=== PATIENT | male | born 1945 | race Caucasian/White ===

== ENCOUNTER 2018-04-03 17:26 | Inpatient (IN) ==
--- NOTE | 2018-04-03 19:45 | Internal Med History&Physical ---
Date of Encounter: 04/04/18 Time of Encounter: 18:58 Assessment and Plan (1) Physical deconditioning Current visit: Yes Status: Acute Patient is admitted with extensive history of medical problems and recently hospitalized at [facility] for Elizabethkingia menigoseptica bacteremia presumed from left lung empyema. He is requiring PT and OT for deconditioning. Therapy will be initiated on Thursday as he came to our facility to late on Thursday. Medically he is stable and receiving IV antibiotics. (2) Bacteremia Current visit: Yes Status: Acute Patient was found to have Elizabethkingia meningoseptica bacteremia that was thought to be due to left lower lobe empyema. A diagnostic thoracentesis though grew no bacteria. He is to be on Levaquin and minocycline for at least 2 weeks (but we still do not have an ID recommendation on paper specifically). He is on the Levaquin every 48 hours. Currently he has no fever, white blood count has been normal and he is feeling much better. He has no acute pulmonary symptoms. Currently he is in contact isolation (3) Anemia Current visit: Yes Status: Chronic Chronically has anemia. He has had upper and lower endoscopies recently without source of any active bleeding. His hemoglobin has been about 7 g when discharged from [facility]. Lab work has been ordered. His long-term anemia intervention in orders is her business and financial counsel Dr. Olivia Hernandez. No active bleeding sites currently. No melena or hematochezia. No cardiac or respiratory symptoms currently. Qualifiers: Anemia type: other cause Other causes of anemia: other cause, not classified Qualified Code(s): D64.89 - Other specified anemias (4) S/P kidney transplant Current visit: No Status: Chronic Status post kidney transplant. Followed by the transplant team at [facility]. He has chronic kidney disease with creatinine in the 2-3 range. [facility] is following his lab work weekly. His fluid restrictions of 2000 mL's daily. He is to avoid salt as well as potassium foods (5) Acute on chronic diastolic CHF (congestive heart failure) Current visit: No Status: Chronic Patient is a history of having had acute on chronic systolic and diastolic heart failure with hypervolemia. His lower extremity edema is much improved. He is now on torsemide 40 mg twice a day and addition of his carvedilol, Imdur and hydralazine. We will monitor his weight daily (6) HTN (hypertension) Current visit: No Status: Chronic Patient is chronic hypertension. Current pressures are reasonable. Continue the same medication from [facility]. Qualifiers: Hypertension type: essential hypertension Qualified Code(s): I10 - Essential (primary) hypertension (7) COPD (chronic obstructive pulmonary disease) Current visit: Yes Status: Acute Chronic COPD, previous tobacco use. Now oxygen dependent. Saturations dropped to the 70s when he is walking. Qualifiers: Emphysema type: unspecified Qualified Code(s): J43.9 - Emphysema, unspecified (8) History of aortic valve replacement with bioprosthetic valve Current visit: No Status: Chronic Currently no angina or CHF. (9) CKD (chronic kidney disease) stage 4, GFR 15-29 ml/min Current visit: Yes Status: Chronic Chronic kidney disease and previous kidney transplant. He is on antirejection medications. Dr. Manning is his business and financial counsel (10) DM type 2 (diabetes mellitus, type 2) Current visit: Yes Status: Chronic Chronically is diabetes. His sugars while hospitalized at [facility] were under good control but he had very little to eat. We anticipate we will need to increase his insulin. We will follow. Qualifiers: Diabetes mellitus complication status: with circulatory complication Qualified Code(s): E11.51 - Type 2 diabetes mellitus with diabetic peripheral angiopathy without gangrene; Z79.4 - shift manager (current) use of insulin; Z79.4 - snf (current) use of insulin; Z79.4 - shift manager (current) use of insulin ; Z79.4 - shift manager (current) use of insulin (11) DVT prophylaxis Current visit: Yes Status: Acute We will continue the DVT prophylaxis with heparin as recommended by [facility] on transfer. Internal Medicine - H&P: HPI Chief complaint: I am here for IV antibiotics and rehab Admitted From: Hospital to Hospital Transfer Plans for Post Hospital Care: Home History of present illness: Mr. Soriano is a 73 year old male with known history of past medical history of systolic and diastolic heart failure, obstructive sleep apnea and on CPAP, chronic hypoxic respiratory failure and oxygen dependent now, status post renal transplant with stage IV chronic kidney disease, recurring transfusions for anemia and negative GI workup, hypertension, status post CABG was transferred to our Rehab Unit for ongoing IV antibiotics and deconditioning. He initially presented to [facility] emergency room with chest pain and dyspnea and upper GI distress, and happened to develop a fever in the ER. 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 He was transferred [facility], he is placed on levofloxacin 750 mg IV every 48 hours and minocycline 200 mg twice a day per infectious disease recommendation. They anticipated ID would recommend 2 more weeks of antibiotics. He underwent diagnostic thoracentesis on 03/27/18 for left sided empyema and later had a chest tube placed. The culture did not grow any bacteria. The chest tube was removed 2 days ago. With treatment he has remained afebrile and his white blood cell count is normal. He does not have any acute respiratory complaints currently. Has occasional cough but breathing much better overall. He has a history of chronic anemia and had 1 unit of blood transfused at [facility]. They continue to monitor his hemoglobin and it has recently slowly dropped down to the 7 g range. He recently has had GI workup twice, including EGD, colonoscopy and capsule endoscopy which were reported as unremarkable. He is on a PPI. He gets Aranesp 60 g weekly and his hemoglobin and anemia issues are followed closely and treatments arranged by Dr. Olivia Rodriguez. Patient also has a history of acute on chronic systolic and diastolic heart failure. He was hypervolemic with diffuse lower extremity edema which is now improved. He was transitioned from IV Lasix to torsemide per nephrology recommendations. He was discharged on torsemide 40 mg twice a day. ( Previously he was also metaxalone Thursday, Thursday and Thursday but apparently that was not to be continued). Chronically he has diabetes. At the hospital he was currently on goal with his Lantus and sliding scale insulin. However it is noted that he was not eating well there. He has a good appetite and is eating better now and will need adjustment on his dosing. Patient has history of hypertension which has been under good control with regimen of carvedilol Imdur and hydralazine. Patient is a history of status post CABG of 4 vessels and history of aortic stenosis and status post AVR. He has not been having any angina at this point. He was previously evaluated by PT and OT at [facility] and they recommended inpatient rehabilitation. Patient becomes dyspneic and hypoxic even on a short walk and requires oxygen. He needed assistance with lower extremity dressing, minimal assistance in the toilet, and needed assistance with ambulation particularly with turning and general weakness and fatigue. Past Med Surg Social Fam HX - Past Medical History Medical history: arthritis, CHF (Systolic and diastolic), COPD, coronary artery disease (CABG 4 vessels), diabetes (Insulin-dependent.), dialysis (No recent dialysis. He has had a kidney transplant.), GERD, GI bleed (History of previous GI bleed. Recent upper and lower endoscopies are negative for source of bleeding), hyperlipidemia, hypertension, peripheral artery disease, renal disease (Status post kidney transplant), valvular heart disease (Status post aortic valve replacement) Additional medical history: ANEMIA Psychiatric history: depression (History of depression well controlled with fluoxetine) - Past Surgical History Surgical History: coronary bypass (CABG) (CABG 4 vessels), heart valve replacement (Aortic valve replacement), transplant (Renal transplant), other Additional surgical history: PIG VALVE AORTIC VALVE REPLACEMENT - Social History Smoking Status: Former smoker Smokeless Tobacco Status: No Alcohol use: none Drug use: none Occupational status: retired Current living situation: Home Activity Level: Mostly sedentary - Family History Mother Adopted: No Family Member Ethnicity: Non- Living Status: Age at : 83 Cause of : Alzheimer's dementia Hx Family Cardiac Disorders: No Hx Family Respiratory Disorders: No Hx Family Cancer: No Hx Family GI Disorders: Yes (Cholecycstectomy) Hx Family Endocrine Disorder: No Hx Family Neuromuscular Disorders: No Hx Family Neurologic Disorders: No Hx Family HEENT Disorders: No Hx Family Autoimmune Disorders: No Father Living Status: Age at : 70 Cause of : Hypertension, prostate cancer Sister Living Status: Still Living Internal Medicine - H&P: Meds Acetaminophen [Tylenol] 325 mg PO Q4HR PRN 05/22/15 [History] Aspirin 81 mg PO DAILY 05/22/15 [History] Saccharomyces Boulardii [Probiotic] 250 mg PO DAILY 05/22/15 [History] Tamsulosin [Flomax] 0.4 mg PO DAILY 05/22/15 [History] Carvedilol [Coreg] 37.5 mg PO BID 04/18/16 [History] Everolimus [Zortress] 0.5 mg PO BID 04/18/16 [History] FLUoxetine HCl [Prozac] 10 mg PO DAILY 04/18/16 [History] Atropine 1% Opth Drops 1 drop LEFT EYE BID 11/04/16 [History] Calcitriol [Rocaltrol] 0.25 mcg PO DAILY 11/04/16 [History] Insulin ASPART [Novolog Flexpen] 100 unit SQ QID PRN 11/04/16 [History] Insulin Glargine [Lantus] 15 - 20 unit SQ DAILY 11/04/16 [History] Budesonide/Formoterol 160/4.5 [Symbicort 160/4.5] 2 puff IH BIDR 04/27/17 [ History] Cholecalciferol (Vitamin D3) [Vitamin D3] 1,000 unit PO DAILY 04/27/17 [History] Umeclidinium [place] [Incruse Ellipta] 62.5 mcg IH DAILY 10/13/17 [History] Albuterol Neb [AccuNeb] 1.25 mg IH Q4HR PRN 04/04/18 [History] Docusate Sodium 100 mg PO BID 04/04/18 [History] Epoetin Abundio [Procrit] 10,000 unit SQ QWEEK 04/04/18 [History] Fluticasone Propionate Nasal [Flonase] 2 spray NS DAILY 04/04/18 [History] Folic Acid 400 mcg PO DAILY 04/04/18 [History] Isosorbide MONOnitrate (24 HR) [Imdur] 30 mg PO DAILY 04/04/18 [History] Levofloxacin 750 MG/150 ML [Levaquin Premix 750mg/150 mL] 750 mg IVPB Q1-2D [History] Minocycline [Minocin] 100 mg PO Q12HR 04/04/18 [History] Pantoprazole Sodium 40 mg PO BID 04/04/18 [History] Polyethylene Glycol 8000 [Polyethylene Glycol] 500 gm MC DAILY 04/04/18 [History ] Torsemide [Demadex] 40 mg PO BID 04/04/18 [History] Vitamin E (Dl,Tocopheryl Acet) [Vitamin E] 400 unit PO BID 04/04/18 [History] hydrALAZINE [HydrALAZINE] 75 mg PO Q8HR 04/04/18 [History] predniSONE [PredniSONE] 5 mg PO DAILY 04/04/18 [History] 3 Allergy/AdvReac Type Severity Reaction Status Date / Time levofloxacin [From Levaquin] Allergy Nausea Verified 04/03/18 20:06 Ayvajyq-Wby-Wrp Reductase Allergy Weakness Verified 04/03/18 20:06 Inhibitor [Statins] - Constitutional Constitutional: fatigue, weakness (Generalized weakness and easy fatigability), no fever(s), no falls - EENT Eyes: no loss of vision Ears: decreased hearing (Chronically has hearing difficulties. Typically he wears his hearing aid.) Nose, mouth and throat: no dysphagia, no mouth pain, no sore throat - Cardiovascular Cardiovascular ROS IM: dyspnea on exertion (He does get short of breath with exertion.), edema (Chronically has lower extremity edema, now markedly improved. ), no chest pain, no dyspnea, no irregular heart rhythm, no orthopnea, no palpitations, no syncope - Respiratory Respiratory: dyspnea on exertion (He does get easily short of breath with ambulation. He requires his oxygen constantly now.), other (He states it feels strange being able to breathe deeply on his left lung.), no dyspnea (No dyspnea at rest.), no wheezing, no pain on inspiration, no chest congestion - Gastrointestinal Gastrointestinal: diarrhea (He had diarrhea after magnesium citrate dosing at [facility] and some incontinence. No current troubles.), no abdominal pain, no constipation, no heartburn, no hematemesis, no loose stools, no melena, no nausea, no vomiting - Genitourinary Genitourinary ROS male: no difficulty urinating, no dysuria - Musculoskeletal Musculoskeletal ROS IM: muscle weakness (Generalized weakness and fatigability.) - Integumentary Integumentary IM: other (Slight skin tear on the right antecubital area. His states that his bottom is red.), no jaundice - Neurological Neurological ROS: weakness (Tries weakness and fatigue.), no confusion, no focal weakness, no radicular pain - Psychiatric Psychiatric: depression (Has had a history of depression and takes fluoxetine. He thinks he is doing relatively well this point. Nothing is worsened and is not suicidal.) - Endocrine Endocrine IM: cold intolerance (He easily gets cold.) - Hematologic/Lymphatic Hematologic/Lymphatic: easy bruising (His multiple bruises particularly on his arms from blood draws.), no lymphadenopathy - Constitutional General appearance: Present: A&O X 3, no acute distress, answers questions appropriately - Eye Eye exam: Present: EOMI. Absent: conjunctival injection, scleral icterus - ENT ENT exam: Present: mucous membranes moist, TM's normal bilaterally Additional comments: He is hard of hearing though. - Neck Neck exam general surgery: Present: full ROM. Absent: lymphadenopathy, tenderness, nuchal rigidity, thyromegaly - Respiratory Additional comments: Slightly diminished breath sounds throughout but clear. This includes the left base which ordinarily has diminished breath sounds and shows good aeration and equal. - Cardiovascular Cardiovascular exam: Present: RRR, +S1, +S2, systolic murmur (2/6 systolic murmur heard over the outlet of the left sternal border.) - GI/Abdominal Additional comments: Abdomen shows his transplant kidney in the right lower quadrant the abdomen and a well-healed scar. He was mildly tender over the left lower quadrant, it appears to be possible hematoma within the skin. No obvious mass otherwise. No guarding or rebound or rigidity. No obvious liver or spleen enlargement. There is no distention. No obvious ascites. - Extremities Exam Additional comments: He has mildly pitting edema two thirds to the knee. However, this is much improved from his recent baseline. There is no calf tenderness. Extremities are warm and dry. Skin is intact, but the heels are very soft, not quite mushy. No blisters or skin breakdown noted in the lower extremities. Upper extremities show multiple bruised areas. He has a small 1 cm skin tear in the right antecubital area without complication. - Incison Comments: Patient has a chest tube drain site in the left lateral chest. Very small incision. No drainage. No redness. Has appropriate tenderness in that area. Covered with sterile dressing. On his left axillary area is a pinpoint-sized area where they first drained fluid and it is healing nicely. Band-Aid was removed. He has a PICC line in the left upper arm area and dressed. - Back Exam Back exam: Absent: CVA tenderness (L), CVA tenderness (R), vertebral tenderness - Neurological Exam Neurological exam: Present: alert, CN II-XII intact (Except he has decreased hearing. This is chronic.), oriented X3, strengths equal and symetr throughout (But has generalized weakness throughout). Absent: altered - Skin Additional comments: He has a 1 cm skin tear in the right antecubital area. Has multiple bruises on both upper extremities. Lower extremities show no skin breakdown but his heels are very soft, not quite mushy. No blisters or bruises noted. The sacral buttock areas show chronic hyperpigmentation from previous skin breakdown. There is a pinpoint-sized open area on the left buttock area near the midline crease. Transverse bruised area noted on the right side.
[2018-04-03] MEDS ORDERED: Albuterol Neb 1.25 MG/3 ML VIAL IH PRN (20:25)
[2018-04-03] MEDS ORDERED: Fluticasone Propionate Nasal 50 MCG/SPRAY BOTTLE NS PRN (20:36)
[2018-04-03] MEDS ORDERED: Dextrose Gel 15 GM/37.5 ML TUBE PO PRN ×2 (20:56)
[2018-04-03] MEDS ORDERED: D5% in Water 1,000 ML IVC PRN (20:56)
[2018-04-03] MEDS ORDERED: *HR* Dextrose 50 % in Water (Syg) 50 ML SYRINGE IVP PRN (20:56)
[2018-04-03] MEDS ORDERED: Insulin DETEMIR 100 UNIT/ML per UNIT SQ ONE (22:00)
[2018-04-03] MEDS: hydrALAZINE 25 MG TABLET PO SCH (22:04)
[2018-04-03] MEDS: Budesonide/Formoterol 160/4.5 1 PUFF INH IH SCH (22:08)
[2018-04-03] MEDS: Insulin LISPRO 300 UNITS/3 ML VIAL SQ SCH (22:09)
[2018-04-03] MEDS: Torsemide 20 MG TABLET PO SCH (22:32)
[2018-04-04] MEDS: *HR* Heparin 5,000 UNIT/ML VIAL SQ SCH ×3 (05:16→22:21)
[2018-04-04] MEDS: hydrALAZINE 25 MG TABLET PO SCH ×3 (05:17→22:22)
[2018-04-04] MEDS: Insulin LISPRO 300 UNITS/3 ML VIAL SQ SCH ×4 (07:44→20:36)
[2018-04-04] MEDS: FLUoxetine HCl 10 MG CAPSULE PO SCH (07:45)
[2018-04-04] MEDS: Folic Acid 1 MG TABLET PO SCH (07:45)
[2018-04-04] MEDS: Aspirin 81 MG TAB.CHEW PO SCH (07:45)
[2018-04-04] MEDS: predniSONE 5 MG TABLET PO SCH (07:45)
[2018-04-04] MEDS: Isosorbide MONOnitrate (24 HR) 30 MG TAB.ER.24H PO SCH (07:46)
[2018-04-04] MEDS: Cholecalciferol (D-3) 1,000 UNIT TABLET PO SCH (07:46)
[2018-04-04] MEDS: Torsemide 20 MG TABLET PO SCH ×2 (07:46→17:13)
[2018-04-04] MEDS: Lactobacillus 1 EACH CAP.SPRINK PO SCH (07:46)
[2018-04-04] MEDS: ZORTRESS PO SCH ×2 (07:47→12:00)
[2018-04-04] MEDS: Atropine 1% Opth Drops 100 DROP/5 ML BOTTLE OP SCH ×2 (07:47→20:25)
[2018-04-04] MEDS: UMECLIDINIUM BROMIDE PO SCH (07:47)
[2018-04-04] MEDS: Budesonide/Formoterol 160/4.5 1 PUFF INH IH SCH ×2 (07:48→22:21)
--- NOTE | 2018-04-04 18:52 | Internal Med Progress Note ---
Date of Encounter: 04/04/18 Time of Encounter: 17:00 - Assessment and plan (1) Physical deconditioning Current Visit: Yes Status: Acute Assessment and plan: He will be initiating therapies tomorrow. (2) Bacteremia Current Visit: Yes Status: Acute Assessment and plan: No fever. No localizing symptoms. Continue with the Levaquin every 48 hours and minocycline every 12 hours. Follow-up lab work for [facility] ordered for the morning (3) Anemia Current Visit: Yes Status: Chronic Assessment and plan: Follow-up lab work ordered for tomorrow. Vitals are stable. Qualifiers: Anemia type: other cause Other causes of anemia: other cause, not classified Qualified Code(s): D64.89 - Other specified anemias (4) S/P kidney transplant Current Visit: No Status: Chronic (5) Acute on chronic diastolic CHF (congestive heart failure) Current Visit: No Status: Chronic Assessment and plan: No signs of congestive heart failure but he does have edema in lower extremities which is improved. (6) HTN (hypertension) Current Visit: No Status: Chronic Assessment and plan: Blood pressure is under good control. Continue same medications. Lab work ordered for tomorrow. Qualifiers: Hypertension type: essential hypertension Qualified Code(s): I10 - Essential (primary) hypertension (7) COPD (chronic obstructive pulmonary disease) Current Visit: Yes Status: Chronic Assessment and plan: Continues wearing his oxygen. Saturations are good. No pulmonary symptoms while in bed. Qualifiers: Emphysema type: unspecified Qualified Code(s): J43.9 - Emphysema, unspecified (8) History of aortic valve replacement with bioprosthetic valve Current Visit: No Status: Chronic (9) CKD (chronic kidney disease) stage 4, GFR 15-29 ml/min Current Visit: Yes Status: Chronic Assessment and plan: Lab work ordered for the morning (10) DM type 2 (diabetes mellitus, type 2) Current Visit: Yes Status: Chronic Assessment and plan: Blood sugar has been in the 200s to 300s. He is eating well. Will slowly get him back up to his 20 units of long-acting nighttime. We will increase from 10 to 14 tonight he has sliding scale available. Qualifiers: Diabetes mellitus complication status: with circulatory complication Qualified Code(s): E11.51 - Type 2 diabetes mellitus with diabetic peripheral angiopathy without gangrene; Z79.4 - aeronautical engineering technologist (current) use of insulin; Z79.4 - aeronautical engineering technologist (current) use of insulin; Z79.4 - custodial (current) use of insulin ; Z79.4 - aeronautical engineering technologist (current) use of insulin (11) DVT prophylaxis Current Visit: Yes Status: Acute - Subjective Interval history: Patient takes he is doing well. Denies any cardiac or respiratory symptoms. His appetite is good. No localizing symptoms currently. He has generalized weakness and fatigue. - Constitutional Vitals: Temp Pulse Resp BP Pulse Ox 98.2 F 72 16 136/55 97 04/04/18 12:00 04/04/18 12:00 04/04/18 12:00 04/04/18 12:00 04/04/18 12:00 General appearance: Present: A&O X 3, no acute distress, answers questions appropriately - Respiratory Respiratory exam: Present: CTAB - Cardiovascular Cardiovascular exam: Present: RRR, +S1, +S2, systolic murmur (2/6 systolic murmur) - GI/Abdominal GI/Abdominal exam: Present: mass (Right lower quadrant renal transplant mass), soft. Absent: tenderness - Extremities Exam Extremities exam: Present: pedal edema (He has less edema of lower extremities. Barely any pitting now.). Absent: calf tenderness, tenderness Consult Discharge Plan - Plan Referrals: Mike Kraus MD [Primary Care Provider] -
[2018-04-04] MEDS ORDERED: Insulin DETEMIR 100 UNIT/ML per UNIT SQ ONE (21:00)
[2018-04-04] MEDS ORDERED: Insulin DETEMIR 100 UNIT/ML X5UNITS SQ SCH (21:00)
[2018-04-05] MEDS: hydrALAZINE 25 MG TABLET PO SCH ×3 (06:16→23:03)
[2018-04-05] MEDS: *HR* Heparin 5,000 UNIT/ML VIAL SQ SCH ×3 (06:16→23:03)
--- NOTE | 2018-04-05 07:02 | Internal Med Progress Note ---
Date of Encounter: 04/05/18 Time of Encounter: 06:59 - Assessment and plan (1) Physical deconditioning Current Visit: Yes Status: Acute Assessment and plan: OT and PT will be initiated today. (2) Bacteremia Current Visit: Yes Status: Acute Assessment and plan: No fever. No localizing symptoms of infection. Continues with his antibiotics. The weekly lab work was drawn today to send to [facility] (3) Anemia Current Visit: Yes Status: Chronic Assessment and plan: Laboratory is pending for today. If his hemoglobin is under 7 we will arrange transfusion Qualifiers: Anemia type: other cause Other causes of anemia: other cause, not classified Qualified Code(s): D64.89 - Other specified anemias (4) S/P kidney transplant Current Visit: No Status: Chronic (5) Acute on chronic diastolic CHF (congestive heart failure) Current Visit: No Status: Chronic Assessment and plan: Currently no signs or symptoms of acute congestive heart failure. He does have chronic edema of lower extremity is which is improved from baseline of a couple weeks ago. His weight is stable (6) HTN (hypertension) Current Visit: No Status: Chronic Assessment and plan: Blood pressure is under control. Lab work pending for today. Qualifiers: Hypertension type: essential hypertension Qualified Code(s): I10 - Essential (primary) hypertension (7) COPD (chronic obstructive pulmonary disease) Current Visit: Yes Status: Chronic Assessment and plan: Currently oxygen dependent. We will continue to monitor with his therapies. Qualifiers: Emphysema type: unspecified Qualified Code(s): J43.9 - Emphysema, unspecified (8) History of aortic valve replacement with bioprosthetic valve Current Visit: No Status: Chronic (9) CKD (chronic kidney disease) stage 4, GFR 15-29 ml/min Current Visit: Yes Status: Chronic Assessment and plan: Weekly lab work is pending for today (10) DM type 2 (diabetes mellitus, type 2) Current Visit: Yes Status: Chronic Assessment and plan: His sugars have been elevated in the 200s and 300s. Last night we increased his long-acting insulin. Lab work pending for this morning. Qualifiers: Diabetes mellitus complication status: with circulatory complication Qualified Code(s): E11.51 - Type 2 diabetes mellitus with diabetic peripheral angiopathy without gangrene; Z79.4 - skilled nursing (current) use of insulin; Z79.4 - skilled nursing (current) use of insulin; Z79.4 - petroleum terminal plant operator (current) use of insulin ; Z79.4 - skilled nursing (current) use of insulin (11) DVT prophylaxis Current Visit: Yes Status: Acute - Subjective Interval history: Patient denies a cardiac or respiratory symptoms. Denies any shortness of breath. He is using his CPAP at night. He uses continuous oxygen. He does get short of breath and weak getting to and from the toilet which is less than 10 feet away. He does not recall having a bowel movement, 1 small one was documented though. I told him to ask for his MiraLAX today. Denies any fevers or chills or rigors. - Constitutional Vitals: Temp Pulse Resp BP Pulse Ox 97.7 F 87 20 135/60 93 04/05/18 00:01 04/05/18 00:01 04/05/18 00:01 04/05/18 00:01 04/05/18 00:01 General appearance: Present: A&O X 3, no acute distress, answers questions appropriately - Respiratory Additional comments: Slightly diminished breath sounds in the extreme left base. No wheezing or rhonchi or respiratory distress. - Cardiovascular Cardiovascular exam: Present: RRR, +S1, +S2, systolic murmur (2/6 systolic murmur) - Extremities Exam Extremities exam: Present: pedal edema (Mild pitting from the mid shins to the feet.). Absent: calf tenderness, tenderness Internal Medicine: Result - Labs Labs: Currently at this time the lab work is pending. Consult Discharge Plan - Plan Referrals: Mike Kraus MD [Primary Care Provider] -
[2018-04-05 07:11] LABS: Basophils % 0.5 %; Eosinophils % 0.3 %; Hematocrit 20.1 % (37.5-50.1); Immature Granulocytes % 1.5 % (0-4); Lymphocytes # 0.5 K/mcL (0.6-4.6); Lymphocytes % 11.6 %; Mean Corpuscular HGB Conc 29.4 g/dL (31.6-35.5); Mean Corpuscular Hemoglobin 25.8 pg (28.0-33.3); Mean Corpuscular Volume 87.8 fL (83.0-100.0); Mean Platelet Volume 10.6 fL (9.4-12.4); Monocytes # 0.8 K/mcL (0.0-1.3); Monocytes % 19.6 %; Neutrophils # 2.6 K/mcL (1.6-8.9); Platelet Count 289 K/mcL (140-400); Red Blood Count 2.29 M/mcL (4.19-5.50); Red Cell Distribution Width 18.2 % (11.5-14.5); Segmented Neutrophils % 66.5 %
[2018-04-05 07:22] LABS: Albumin 2.8 g/dL (3.5-5.7); Albumin/Globulin Ratio 1.2 (1.1-2.2); Bilirubin,Direct 0.1 mg/dL (0.0-0.2); Bilirubin,Indirect 0.3 mg/dL (0.0-1.2); Bilirubin,Total 0.4 mg/dL (0.3-1.0); Calcium 9.4 mg/dL (8.6-10.3); Globulin 2.4 g/dL (2.4-3.5); Potassium 3.7 mEq/L (3.5-5.1); Total Protein 5.2 g/dL (6.4-8.9)
[2018-04-05 07:29] LABS: Hemoglobin 5.9 g/dL (12.9-16.9)
[2018-04-05] MEDS: Insulin LISPRO 300 UNITS/3 ML VIAL SQ SCH ×4 (08:04→23:01)
[2018-04-05] MEDS: Budesonide/Formoterol 160/4.5 1 PUFF INH IH SCH ×2 (08:48→23:05)
[2018-04-05] MEDS: Isosorbide MONOnitrate (24 HR) 30 MG TAB.ER.24H PO SCH (08:51)
[2018-04-05] MEDS: Aspirin 81 MG TAB.CHEW PO SCH (08:51)
[2018-04-05] MEDS: FLUoxetine HCl 10 MG CAPSULE PO SCH (08:52)
[2018-04-05] MEDS: Folic Acid 1 MG TABLET PO SCH (08:52)
[2018-04-05] MEDS: Lactobacillus 1 EACH CAP.SPRINK PO SCH (08:53)
[2018-04-05] MEDS: predniSONE 5 MG TABLET PO SCH (08:54)
[2018-04-05] MEDS: Cholecalciferol (D-3) 1,000 UNIT TABLET PO SCH (08:54)
[2018-04-05] MEDS: Torsemide 20 MG TABLET PO SCH ×2 (08:54→16:54)
[2018-04-05] MEDS: ZORTRESS PO SCH (08:56)
[2018-04-05] MEDS: UMECLIDINIUM BROMIDE PO SCH (09:25)
[2018-04-05] MEDS ORDERED: 0.9 % Sodium Chloride 250 ML ONE (10:24)
[2018-04-05] MEDS: Atropine 1% Opth Drops 100 DROP/5 ML BOTTLE OP SCH ×2 (10:34→23:00)
[2018-04-05] MEDS: Levofloxacin 750 MG/150 ML 750 MG/150 ML BAG IVPB SCH (14:45)
[2018-04-05] MEDS: Insulin DETEMIR 100 UNIT/ML X5UNITS SQ SCH (23:02)
[2018-04-06] MEDS: *HR* Heparin 5,000 UNIT/ML VIAL SQ SCH (05:43)
[2018-04-06] MEDS: hydrALAZINE 25 MG TABLET PO SCH ×3 (05:43→20:30)
[2018-04-06 05:55] LABS: Basophils % 0.5 %; Eosinophils % 0.3 %; Hematocrit 20.6 % (37.5-50.1); Hemoglobin 6.2 g/dL (12.9-16.9); Immature Granulocytes % 1.3 % (0-4); Lymphocytes # 0.5 K/mcL (0.6-4.6); Lymphocytes % 12.6 %; Mean Corpuscular HGB Conc 30.1 g/dL (31.6-35.5); Mean Corpuscular Hemoglobin 26.5 pg (28.0-33.3); Mean Platelet Volume 9.5 fL (9.4-12.4); Monocytes # 0.8 K/mcL (0.0-1.3); Monocytes % 20.4 %; Neutrophils # 2.5 K/mcL (1.6-8.9); Platelet Count 272 K/mcL (140-400); Red Blood Count 2.34 M/mcL (4.19-5.50); Red Cell Distribution Width 17.7 % (11.5-14.5); Segmented Neutrophils % 64.9 %
[2018-04-06] MEDS: Aspirin 81 MG TAB.CHEW PO SCH (10:40)
[2018-04-06] MEDS: Isosorbide MONOnitrate (24 HR) 30 MG TAB.ER.24H PO SCH (10:41)
[2018-04-06] MEDS: Lactobacillus 1 EACH CAP.SPRINK PO SCH (10:41)
[2018-04-06] MEDS: predniSONE 5 MG TABLET PO SCH (10:42)
[2018-04-06] MEDS: FLUoxetine HCl 10 MG CAPSULE PO SCH (10:43)
[2018-04-06] MEDS: Torsemide 20 MG TABLET PO SCH ×2 (10:44→17:58)
[2018-04-06] MEDS: Folic Acid 1 MG TABLET PO SCH (10:46)
[2018-04-06] MEDS: Cholecalciferol (D-3) 1,000 UNIT TABLET PO SCH (10:47)
[2018-04-06] MEDS: ZORTRESS PO SCH (10:51)
[2018-04-06] MEDS: Insulin LISPRO 300 UNITS/3 ML VIAL SQ SCH ×4 (10:51→20:27)
[2018-04-06] MEDS: Atropine 1% Opth Drops 100 DROP/5 ML BOTTLE OP SCH ×2 (10:52→20:26)
[2018-04-06] MEDS: UMECLIDINIUM BROMIDE PO SCH (10:52)
[2018-04-06] MEDS: Budesonide/Formoterol 160/4.5 1 PUFF INH IH SCH ×2 (10:53→20:31)
--- NOTE | 2018-04-06 11:57 | Internal Med Progress Note ---
Date of Encounter: 04/06/18 Time of Encounter: 11:52 - Assessment and plan (1) Physical deconditioning Current Visit: Yes Status: Acute Assessment and plan: His therapy will be held today because of requiring a blood transfusion. We will resume later today or tomorrow. (2) Bacteremia Current Visit: Yes Status: Acute Assessment and plan: Vitals stable. No fever. No subjective symptoms of infection. (3) Anemia Current Visit: Yes Status: Chronic Assessment and plan: He had one unit of blood transfusion she. Today's hemoglobin is 6.2. He will have another unit done today. Afterwards we will recheck another hemoglobin to see if he needs has another unit this afternoon. We are trying to avoid blood transfusion during physical therapy time. I have also forwarded a message to Dr. Peterson regarding management of his iron etc. Qualifiers: Anemia type: other cause Other causes of anemia: other cause, not classified Qualified Code(s): D64.89 - Other specified anemias (4) S/P kidney transplant Current Visit: No Status: Chronic (5) Acute on chronic diastolic CHF (congestive heart failure) Current Visit: No Status: Chronic Assessment and plan: No signs of acute congestive heart failure. (6) HTN (hypertension) Current Visit: No Status: Chronic Qualifiers: Hypertension type: essential hypertension Qualified Code(s): I10 - Essential (primary) hypertension (7) COPD (chronic obstructive pulmonary disease) Current Visit: Yes Status: Chronic Qualifiers: COPD type: emphysema Emphysema type: unspecified Qualified Code(s): J43.9 - Emphysema, unspecified (8) History of aortic valve replacement with bioprosthetic valve Current Visit: No Status: Chronic (9) CKD (chronic kidney disease) stage 4, GFR 15-29 ml/min Current Visit: Yes Status: Chronic (10) DM type 2 (diabetes mellitus, type 2) Current Visit: Yes Status: Chronic Qualifiers: Diabetes mellitus care home insulin use: with care home use Diabetes mellitus complication status: with hyperglycemia Qualified Code(s): E11.65 - Type 2 diabetes mellitus with hyperglycemia; Z79.4 - buttermilk drier operator (current) use of insulin (11) DVT prophylaxis Current Visit: Yes Status: Acute Assessment and plan: We are going to hold the heparin because of his recurring anemia. We will use compression devices on lower extremities. - Subjective Interval history: Patient denies any cardiac or respiratory symptoms. No lightheadedness. He is able get to and from the toilet. No abdominal pain. No obvious signs of bleeding. No melena or hematochezia. No fevers or chills or rigors. - Constitutional Vitals: Temp Pulse Resp BP Pulse Ox 98.8 F 82 14 145/57 96 04/06/18 07:00 04/06/18 07:00 04/06/18 07:00 04/06/18 07:00 04/06/18 07:00 General appearance: Present: A&O X 3, no acute distress, answers questions appropriately - Respiratory Respiratory exam: Present: CTAB (Slightly diminished breath sounds in left base compared to the right. No respiratory distress. No orthopnea.). Absent: rales , wheezes - Cardiovascular Cardiovascular exam: Present: RRR, +S1, +S2, systolic murmur (3/6 systolic murmur heard best at left sternal border.) - GI/Abdominal GI/Abdominal exam: Present: mass (Right lower quadrant renal transplant mass palpable chronically), soft, no peritoneal signs. Absent: tenderness - Extremities Exam Extremities exam: Present: pedal edema (Only trace amount of pretibial edema.). Absent: calf tenderness, tenderness Internal Medicine: Result - Labs CBC & Chem 7: 04/06/18 05:45 04/05/18 06:35 Labs: Short CBC 04/06/18 Range/Units 05:45 WBC 3.9 L (4.3-11.1) K/mcL Hgb 6.2 L (12.9-16.9) g/dL Hct 20.6 L (37.5-50.1) % Plt Count 272 (140-400) K/mcL Neutrophils # 2.5 (1.6-8.9) K/mcL Hemoglobin is down to 6.2. Improved from yesterday and had 1 unit of blood yesterday. Consult Discharge Plan - Plan Referrals: Mike Kraus MD [Primary Care Provider] -
[2018-04-06] MEDS: Insulin DETEMIR 100 UNIT/ML X5UNITS SQ SCH (20:28)
[2018-04-07] MEDS: hydrALAZINE 25 MG TABLET PO SCH ×3 (05:11→20:58)
[2018-04-07 05:58] LABS: Basophils % 0.6 %; Eosinophils % 0.4 %; Hematocrit 24.3 % (37.5-50.1); Hemoglobin 7.5 g/dL (12.9-16.9); Immature Granulocytes % 1.4 % (0-4); Lymphocytes # 0.6 K/mcL (0.6-4.6); Lymphocytes % 11.4 %; Mean Corpuscular HGB Conc 30.9 g/dL (31.6-35.5); Mean Corpuscular Volume 87.4 fL (83.0-100.0); Monocytes % 19.5 %; Neutrophils # 3.3 K/mcL (1.6-8.9); Platelet Count 268 K/mcL (140-400); Red Blood Count 2.78 M/mcL (4.19-5.50); Red Cell Distribution Width 16.9 % (11.5-14.5); Segmented Neutrophils % 66.7 %
[2018-04-07] MEDS: Insulin LISPRO 300 UNITS/3 ML VIAL SQ SCH ×4 (08:14→20:56)
[2018-04-07] MEDS: Aspirin 81 MG TAB.CHEW PO SCH (08:20)
[2018-04-07] MEDS: Cholecalciferol (D-3) 1,000 UNIT TABLET PO SCH (08:21)
[2018-04-07] MEDS: FLUoxetine HCl 10 MG CAPSULE PO SCH (08:21)
[2018-04-07] MEDS: Folic Acid 1 MG TABLET PO SCH (08:21)
[2018-04-07] MEDS: Lactobacillus 1 EACH CAP.SPRINK PO SCH (08:21)
[2018-04-07] MEDS: Torsemide 20 MG TABLET PO SCH ×2 (08:22→16:59)
[2018-04-07] MEDS: Isosorbide MONOnitrate (24 HR) 30 MG TAB.ER.24H PO SCH (08:22)
[2018-04-07] MEDS: predniSONE 5 MG TABLET PO SCH (08:22)
[2018-04-07] MEDS: Atropine 1% Opth Drops 100 DROP/5 ML BOTTLE OP SCH ×2 (08:23→20:56)
[2018-04-07] MEDS: Levofloxacin 750 MG/150 ML 750 MG/150 ML BAG IVPB SCH (08:24)
[2018-04-07] MEDS: Budesonide/Formoterol 160/4.5 1 PUFF INH IH SCH ×2 (08:26→20:55)
[2018-04-07] MEDS: UMECLIDINIUM BROMIDE PO SCH (08:26)
[2018-04-07] MEDS: ZORTRESS PO SCH (08:26)
[2018-04-07] MEDS ORDERED: Nitroglycerin 0.4 MG TAB.SUBL SL PRN (10:34)
[2018-04-07] MEDS ORDERED: Nitroglycerin 0.4 MG TAB.SUBL SL ONE (10:35)
--- NOTE | 2018-04-07 11:02 | Internal Med Progress Note ---
Date of Encounter: 04/07/18 Time of Encounter: 10:36 - Assessment and plan (1) Physical deconditioning Current Visit: Yes Status: Acute Assessment and plan: He is advancing slowly with special therapy, interruptions because of blood transfusions and now chest pain have slowed him down. We will plan to resume therapies after lunch if he has no further chest pains. (2) Bacteremia Current Visit: Yes Status: Acute Assessment and plan: The antibiotics for his bacteremia. No fever or signs of recurrence of infection. (3) Anemia Current Visit: Yes Status: Chronic Assessment and plan: Chronic recurring anemia. He has received 2 units of blood over the past 24 hours. He has had full GI workup couple of times at [facility]. No obvious bleeding sources. 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 We will get baseline BNP, usually this is elevated for him chronically (6) HTN (hypertension) Current Visit: Yes Status: Chronic Qualifiers: Hypertension type: essential hypertension Qualified Code(s): I10 - Essential (primary) hypertension (7) COPD (chronic obstructive pulmonary disease) Current Visit: Yes Status: Chronic Qualifiers: COPD type: emphysema Emphysema type: unspecified Qualified Code(s): J43.9 - Emphysema, unspecified (8) History of aortic valve replacement with bioprosthetic valve Current Visit: No Status: Chronic (9) CKD (chronic kidney disease) stage 4, GFR 15-29 ml/min Current Visit: Yes Status: Chronic (10) DM type 2 (diabetes mellitus, type 2) Current Visit: Yes Status: Chronic Qualifiers: Diabetes mellitus residential insulin use: with residential use Diabetes mellitus complication status: with hyperglycemia Qualified Code(s): E11.65 - Type 2 diabetes mellitus with hyperglycemia; Z79.4 - intermediate project manager (current) use of insulin (11) Chest pain Current Visit: Yes Status: Acute Assessment and plan: I believe his chest pain is noncardiac. It seemed to relieve spontaneously and the nitroglycerin I doubt was of help. His labs and EKG are stable. We will follow clinically. He can resume physical therapy this afternoon if doing well. Cardiology consultation or referral if needed. Qualifiers: Chest pain type: other chest pain Qualified Code(s): R07.89 - Other chest pain; R07.8 - Other chest pain (12) DVT prophylaxis Current Visit: Yes Status: Acute - Subjective Interval history: This morning patient developed chest pain. He states this started in the left side of his chest near the chest tube site and then radiated to left anterior chest below the breast. It started to get more sharp. He denies any dyspnea, radiation to his neck or jaw or shoulder or arm. No related diaphoresis. When I arrived at the bedside his vitals were stable. He did not look uncomfortable. No diaphoresis or dyspnea. We gave him a nitroglycerin sublingually. Did not seem to make much of a difference in the way he looked but he states the pain got better. A friend came to visit at that time and he seemed to be totally comfortable and in no distress. Currently he denies any chest pain, dyspnea, GI or symptoms. All of his above symptoms occurred when he was at rest in his bed. - Constitutional Vitals: Temp Pulse Resp BP Pulse Ox 98.3 F 86 16 136/52 92 04/07/18 07:31 04/07/18 07:31 04/07/18 07:31 04/07/18 07:31 04/07/18 07:31 General appearance: Present: A&O X 3, no acute distress, answers questions appropriately - Respiratory Respiratory exam: Present: decreased breath sounds, CTAB - Cardiovascular Cardiovascular exam: Present: RRR, +S1, +S2, systolic murmur (2 to 3/6 systolic murmur left sternal border.) - GI/Abdominal GI/Abdominal exam: Present: soft. Absent: tenderness - Extremities Exam Additional comments: Small amount of pitting edema in lower extremities, better than his usual baseline at home Internal Medicine: Result - Labs CBC & Chem 7: 04/07/18 11:05 04/07/18 11:05 Labs: Short CBC 04/06/18 04/07/18 Range/Units 16:45 05:35 WBC 4.9 (4.3-11.1) K/mcL Hgb 6.9 L 7.5 L (12.9-16.9) g/dL Hct 24.3 L (37.5-50.1) % Plt Count 268 (140-400) K/mcL Neutrophils # 3.3 (1.6-8.9) K/mcL Patient labs have been reviewed. Hemoglobin is actually increased since the morning. Troponin is negative. Renal function is stable. - Prior EKG Data EKG comments: EKG shows chronic left bundle branch block, anterior fascicular block. T-wave inversions in the lateral leads are improved from baseline. Previous first- degree heart block is gone. No obvious acute ischemic changes noted. - VTE Documentation of Mechanical Device: Intermittent pneumatic compression device Consult Discharge Plan - Plan Referrals: Mike Kraus MD [Primary Care Provider] -
[2018-04-07 11:11] LABS: Basophils % 0.3 %; Eosinophils % 0.3 %; Hemoglobin 7.6 g/dL (12.9-16.9); Immature Granulocytes % 1.4 % (0-4); Lymphocytes # 0.5 K/mcL (0.6-4.6); Lymphocytes % 7.8 %; Mean Corpuscular HGB Conc 31.7 g/dL (31.6-35.5); Mean Corpuscular Hemoglobin 27.6 pg (28.0-33.3); Mean Corpuscular Volume 87.3 fL (83.0-100.0); Mean Platelet Volume 10.3 fL (9.4-12.4); Monocytes # 1.1 K/mcL (0.0-1.3); Monocytes % 19.4 %; Neutrophils # 4.1 K/mcL (1.6-8.9); Platelet Count 284 K/mcL (140-400); Red Blood Count 2.75 M/mcL (4.19-5.50); Red Cell Distribution Width 16.9 % (11.5-14.5); Segmented Neutrophils % 70.8 %
[2018-04-07 11:19] LABS: Anisocytosis 1+ (Not Present); Platelet Estimate Normal (Normal); Poikilocytosis 1+ (Not Present)
[2018-04-07 11:25] LABS: Calcium 9.3 mg/dL (8.6-10.3); Potassium 3.8 mEq/L (3.5-5.1)
[2018-04-07] MEDS: Epoetin Alfa 40,000 UNIT/ML VIAL SQ SCH (12:14)
--- NOTE | 2018-04-07 20:21 | Electrocardiograph Report ---
[place] [id number] Test Date: 2018-04-07 Pat Name: Parish Soriano Department: 2001 Room: 113 Gender: M Consumer Credit Counselor: Tb : 1945 Requested By: Mike Kraus Order Number: [id number] Reading MD: Sandra Yen Measurements Intervals [place] Rate: 82 P: -18 MO: 216 QRS: 7 QRSD: 142 T: 143 QT: 401 QTc: 439 Interpretive Statements SINUS RHYTHM WITH FIRST DEGREE AV BLOCK LEFT BUNDLE BRANCH BLOCK [120+ ms QRS DURATION, 80+ ms Q/S IN V1/V2, 85+ ms R IN I/aVL/V5/V6] Electronically Signed On 04-07-2018 17:03:44 EDT by Sandra Yen
[2018-04-07] MEDS: Insulin DETEMIR 100 UNIT/ML X5UNITS SQ SCH (20:56)
[2018-04-08] MEDS: hydrALAZINE 25 MG TABLET PO SCH ×3 (05:59→22:18)
[2018-04-08] MEDS: Insulin LISPRO 300 UNITS/3 ML VIAL SQ SCH ×4 (08:35→22:20)
[2018-04-08] MEDS: Aspirin 81 MG TAB.CHEW PO SCH (08:36)
[2018-04-08] MEDS: predniSONE 5 MG TABLET PO SCH (08:36)
[2018-04-08] MEDS: Lactobacillus 1 EACH CAP.SPRINK PO SCH (08:36)
[2018-04-08] MEDS: FLUoxetine HCl 10 MG CAPSULE PO SCH (08:37)
[2018-04-08] MEDS: Torsemide 20 MG TABLET PO SCH ×2 (08:37→17:46)
[2018-04-08] MEDS: Isosorbide MONOnitrate (24 HR) 30 MG TAB.ER.24H PO SCH (08:37)
[2018-04-08] MEDS: Folic Acid 1 MG TABLET PO SCH (08:38)
[2018-04-08] MEDS: Cholecalciferol (D-3) 1,000 UNIT TABLET PO SCH (08:39)
[2018-04-08] MEDS: UMECLIDINIUM BROMIDE PO SCH (08:40)
[2018-04-08] MEDS: Budesonide/Formoterol 160/4.5 1 PUFF INH IH SCH ×2 (08:44→22:19)
[2018-04-08] MEDS: Atropine 1% Opth Drops 100 DROP/5 ML BOTTLE OP SCH ×2 (08:45→22:16)
[2018-04-08] MEDS: ZORTRESS PO SCH (08:47)
[2018-04-08] MEDS ORDERED: Ferumoxytol 510 MG in 0.9 % Sodium Chloride 100 ML IVPB ONE (16:00)
--- NOTE | 2018-04-08 17:15 | Internal Med Progress Note ---
Date of Encounter: 04/08/18 Time of Encounter: 17:10 - Assessment and plan (1) Physical deconditioning Current Visit: Yes Status: Acute Assessment and plan: He will continue with his PT and OT. He seems to be tolerating it well. No recurrence of any chest pain. Advance as tolerated. (2) Bacteremia Current Visit: Yes Status: Acute Assessment and plan: Continues with his IV antibiotic every 48 hours and minocycline daily. No fever. No symptoms of infection. We have still not heard back from infectious disease as to what date to follow-up, is supposed to be at 2 weeks. (3) Anemia Current Visit: Yes Status: Chronic Assessment and plan: His last hemoglobin was 7.6. We will recheck tomorrow. No obvious bleeding, melena, hematochezia. We have held his heparin Qualifiers: Anemia type: other cause Other causes of anemia: other cause, not classified Qualified Code(s): D64.89 - Other specified anemias (4) S/P kidney transplant Current Visit: No Status: Chronic (5) Acute on chronic diastolic CHF (congestive heart failure) Current Visit: No Status: Chronic (6) HTN (hypertension) Current Visit: Yes Status: Chronic Assessment and plan: Blood pressure under good control. Qualifiers: Hypertension type: essential hypertension Qualified Code(s): I10 - Essential (primary) hypertension (7) COPD (chronic obstructive pulmonary disease) Current Visit: Yes Status: Chronic Assessment and plan: Still relies on oxygen. Qualifiers: COPD type: emphysema Emphysema type: unspecified Qualified Code(s): J43.9 - Emphysema, unspecified (8) History of aortic valve replacement with bioprosthetic valve Current Visit: No Status: Chronic (9) CKD (chronic kidney disease) stage 4, GFR 15-29 ml/min Current Visit: Yes Status: Chronic (10) DM type 2 (diabetes mellitus, type 2) Current Visit: Yes Status: Chronic Assessment and plan: Sugars are still somewhat elevated. We will increase his Levemir this evening to 16. Typically at home he takes 20 and will advance that direction. Qualifiers: Diabetes mellitus supervisor records change insulin use: with supervisor records change use Diabetes mellitus complication status: with hyperglycemia Qualified Code(s): E11.65 - Type 2 diabetes mellitus with hyperglycemia; Z79.4 - skilled nursing (current) use of insulin (11) DVT prophylaxis Current Visit: Yes Status: Acute Assessment and plan: We discontinue the heparin because of his recurring anemia. He has intermittent compression devices on his lower extremities. No sign of DVT. He is increasing his ambulation and therapies. - Subjective Interval history: Patient states that he has had a good day. Doing well on therapy. Advancing nicely from his point of view. No cardiac chest pain. No dyspnea. His bowel movements have slowed down. He is taking stool softener twice a day. He states his weight is down a pound. - Constitutional Vitals: Temp Pulse Resp BP Pulse Ox 98.1 F 83 17 113/56 97 04/08/18 12:17 04/08/18 12:17 04/08/18 04:00 04/08/18 12:17 04/08/18 12:17 General appearance: Present: A&O X 3, no acute distress, answers questions appropriately Exam: Sitting up at edge of the bed having supper and eating all of it. He is in no distress. - Respiratory Respiratory exam: Present: decreased breath sounds, CTAB - Cardiovascular Cardiovascular exam: Present: RRR, +S1, +S2, systolic murmur (2 to 3/6 systolic murmur) - Extremities Exam Additional comments: Moderate pitting edema of the lower extremities, slightly puffier than yesterday. This is late in the day though. No calf tenderness or redness. Internal Medicine: Result - Labs CBC & Chem 7: 04/07/18 11:05 04/07/18 11:05 - VTE Documentation of Mechanical Device: Intermittent pneumatic compression device Consult Discharge Plan - Plan Referrals: Mike Kraus MD [Primary Care Provider] -
[2018-04-08] MEDS ORDERED: Insulin DETEMIR 100 UNIT/ML per UNIT SQ ONE (21:00)
[2018-04-09] MEDS: hydrALAZINE 25 MG TABLET PO SCH ×3 (06:59→22:20)
--- NOTE | 2018-04-09 07:29 | Internal Med Progress Note ---
Date of Encounter: 04/09/18 Time of Encounter: 07:24 - Assessment and plan (1) Physical deconditioning Current Visit: Yes Status: Acute Assessment and plan: Patient will have his physical therapy held this morning while he gets a blood transfusion. Then can resume after the blood transfusion. He is showing progress in his endurance. Needs continuous oxygen. We will continue with therapy until it is felt that he is safe and is appropriate level of ADLs for discharge. (2) Bacteremia Current Visit: Yes Status: Acute Assessment and plan: Continues with the Levaquin every 48 hours and minocycline orally twice a day. He has follow-up with infectious disease at the 2 week betsey. He has no fever or symptoms of infection. White blood cell count is normal. Weekly blood work scheduled for Thursday (3) Anemia Current Visit: Yes Status: Chronic Assessment and plan: Has recurrence of his anemia with hemoglobin 6.6. He is not symptomatic at this time. No active bleeding sites noted. He has had recent upper and lower GI at [facility]. Nephrology has reinstituted his iron infusions. One unit of blood will be transfused. We will recheck his count this evening and if low again will transfuse in the evening. (we will try to avoid doing transfusions during the daytime when he may be receiving physical therapy instead) Qualifiers: Anemia type: other cause Other causes of anemia: other cause, not classified Qualified Code(s): D64.89 - Other specified anemias (4) S/P kidney transplant Current Visit: No Status: Chronic (5) Acute on chronic diastolic CHF (congestive heart failure) Current Visit: No Status: Chronic Assessment and plan: Lungs are clear. Chronic lower extremity edema has improved. Continue the same diuresis. (6) HTN (hypertension) Current Visit: Yes Status: Chronic Assessment and plan: High blood pressure has been under good control. Stay on the same medication. Lab work ordered for Thursday. Qualifiers: Hypertension type: essential hypertension Qualified Code(s): I10 - Essential (primary) hypertension (7) COPD (chronic obstructive pulmonary disease) Current Visit: Yes Status: Chronic Assessment and plan: Pulmonary status is stable. Needs continuous oxygen. Qualifiers: COPD type: emphysema Emphysema type: unspecified Qualified Code(s): J43.9 - Emphysema, unspecified (8) History of aortic valve replacement with bioprosthetic valve Current Visit: No Status: Chronic (9) CKD (chronic kidney disease) stage 4, GFR 15-29 ml/min Current Visit: Yes Status: Chronic Assessment and plan: His creatinine has been stable, actually slightly improved since his transfer from [facility]. Follow-up blood work scheduled for Thursday. (10) DM type 2 (diabetes mellitus, type 2) Current Visit: Yes Status: Chronic Assessment and plan: Sugars have been under fair control. Has improved since increasing his insulin. We will increase his long-acting insulin to 20 units which is his usual at home. No hypoglycemia noted here Qualifiers: Diabetes mellitus oil heaterman insulin use: with [facility] use Diabetes mellitus complication status: with hyperglycemia Qualified Code(s): E11.65 - Type 2 diabetes mellitus with hyperglycemia; Z79.4 - shelter (current) use of insulin (11) DVT prophylaxis Current Visit: Yes Status: Acute Assessment and plan: Because of his anemia and recurring need for blood transfusion we have discontinued the heparin and initiated lower extremity intermittent compression devices as well as frequent ambulation to avoid DVT. - Subjective Interval history: Patient denies any chest pain, palpitation, dyspnea, GI or symptoms. He said he had a good night rested well. Appetite is good. - Constitutional Vitals: Temp Pulse Resp BP Pulse Ox 97.8 F 87 16 144/62 97 04/09/18 07:17 04/09/18 07:17 04/09/18 07:17 04/09/18 07:17 04/09/18 07:17 General appearance: Present: A&O X 3, no acute distress, answers questions appropriately - Respiratory Respiratory exam: Present: CTAB - Cardiovascular Cardiovascular exam: Present: RRR, +S1, +S2, systolic murmur (2 to 3/6 systolic murmur best heard at the left sternal border) - GI/Abdominal GI/Abdominal exam: Present: mass (Right lower quadrant renal transplant mass), soft. Absent: tenderness - Extremities Exam Additional comments: Still has some mild pitting edema both lower extremities, but starting to get some wrinkles in his feet. No skin breakdown on the heels. Internal Medicine: Result - Labs CBC & Chem 7: 04/09/18 04:38 04/07/18 11:05 Labs: Short CBC 04/09/18 Range/Units 04:38 Hgb 6.6 L (12.9-16.9) g/dL Hemoglobin is 6.6. - VTE Documentation of Mechanical Device: Intermittent pneumatic compression device Consult Discharge Plan - Plan Referrals: Mike Kraus MD [Primary Care Provider] -
[2018-04-09] MEDS: Insulin LISPRO 300 UNITS/3 ML VIAL SQ SCH ×4 (09:26→22:19)
[2018-04-09] MEDS: Isosorbide MONOnitrate (24 HR) 30 MG TAB.ER.24H PO SCH (09:28)
[2018-04-09] MEDS: Aspirin 81 MG TAB.CHEW PO SCH (09:28)
[2018-04-09] MEDS: Folic Acid 1 MG TABLET PO SCH (09:29)
[2018-04-09] MEDS: Lactobacillus 1 EACH CAP.SPRINK PO SCH (09:30)
[2018-04-09] MEDS: FLUoxetine HCl 10 MG CAPSULE PO SCH (09:31)
[2018-04-09] MEDS: predniSONE 5 MG TABLET PO SCH (09:31)
[2018-04-09] MEDS: Cholecalciferol (D-3) 1,000 UNIT TABLET PO SCH (09:31)
[2018-04-09] MEDS: Torsemide 20 MG TABLET PO SCH ×2 (09:31→17:49)
[2018-04-09] MEDS: UMECLIDINIUM BROMIDE PO SCH (09:32)
[2018-04-09] MEDS: Budesonide/Formoterol 160/4.5 1 PUFF INH IH SCH ×2 (09:43→22:20)
[2018-04-09] MEDS: Atropine 1% Opth Drops 100 DROP/5 ML BOTTLE OP SCH ×2 (11:08→22:18)
[2018-04-09] MEDS: ZORTRESS PO SCH (11:09)
[2018-04-09] MEDS: Levofloxacin 750 MG/150 ML 750 MG/150 ML BAG IVPB SCH (12:39)
[2018-04-09] MEDS ORDERED: Insulin DETEMIR 100 UNIT/ML X5UNITS SQ SCH (21:00)
[2018-04-09] MEDS: Insulin DETEMIR 100 UNIT/ML X5UNITS SQ SCH (22:20)
[2018-04-10] MEDS: hydrALAZINE 25 MG TABLET PO SCH ×3 (06:30→21:45)
[2018-04-10] MEDS: Insulin LISPRO 300 UNITS/3 ML VIAL SQ SCH ×4 (08:15→20:22)
[2018-04-10] MEDS: Folic Acid 1 MG TABLET PO SCH (08:16)
[2018-04-10] MEDS: Lactobacillus 1 EACH CAP.SPRINK PO SCH (08:17)
[2018-04-10] MEDS: Torsemide 20 MG TABLET PO SCH ×2 (08:17→17:06)
[2018-04-10] MEDS: Aspirin 81 MG TAB.CHEW PO SCH (08:18)
[2018-04-10] MEDS: Isosorbide MONOnitrate (24 HR) 30 MG TAB.ER.24H PO SCH (08:19)
[2018-04-10] MEDS: Cholecalciferol (D-3) 1,000 UNIT TABLET PO SCH (08:19)
[2018-04-10] MEDS: predniSONE 5 MG TABLET PO SCH (08:19)
[2018-04-10] MEDS: FLUoxetine HCl 10 MG CAPSULE PO SCH (08:20)
[2018-04-10] MEDS: Budesonide/Formoterol 160/4.5 1 PUFF INH IH SCH ×2 (08:22→21:46)
[2018-04-10] MEDS: ZORTRESS PO SCH (08:25)
[2018-04-10] MEDS: Atropine 1% Opth Drops 100 DROP/5 ML BOTTLE OP SCH ×2 (08:25→20:11)
[2018-04-10] MEDS: UMECLIDINIUM BROMIDE PO SCH (08:39)
--- NOTE | 2018-04-10 16:08 | Internal Med Progress Note ---
Date of Encounter: 04/10/18 Time of Encounter: 15:18 - Assessment and plan (1) Physical deconditioning Current Visit: Yes Status: Acute Assessment and plan: - seen with PT today - Continue therapy and advance as tolerated - no potential limitation to therapy identified today including pain (2) Bacteremia Current Visit: Yes Status: Acute Assessment and plan: Continue Levaquin [id number] Continue minocycline BID -total abx [id number] Stable Vital signs Pending ID consultation as outpatient per notes (3) Anemia Current Visit: Yes Status: Chronic Assessment and plan: -most likely combined anemia type of iron def and anemia of chronic inflammation - improved hgb s/p 1 unit RBC - today stable hgb with some improvement from 7.6 to 7.8 - would minimize monitoring blood work to avoid hospital induced anemia Qualifiers: Anemia type: other cause Other causes of anemia: other cause, not classified Qualified Code(s): D64.89 - Other specified anemias (4) S/P kidney transplant Current Visit: No Status: Chronic (5) Acute on chronic diastolic CHF (congestive heart failure) Current Visit: No Status: Chronic (6) HTN (hypertension) Current Visit: Yes Status: Chronic Assessment and plan: controlled Qualifiers: Hypertension type: essential hypertension Qualified Code(s): I10 - Essential (primary) hypertension (7) COPD (chronic obstructive pulmonary disease) Current Visit: Yes Status: Chronic Assessment and plan: - on oxygen for 4 months now - pt self titrate w/o physician monitoring; reporting increasing oxygen when exerting self and at night - pt counselled to only follow the oxygen prescription to avoid depression of respiratory drive and avoid oxygen toxicity Qualifiers: COPD type: emphysema Emphysema type: unspecified Qualified Code(s): J43.9 - Emphysema, unspecified (8) History of aortic valve replacement with bioprosthetic valve Current Visit: No Status: Chronic (9) CKD (chronic kidney disease) stage 4, GFR 15-29 ml/min Current Visit: Yes Status: Chronic (10) DM type 2 (diabetes mellitus, type 2) Current Visit: Yes Status: Chronic Assessment and plan: - sugar this morning at 150 - continue levemir morning at 16u - home levemir at 20u - okay to advance as needed, no changes today Qualifiers: Diabetes mellitus [facility] insulin use: with [facility] use Diabetes mellitus complication status: with hyperglycemia Qualified Code(s): E11.65 - Type 2 diabetes mellitus with hyperglycemia; Z79.4 - termite treater helper (current) use of insulin (11) DVT prophylaxis Current Visit: Yes Status: Acute Assessment and plan: off heparin due to anemia - current recommendations; ambulation - Time Spent With Patient Greater than 35 minutes - Subjective Interval history: Pt was seen walking with therapy this morning and then was seen in his room as well. pt was seen in his room with his Denied: SOB although mentioned that he feels his left lung "has an ice pack" CP Gi or Gu symptoms Last BM reported yesterday; ? constipated but not forced Appetite okay, eats almost 50% of his food Mood stable, and happy to participate in therapy. Reported desire to be outside and did today Had question about his anemia today and the reason for losing Hgb Feels better than yesterday in regard to energy - Constitutional Vitals: Temp Pulse Resp BP Pulse Ox 98.8 F 87 16 136/52 95 04/10/18 07:00 04/10/18 07:00 04/10/18 07:00 04/10/18 07:00 04/10/18 08:54 General appearance: Present: A&O X 3, no acute distress, answers questions appropriately - Head Head exam: Present: atraumatic, normocephalic Additional comments: Nasal canula - Eye Eye exam: Present: PERRL, conjuntiva pink, sclera anicteric Pupils: Present: PERRL - Neck Neck exam general surgery: Present: supple, trachea midline. Absent: lymphadenopathy - Respiratory Respiratory exam: Present: CTAB. Absent: accessory muscle use, rales, rhonchi, wheezes - Cardiovascular Cardiovascular exam: Present: RRR, +S1, +S2. Absent: diastolic murmur, gallop, rubs, systolic murmur - GI/Abdominal GI/Abdominal exam: Present: normal bowel sounds, soft, no peritoneal signs. Absent: distended, tenderness - Extremities Exam Extremities exam: Present: pedal edema, warm, radial pulses palpable and symmetrical. Absent: calf tenderness, cyanotic Additional comments: +2 pitting edema at the knee level bilateral lower extremity - Neurological Exam Neurological exam: Present: CN II-XII intact, oriented X3, no focal deficits. Absent: pronater drift, facial droop, speech deficit - Skin Skin exam: Present: dry, intact Internal Medicine: Result - Labs CBC & Chem 7: 04/09/18 18:30 04/07/18 11:05 Labs: Short CBC 04/09/18 Range/Units 18:30 Hgb 7.8 L (12.9-16.9) g/dL - VTE Documentation of Mechanical Device: Intermittent pneumatic compression device Consult Discharge Plan - Plan Referrals: Mike Kraus MD [Primary Care Provider] -
[2018-04-10] MEDS: Insulin DETEMIR 100 UNIT/ML X5UNITS SQ SCH (20:26)
[2018-04-11] MEDS: hydrALAZINE 25 MG TABLET PO SCH ×3 (05:40→21:38)
[2018-04-11] MEDS: Insulin LISPRO 300 UNITS/3 ML VIAL SQ SCH ×4 (07:55→20:15)
[2018-04-11] MEDS: Torsemide 20 MG TABLET PO SCH ×2 (08:08→17:04)
[2018-04-11] MEDS: Folic Acid 1 MG TABLET PO SCH (08:08)
[2018-04-11] MEDS: Aspirin 81 MG TAB.CHEW PO SCH (08:08)
[2018-04-11] MEDS: Cholecalciferol (D-3) 1,000 UNIT TABLET PO SCH (08:08)
[2018-04-11] MEDS: predniSONE 5 MG TABLET PO SCH (08:08)
[2018-04-11] MEDS: FLUoxetine HCl 10 MG CAPSULE PO SCH (08:08)
[2018-04-11] MEDS: Lactobacillus 1 EACH CAP.SPRINK PO SCH (08:10)
[2018-04-11] MEDS: Isosorbide MONOnitrate (24 HR) 30 MG TAB.ER.24H PO SCH (08:10)
[2018-04-11] MEDS: Levofloxacin 750 MG/150 ML 750 MG/150 ML BAG IVPB SCH (08:12)
[2018-04-11] MEDS: Atropine 1% Opth Drops 100 DROP/5 ML BOTTLE OP SCH ×2 (08:13→20:14)
[2018-04-11] MEDS: Budesonide/Formoterol 160/4.5 1 PUFF INH IH SCH ×2 (08:13→21:40)
[2018-04-11] MEDS: ZORTRESS PO SCH (08:14)
[2018-04-11] MEDS: UMECLIDINIUM BROMIDE PO SCH (08:14)
[2018-04-11 11:56] LABS: Hematocrit 23.6 % (37.5-50.1); Hemoglobin 7.2 g/dL (12.9-16.9)
--- NOTE | 2018-04-11 12:35 | Internal Med Progress Note ---
Date of Encounter: 04/11/18 Time of Encounter: 12:33 - Assessment and plan (1) Physical deconditioning Current Visit: Yes Status: Acute Assessment and plan: - Continue therapy and advance as tolerated - no potential limitation to therapy identified today including pain and Hgb levels (2) Bacteremia Current Visit: Yes Status: Acute Assessment and plan: Continue Levaquin [id number] Continue minocycline BID -total abx [id number] Stable Vital signs Pending ID consultation as outpatient per notes (3) Anemia Current Visit: Yes Status: Chronic Assessment and plan: -most likely combined anemia type of iron def and anemia of chronic inflammation - improved hgb s/p 1 unit RBC -Repeat Hgb stat showed improved from 6.8 to 7.2 - would avoid excessive blood checks to avoid hospital induced anemia on top Qualifiers: Anemia type: other cause Other causes of anemia: other cause, not classified Qualified Code(s): D64.89 - Other specified anemias (4) S/P kidney transplant Current Visit: No Status: Chronic (5) Acute on chronic diastolic CHF (congestive heart failure) Current Visit: No Status: Chronic Assessment and plan: -wt stable still - noted elected BNP on admission as well bilateral lower extremity edema -continue diuretics and monitoring fluid status as needed -Chronic hypoxia is multifactorial at this time; and will continue oxygen -will institute fluid restrictions at 1500cc daily (6) HTN (hypertension) Current Visit: Yes Status: Chronic Assessment and plan: controlled Qualifiers: Hypertension type: essential hypertension Qualified Code(s): I10 - Essential (primary) hypertension (7) COPD (chronic obstructive pulmonary disease) Current Visit: Yes Status: Chronic Assessment and plan: - Chronic hypoxic and on oxygen for 4 months now - pt self titrate w/o physician monitoring; reporting increasing oxygen when exerting self and at night - pt counselled to only follow the oxygen prescription to avoid depression of respiratory drive and avoid oxygen toxicity Qualifiers: COPD type: emphysema Emphysema type: unspecified Qualified Code(s): J43.9 - Emphysema, unspecified (8) History of aortic valve replacement with bioprosthetic valve Current Visit: No Status: Chronic (9) CKD (chronic kidney disease) stage 4, GFR 15-29 ml/min Current Visit: Yes Status: Chronic (10) DM type 2 (diabetes mellitus, type 2) Current Visit: Yes Status: Chronic Assessment and plan: - sugar this morning at 62 and corrected after juice - will decrease levemir morning 16u>>14u - Per notes; home levemir at 20u - diabetic diet Qualifiers: Diabetes mellitus alf insulin use: with intermediate designer use Diabetes mellitus complication status: with hyperglycemia Qualified Code(s): E11.65 - Type 2 diabetes mellitus with hyperglycemia; Z79.4 - shelter (current) use of insulin (11) DVT prophylaxis Current Visit: Yes Status: Acute Assessment and plan: off heparin due to anemia - current recommendations; ambulation - Subjective Interval history: per nursing: received a call that pt 5AM Hgb was 6.8 per nursing and insructed them that I will evaluate pt in the morning pt was seen in his room with his Denied: any changes in breathing or any SOB CP Gi or Gu symptoms constipated; stools are formed Appetite Great! Mood stable, and happy to participate in therapy. Reported desire to be outside - Constitutional Vitals: Temp Pulse Resp BP Pulse Ox 97.6 F 84 16 130/58 96 04/11/18 07:54 04/11/18 07:54 04/11/18 07:54 04/11/18 07:54 04/11/18 07:54 General appearance: Present: A&O X 3, no acute distress, answers questions appropriately - Head Head exam: Present: atraumatic, normocephalic - Eye Eye exam: Present: PERRL, conjuntiva pink, sclera anicteric Pupils: Present: PERRL - Neck Neck exam general surgery: Present: supple, trachea midline. Absent: lymphadenopathy - Respiratory Respiratory exam: Absent: accessory muscle use, rales, rhonchi, wheezes Additional comments: CTA on the Right Sounds Appear to be distant on the Lt base consistent with yesterday's exam - Cardiovascular Cardiovascular exam: Present: RRR, +S1, +S2, systolic murmur. Absent: diastolic murmur, gallop, rubs Additional comments: Correction to yesterday's exam. The pt has a 5/6 systolic murmur - GI/Abdominal GI/Abdominal exam: Present: normal bowel sounds, soft, no peritoneal signs. Absent: distended, tenderness - Extremities Exam Extremities exam: Present: warm, radial pulses palpable and symmetrical. Absent : calf tenderness, cyanotic Additional comments: +2 pitting edema Bilateral lower extremity up to knee level - Neurological Exam Neurological exam: Present: CN II-XII intact, oriented X3, no focal deficits. Absent: pronater drift, facial droop, speech deficit - Skin Skin exam: Present: dry, intact Internal Medicine: Result - Labs CBC & Chem 7: 04/11/18 11:45 04/07/18 11:05 Labs: Short CBC 04/11/18 04/11/18 Range/Units 04:26 11:45 Hgb 6.8 L 7.2 L (12.9-16.9) g/dL Hct 23.6 L (37.5-50.1) % - VTE Documentation of Mechanical Device: Intermittent pneumatic compression device Consult Discharge Plan - Plan Referrals: Mike Kraus MD [Primary Care Provider] -
[2018-04-11] MEDS: Insulin DETEMIR 100 UNIT/ML X5UNITS SQ SCH (20:18)
[2018-04-12] MEDS: hydrALAZINE 25 MG TABLET PO SCH ×3 (05:31→20:13)
--- NOTE | 2018-04-12 07:08 | Internal Med Progress Note ---
Date of Encounter: 04/12/18 Time of Encounter: 07:03 - Assessment and plan (1) Physical deconditioning Current Visit: Yes Status: Acute Assessment and plan: He advances with his therapies. He is having no troubles with pain. Dyspnea is under control with oxygen. I spoke with therapy today and they are going to work with his walker and his own oxygen tank and his and see when it will be safe to go home. I anticipate the next 24-48 hours possibly. (2) Bacteremia Current Visit: Yes Status: Acute Assessment and plan: Nurses are to contact [facility] to see when his follow-up is scheduled. Continue with Levaquin every 48 hours and minocycline twice a day by mouth. No fevers or chills or infectious symptoms. (3) Anemia Current Visit: Yes Status: Chronic Assessment and plan: Continues with chronic anemia. We will try to keep his hemoglobin above 7 gm. He will see Dr. Olivia Rodriguez tomorrow for nephrology consultation. She manages his anemia, iron infusions and Procrit. No obvious bleeding sites. Qualifiers: Anemia type: other cause Other causes of anemia: other cause, not classified Qualified Code(s): D64.89 - Other specified anemias (4) S/P kidney transplant Current Visit: No Status: Chronic (5) Acute on chronic diastolic CHF (congestive heart failure) Current Visit: No Status: Chronic Assessment and plan: He does have extra fluid in his lower extremities but no obvious congestive heart failure. (6) HTN (hypertension) Current Visit: Yes Status: Chronic Assessment and plan: Blood pressures been under good control. Qualifiers: Hypertension type: essential hypertension Qualified Code(s): I10 - Essential (primary) hypertension (7) COPD (chronic obstructive pulmonary disease) Current Visit: Yes Status: Chronic Assessment and plan: requiring oxygen. Qualifiers: COPD type: emphysema Emphysema type: unspecified Qualified Code(s): J43.9 - Emphysema, unspecified (8) History of aortic valve replacement with bioprosthetic valve Current Visit: No Status: Chronic (9) CKD (chronic kidney disease) stage 4, GFR 15-29 ml/min Current Visit: Yes Status: Chronic Assessment and plan: Morning lab work is pending. He sees nephrology tomorrow. (10) DM type 2 (diabetes mellitus, type 2) Current Visit: Yes Status: Chronic Assessment and plan: He did have some mild hypoglycemia in the morning. His evening insulin was cut back from 20-16 units. Will follow at this point. Overall his sugars are reasonably controlled. Qualifiers: Diabetes mellitus jail insulin use: with terminal worker use Diabetes mellitus complication status: with hyperglycemia Qualified Code(s): E11.65 - Type 2 diabetes mellitus with hyperglycemia; Z79.4 - terminal worker (current) use of insulin (11) DVT prophylaxis Current Visit: Yes Status: Acute - Subjective Interval history: Patient denies any respiratory or cardiac symptoms. He states his breathing is at its chronic level like at home. He still requires oxygen. He denies any GI or symptoms except his bowels are not moving well, more gas than stool. His blood sugar went low on morning and he had symptoms. The insulin was decreased. His weight went up about a pound and hospitalist decreased his fluid restriction from 2000 mL to 1500 mL daily. Patient feels that he is getting stronger and is anticipating being able to go home in the next few days. His morning blood work is pending. He has an appointment with nephrology tomorrow. We are checking on follow-up appointment with infectious disease at [facility] - Constitutional Vitals: Temp Pulse Resp BP Pulse Ox 98.1 F 79 17 154/66 99 04/12/18 05:20 04/12/18 05:20 04/12/18 05:20 04/12/18 05:20 04/12/18 05:20 General appearance: Present: A&O X 3, no acute distress, answers questions appropriately - Respiratory Additional comments: Decreased breath sounds in left base with a "hollow" sound. No respiratory distress. No orthopnea. - Cardiovascular Cardiovascular exam: Present: RRR, +S1, +S2, systolic murmur (2/6 systolic murmur) - GI/Abdominal GI/Abdominal exam: Present: soft. Absent: tenderness Additional comments: There is some edema in his skin particularly in his flanks. - Extremities Exam Additional comments: Still has some pitting edema in lower extremities. It appears be stable. He has a few wrinkles in the ankles and feet. Internal Medicine: Result - Labs CBC & Chem 7: 04/11/18 11:45 04/07/18 11:05 Labs: Short CBC 04/11/18 Range/Units 11:45 Hgb 7.2 L (12.9-16.9) g/dL Hct 23.6 L (37.5-50.1) % Morning lab work is pending. - VTE Documentation of Mechanical Device: Intermittent pneumatic compression device Consult Discharge Plan - Plan Referrals: Mike Kraus MD [Primary Care Provider] -
[2018-04-12 07:16] LABS: Basophils % 0.2 %; Eosinophils % 0.4 %; Hematocrit 22.3 % (37.5-50.1); Hemoglobin 6.8 g/dL (12.9-16.9); Immature Granulocytes % 2.1 % (0-4); Lymphocytes # 0.4 K/mcL (0.6-4.6); Mean Corpuscular HGB Conc 30.5 g/dL (31.6-35.5); Mean Corpuscular Hemoglobin 27.5 pg (28.0-33.3); Mean Corpuscular Volume 90.3 fL (83.0-100.0); Mean Platelet Volume 10.5 fL (9.4-12.4); Monocytes % 21.4 %; Neutrophils # 3.3 K/mcL (1.6-8.9); Platelet Count 216 K/mcL (140-400); Red Blood Count 2.47 M/mcL (4.19-5.50); Red Cell Distribution Width 17.9 % (11.5-14.5); Segmented Neutrophils % 66.9 %
[2018-04-12 07:28] LABS: Basophilic Stippling 2+ (Not Present)
[2018-04-12 07:29] LABS: Albumin 2.8 g/dL (3.5-5.7); Bilirubin,Direct 0.2 mg/dL (0.0-0.2); Bilirubin,Indirect 0.3 mg/dL (0.0-1.2); Bilirubin,Total 0.5 mg/dL (0.3-1.0); Calcium 9.6 mg/dL (8.6-10.3); Globulin 2.9 g/dL (2.4-3.5); Potassium 3.6 mEq/L (3.5-5.1); Total Protein 5.7 g/dL (6.4-8.9)
[2018-04-12] MEDS: Insulin LISPRO 300 UNITS/3 ML VIAL SQ SCH ×4 (08:00→20:14)
[2018-04-12] MEDS: UMECLIDINIUM BROMIDE PO SCH (08:01)
[2018-04-12] MEDS: predniSONE 5 MG TABLET PO SCH (08:10)
[2018-04-12] MEDS: Torsemide 20 MG TABLET PO SCH ×2 (08:10→17:23)
[2018-04-12] MEDS: Isosorbide MONOnitrate (24 HR) 30 MG TAB.ER.24H PO SCH (08:10)
[2018-04-12] MEDS: FLUoxetine HCl 10 MG CAPSULE PO SCH (08:10)
[2018-04-12] MEDS: Lactobacillus 1 EACH CAP.SPRINK PO SCH (08:10)
[2018-04-12] MEDS: Folic Acid 1 MG TABLET PO SCH (08:11)
[2018-04-12] MEDS: Aspirin 81 MG TAB.CHEW PO SCH (08:12)
[2018-04-12] MEDS: ZORTRESS PO SCH (08:12)
[2018-04-12] MEDS: Atropine 1% Opth Drops 100 DROP/5 ML BOTTLE OP SCH ×2 (08:18→20:15)
[2018-04-12] MEDS: Cholecalciferol (D-3) 1,000 UNIT TABLET PO SCH (08:18)
[2018-04-12] MEDS: Budesonide/Formoterol 160/4.5 1 PUFF INH IH SCH ×2 (08:18→20:14)
[2018-04-12 16:23] LABS: Hematocrit 22.2 % (37.5-50.1); Hemoglobin 6.7 g/dL (12.9-16.9); Mean Corpuscular HGB Conc 30.2 g/dL (31.6-35.5); Mean Corpuscular Hemoglobin 27.2 pg (28.0-33.3); Mean Corpuscular Volume 90.2 fL (83.0-100.0); Mean Platelet Volume 10.3 fL (9.4-12.4); Platelet Count 228 K/mcL (140-400); Red Blood Count 2.46 M/mcL (4.19-5.50)
--- NOTE | 2018-04-12 20:07 | Physcial Medicine-Consult Note ---
Date of Encounter: 04/12/18 Time of Encounter: 17:00 Physical Medicine - AP (1) Physical deconditioning Status: Acute Assessment and plan: Good progress with rehab. May be able to tolerate a lower O2NC because his current sat is 99% Discharge planning Family Ed. IV therapy, PT and OT. Code(s): R53.81 - Other malaise SNOMED Code(s): 81549582275618 Physical Medicine - HPI - Data of Consult Requesting Physician: Mike Kraus MD Primary Care Provider: Mike Kraus MD - Consult Narrative History of present illness: Mr. Soriano is a 73 year old male CC: Mike Kraus MD 73 year old RH male with known history of past medical history of systolic and diastolic heart failure, obstructive sleep apnea and on CPAP, chronic hypoxic respiratory failure and oxygen dependent now, status post renal transplant with stage IV chronic kidney disease, recurring transfusions for anemia and negative GI workup, hypertension, status post CABG was transferred to our Rehab Unit for ongoing IV antibiotics and deconditioning. He feels he is getting strnger. His O2 requirement is back to baseline at 2LPM. His sat is 99%. He has long standing edema in his legs and uses compression wraps at home. His repeat Hgb today is 6.7 and he is receiving a transfusion. He is hungry on his current dietary restriction. He was hospitalized for 27 days in January and, along with his recent acute hospital stay, has become severely deconditioned. An inpatient rehab stay was medically necessary. Past Med Surg Social Fam HX - Past Medical History Attestation: Yes The following information was validated with the patient. Medical history: arthritis, CHF (Systolic and diastolic), COPD, coronary artery disease (CABG 4 vessels), diabetes (Insulin-dependent.), dialysis (No recent dialysis. He has had a kidney transplant.), GERD, GI bleed (History of previous GI bleed. Recent upper and lower endoscopies are negative for source of bleeding), hyperlipidemia, hypertension, peripheral artery disease, renal disease (Status post kidney transplant), valvular heart disease (Status post aortic valve replacement) Additional medical history: ANEMIA Psychiatric history: depression (History of depression well controlled with fluoxetine) - Past Surgical History Surgical History: coronary bypass (CABG) (CABG 4 vessels), heart valve replacement (Aortic valve replacement), transplant (Renal transplant), other Additional surgical history: PIG VALVE AORTIC VALVE REPLACEMENT - Social History Smoking Status: Former smoker Smokeless Tobacco Status: No Alcohol use: none Drug use: none - Family History Mother Adopted: No Family Member Ethnicity: Non- Living Status: Age at : 83 Cause of : Alzheimer's dementia Hx Family Cardiac Disorders: No Hx Family Respiratory Disorders: No Hx Family Cancer: No Hx Family GI Disorders: Yes (Cholecycstectomy) Hx Family Endocrine Disorder: No Hx Family Neuromuscular Disorders: No Hx Family Neurologic Disorders: No Hx Family HEENT Disorders: No Hx Family Autoimmune Disorders: No Father Living Status: Age at : 70 Cause of : Hypertension, prostate cancer Sister Living Status: Still Living Medications and Allergies Acetaminophen [Tylenol] 325 mg PO Q4HR PRN 05/22/15 [History] Aspirin 81 mg PO DAILY 05/22/15 [History] Saccharomyces Boulardii [Probiotic] 250 mg PO DAILY 05/22/15 [History] Tamsulosin [Flomax] 0.4 mg PO DAILY 05/22/15 [History] Carvedilol [Coreg] 37.5 mg PO BID 04/18/16 [History] Everolimus [Zortress] 0.5 mg PO BID 04/18/16 [History] FLUoxetine HCl [Prozac] 10 mg PO DAILY 04/18/16 [History] Atropine 1% Opth Drops 1 drop LEFT EYE BID 11/04/16 [History] Calcitriol [Rocaltrol] 0.25 mcg PO DAILY 11/04/16 [History] Insulin ASPART [Novolog Flexpen] 100 unit SQ QID PRN 11/04/16 [History] Insulin Glargine [Lantus] 15 - 20 unit SQ DAILY 11/04/16 [History] Budesonide/Formoterol 160/4.5 [Symbicort 160/4.5] 2 puff IH BIDR 04/27/17 [ History] Cholecalciferol (Vitamin D3) [Vitamin D3] 1,000 unit PO DAILY 04/27/17 [History] Umeclidinium [place] [Incruse Ellipta] 62.5 mcg IH DAILY 10/13/17 [History] Albuterol Neb [AccuNeb] 1.25 mg IH Q4HR PRN 04/04/18 [History] Docusate Sodium 100 mg PO BID 04/04/18 [History] Epoetin Abundio [Procrit] 10,000 unit SQ QWEEK 04/04/18 [History] Fluticasone Propionate Nasal [Flonase] 2 spray NS DAILY 04/04/18 [History] Folic Acid 400 mcg PO DAILY 04/04/18 [History] Isosorbide MONOnitrate (24 HR) [Imdur] 30 mg PO DAILY 04/04/18 [History] Levofloxacin 750 MG/150 ML [Levaquin Premix 750mg/150 mL] 750 mg IVPB Q1-2D [History] Minocycline [Minocin] 100 mg PO Q12HR 04/04/18 [History] Pantoprazole Sodium 40 mg PO BID 04/04/18 [History] Polyethylene Glycol 8000 [Polyethylene Glycol] 500 gm MC DAILY 04/04/18 [History ] Torsemide [Demadex] 40 mg PO BID 04/04/18 [History] Vitamin E (Dl,Tocopheryl Acet) [Vitamin E] 400 unit PO BID 04/04/18 [History] hydrALAZINE [HydrALAZINE] 75 mg PO Q8HR 04/04/18 [History] predniSONE [PredniSONE] 5 mg PO DAILY 04/04/18 [History] 3 Allergy/AdvReac Type Severity Reaction Status Date / Time levofloxacin [From Levaquin] Allergy Severe Nausea Verified 04/12/18 20:08 [id number] Reductase Allergy Weakness Verified 04/03/18 20:06 Inhibitor [Statins] All systems: reviewed and no additional remarkable complaints except as stated Physical Medicine - Exam - Constitutional Vitals: Temp Pulse Resp BP Pulse Ox 97.8 F 90 17 103/41 95 04/12/18 18:55 04/12/18 18:55 04/12/18 18:55 04/12/18 18:55 04/12/18 18:55 General appearance: average body habitus, cooperative, no acute distress - Head Head exam: Present: atraumatic, normocephalic - Eye Eye exam: Present: EOMI - ENT ENT exam: Present: mucous membranes moist - Neck Neck exam: Present: full ROM. Absent: tenderness, thyromegaly - Respiratory Respiratory exam: Present: decreased breath sounds. Absent: respiratory distress - Cardiovascular Cardiovascular exam: Present: RRR, systolic murmur - GI/Abdominal GI/Abdominal exam: Present: normal bowel sounds, soft - Extremities Exam Extremities exam: Present: full ROM Additional comments: Strength 4+/5 all. 2-3+ edema BLEs. No calf pain. - Neurological Exam Neurological exam: Present: alert, CN II-XII intact, oriented X3, reflexes normal, no focal deficits, strengths equal and symetr throughout - Psychiatric Psychiatric exam: Present: normal affect, normal mood - Skin Skin exam: Present: intact Physical Medicine - Results - Labs CBC & Chem 7: 04/12/18 16:17 04/12/18 06:50 Labs: Short CBC 04/12/18 04/12/18 Range/Units 06:50 16:17 WBC 4.9 6.2 (4.3-11.1) K/mcL Hgb 6.8 L 6.7 L (12.9-16.9) g/dL Hct 22.3 L 22.2 L (37.5-50.1) % Plt Count 216 228 (140-400) K/mcL Neutrophils # 3.3 (1.6-8.9) K/mcL BMP 04/12/18 06:50 Sodium 139 Potassium 3.6 Chloride 103 Carbon Dioxide 29 BUN 82 H Creatinine 2.72 H Glucose 117 H Calcium 9.6 Liver Function 04/12/18 Range/Units 06:50 Total Bilirubin 0.5 (0.3-1.0) mg/dL Direct Bilirubin 0.2 (0.0-0.2) mg/dL AST 10 L (13-39) Units/L ALT 7 (7-52) Units/L Alkaline Phosphatase 163 H (34-104) Units/L Albumin 2.8 L (3.5-5.7) g/dL Anemia, CKD - Impressions ITS Impressions Chest X-Ray 04/05/18 07:23 IMPRESSION: No significant change in size of left-sided pleural effusion with associated airspace disease which could represent atelectasis or pneumonia. D/ / Donta Delgado MD / Donta Delgado MD Interpreting Provider: Donta Delgado MD Consult Discharge Plan - Plan Referrals: Mike Kraus MD [Primary Care Provider] -
[2018-04-12] MEDS: Insulin DETEMIR 100 UNIT/ML X5UNITS SQ SCH (20:12)
[2018-04-13] MEDS: hydrALAZINE 25 MG TABLET PO SCH ×3 (06:31→20:04)
[2018-04-13] MEDS: Insulin LISPRO 300 UNITS/3 ML VIAL SQ SCH ×4 (07:33→20:02)
[2018-04-13] MEDS: Torsemide 20 MG TABLET PO SCH ×3 (07:40→20:01)
[2018-04-13] MEDS: Atropine 1% Opth Drops 100 DROP/5 ML BOTTLE OP SCH ×2 (07:40→20:00)
[2018-04-13] MEDS: Lactobacillus 1 EACH CAP.SPRINK PO SCH (07:41)
[2018-04-13] MEDS: predniSONE 5 MG TABLET PO SCH (07:41)
[2018-04-13] MEDS: Aspirin 81 MG TAB.CHEW PO SCH (07:42)
[2018-04-13] MEDS: Isosorbide MONOnitrate (24 HR) 30 MG TAB.ER.24H PO SCH (07:43)
[2018-04-13] MEDS: FLUoxetine HCl 10 MG CAPSULE PO SCH (07:43)
[2018-04-13] MEDS: Folic Acid 1 MG TABLET PO SCH (07:43)
[2018-04-13] MEDS: Cholecalciferol (D-3) 1,000 UNIT TABLET PO SCH (07:43)
[2018-04-13] MEDS: Budesonide/Formoterol 160/4.5 1 PUFF INH IH SCH ×2 (07:44→20:02)
[2018-04-13] MEDS: UMECLIDINIUM BROMIDE PO SCH (07:45)
[2018-04-13] MEDS: ZORTRESS PO SCH (07:46)
[2018-04-13] MEDS ORDERED: Ferumoxytol 510 MG in 0.9 % Sodium Chloride 100 ML IVPB ONE ×2 (10:18→14:30)
[2018-04-13] MEDS: Levofloxacin 750 MG/150 ML 750 MG/150 ML BAG IVPB SCH (13:26)
--- NOTE | 2018-04-13 18:09 | Internal Med Progress Note ---
Date of Encounter: 04/13/18 Time of Encounter: 18:04 - Assessment and plan (1) Physical deconditioning Current Visit: Yes Status: Acute Assessment and plan: He is progressing with his therapies and plan is for discharge tomorrow. (2) Bacteremia Current Visit: Yes Status: Acute Assessment and plan: Infectious disease at [facility] recommends continuing antibiotics until seen in the clinic on 04/30/18. We are arranging for home health agency to give him his levofloxacin every 48 hours intravenously. He has no fevers or chills. No obvious infectious symptoms or signs. However, his ESR and CRP have risen. Those results have been sent to [place] as requested. (3) Anemia Current Visit: Yes Status: Chronic Assessment and plan: Ongoing anemia problems. He is requiring a transfusion about every other day. He gets Procrit tomorrow. She had iron infusion as per Dr. Rodriguez's order today. We will check his count in the morning. Qualifiers: Anemia type: other cause Other causes of anemia: other cause, not classified Qualified Code(s): D64.89 - Other specified anemias (4) S/P kidney transplant Current Visit: No Status: Chronic (5) Acute on chronic diastolic CHF (congestive heart failure) Current Visit: No Status: Chronic Assessment and plan: No obvious congestive heart failure or dyspnea of note. He still has edema in lower extremities. We will try to keep his compression device on as well as increase torsemide to 3 times a day (6) HTN (hypertension) Current Visit: Yes Status: Chronic Qualifiers: Hypertension type: essential hypertension Qualified Code(s): I10 - Essential (primary) hypertension (7) COPD (chronic obstructive pulmonary disease) Current Visit: Yes Status: Chronic Qualifiers: COPD type: emphysema Emphysema type: unspecified Qualified Code(s): J43.9 - Emphysema, unspecified (8) History of aortic valve replacement with bioprosthetic valve Current Visit: No Status: Chronic (9) CKD (chronic kidney disease) stage 4, GFR 15-29 ml/min Current Visit: Yes Status: Chronic (10) DM type 2 (diabetes mellitus, type 2) Current Visit: Yes Status: Chronic Qualifiers: Diabetes mellitus retirement insulin use: with truck terminal manager use Diabetes mellitus complication status: with hyperglycemia Qualified Code(s): E11.65 - Type 2 diabetes mellitus with hyperglycemia; Z79.4 - keno terminal operator (current) use of insulin (11) DVT prophylaxis Current Visit: Yes Status: Acute - Subjective Interval history: Patient has been very tired/sleepy today. Apparently he slept through most of his visit with his dev manager. Denies any chest pain. His breathing has been stable. He denies any abdominal pain. He is not hungry for supper tonight. His continue swelling of lower extremities. He and his felt that he got in and out of the car and in and out of the office appropriately well considering he had to wear his oxygen, etc. - Constitutional Vitals: Temp Pulse Resp BP Pulse Ox 97.4 F L 89 16 131/60 96 04/13/18 06:39 04/13/18 06:39 04/13/18 06:39 04/13/18 13:30 04/13/18 00:22 General appearance: Present: A&O X 3, no acute distress, answers questions appropriately Exam: He looks sleepy and tired. But otherwise he is awakened and alert and nontoxic - Respiratory Additional comments: Slightly diminished breath sounds on left side compare the right. No respiratory distress. No rales or rhonchi or wheezing. No orthopnea. - Cardiovascular Cardiovascular exam: Present: RRR, +S1, +S2, systolic murmur (2/6 systolic murmur) - GI/Abdominal GI/Abdominal exam: Present: soft. Absent: tenderness - Extremities Exam Additional comments: Pending edema almost to the knees. Looks a little bit worse today than yesterday. Nontender. No heel breakdown. Internal Medicine: Result - Labs CBC & Chem 7: 04/13/18 05:25 04/12/18 06:50 Labs: Short CBC 04/13/18 Range/Units 05:25 Hgb 7.2 L (12.9-16.9) g/dL Hemoglobin 7.2 after transfusion last night. - VTE Documentation of Mechanical Device: Intermittent pneumatic compression device Consult Discharge Plan - Plan Referrals: Mike Kraus MD [Primary Care Provider] -
--- NOTE | 2018-04-13 18:48 | Discharge Summary ---
- NOTES TO OUTPATIENT PROVIDER Notes to Outpatient Provider: #1. Home Health to evaluate and also arrange Occupational Therapy, Physical Therapy, infusion of his Levaquin every 48 hours and assist being sure blood work done every week for [facility]. #2. He will need frequent hemoglobin testing and possibly transfusions as an outpatient at [facility]. Standing order has been printed. Dr. Rodriguez to be informed of those results as well. #3. Weekly lab work to be done for [facility]. Order has been printed. #4. PICC line care per Home Health Date of Encounter: 04/14/18 Time of Encounter: 10:25 - Discharge Diagnosis (1) Physical deconditioning Priority: Primary Status: Acute Comments: Patient was transferred to [facility] Rehabilitation Unit for deconditioning having had hospitalization at [facility]. He progressed nicely through the PT and OT and now should be safe with his ADLs enough to go home with the care of his , a walker, continuous oxygen. He will need ongoing home health directed PT and OT. Patient is ambulating with his walker. He was able to get in and out of a car and go to and from a doctor's appointment yesterday. (2) Bacteremia Priority: Secondary Status: Acute Comments: Patient is receiving intravenous Levaquin as well as oral minocycline for bacteremia of [place] meningoseptica until his follow-up appointment at infectious disease at [facility] scheduled for 04/30/18. They did not find a specific source of infection even though he had thoracentesis of the left effusion which apparently did not grow bacteria. During the hospital stay he had no fever or chills or signs or symptoms of infection. His white blood cell count has remained normal. However, his CRP and ESR have elevated more. [facility] is following blood work every week. That order has been printed. (3) Anemia Priority: Secondary Status: Chronic Comments: Patient has chronic anemia of iron deficiency as well as chronic kidney disease. He has been receiving blood transfusion about every day or 2 other day or 2 as hemoglobin slips below 7 g. He has received at least 2 iron infusions and gets his weekly Procrit. Dr. Olivia Rodriguez directions those orders. Patient is standing order to get a hemoglobin done and it should be done no later than Thursday of this week. Discharge and globin 7.0. He is not having any angina or CHF. He does have lower extremity edema. Qualifiers: Anemia type: other cause Other causes of anemia: other cause, not classified Qualified Code(s): D64.89 - Other specified anemias (4) S/P kidney transplant Priority: Secondary Status: Chronic Comments: Patient status post kidney transplant and has chronic kidney disease and his creatinine has been in the 2.7 range. He has been followed by Dr. Rodriguez and was seen yesterday. His torsemide was increased from twice a day to 3 times a day. He continues fluid restriction of 1500 mL daily. His weight is down a pound today. Today's weight is 86.4 kg (190 pounds) (5) Acute on chronic diastolic CHF (congestive heart failure) Priority: Secondary Status: Chronic Comments: Patient had history of acute on chronic congestive heart failure when at [facility]. During this hospital stay he has not relapsed. He does have chronic lower extremity edema with mild pitting a most of the knees. He does not tolerate elastic stockings. He has been on compression devices while hospitalized. (6) HTN (hypertension) Priority: Secondary Status: Chronic Comments: Blood pressure has been under relatively good control. No change in his hypertensive medications. Qualifiers: Hypertension type: essential hypertension Qualified Code(s): I10 - Essential (primary) hypertension (7) COPD (chronic obstructive pulmonary disease) Priority: Secondary Status: Chronic Comments: He is now oxygen dependent. Saturations on 2 L run in the high 90s and he can be weaned downward. Without the oxygen he will drop in his 70s with minimal exercise. Even while wearing oxygen and may drop temporarily down to the 80s and recovers quickly. Qualifiers: COPD type: emphysema Emphysema type: unspecified Qualified Code(s): J43.9 - Emphysema, unspecified (8) History of aortic valve replacement with bioprosthetic valve Priority: Secondary Status: Chronic Comments: He has had no CHF or angina during his hospital stay. (9) CKD (chronic kidney disease) stage 4, GFR 15-29 ml/min Priority: Secondary Status: Chronic Comments: As above and followed by Dr. Rodriguez (10) DM type 2 (diabetes mellitus, type 2) Priority: Secondary Status: Chronic Comments: His sugars been under fair control. Sometimes they will be in the 200s. We try to increase his evening long-acting insulin back to 20 units but did have some mornings when it was down to the 60s. He is now back down to 16 units at night and sliding scale during the day. His last like hemoglobin is 4.9% in February, but this is likely falsely low because of his frequent blood transfusions and his Procrit use. Qualifiers: Diabetes mellitus computer terminal operator insulin use: with longterm use Diabetes mellitus complication status: with hyperglycemia Qualified Code(s): E11.65 - Type 2 diabetes mellitus with hyperglycemia; Z79.4 - joint terminal attack controller (current) use of insulin (11) DVT prophylaxis Priority: Secondary Status: Inactive Comments: During hospital stay with his recurring anemia we discontinued his heparin. We used frequent ambulation as well as intermittent compression devices for the lower extremities to help prevent DVT. He has had no calf tenderness or signs of DVT. Hospital course: Mr. Soriano is a 73 year old male was admitted for deconditioning and ongoing treatment for his bacteremia. Please see above diagnoses. Patient has been markedly improved and is stable for discharge today with ongoing home health infusion of the Levaquin and will have close follow-up with [facility] and Dr. Rodriguez. Discharge discussed with: family - Time Spent with Patient Total time spent providing and/or coordinating discharge services: - Discharge Medications Prescriptions: Minocycline [Minocin] 100 mg PO Q12HR 20 Days #40 capsule Polyethylene Glycol 8000 [Polyethylene Glycol] 500 gm MC DAILY 30 Days #30 powder Torsemide [Demadex] 40 mg PO TID #90 tablet Home Medications: Acetaminophen [Tylenol] 325 mg PO Q4HR PRN 05/22/15 [History] Aspirin 81 mg PO DAILY 05/22/15 [History] Saccharomyces Boulardii [Probiotic] 250 mg PO DAILY 05/22/15 [History] Tamsulosin [Flomax] 0.4 mg PO DAILY 05/22/15 [History] Carvedilol [Coreg] 37.5 mg PO BID 04/18/16 [History] Everolimus [Zortress] 0.5 mg PO BID 04/18/16 [History] FLUoxetine HCl [Prozac] 10 mg PO DAILY 04/18/16 [History] Atropine 1% Opth Drops 1 drop LEFT EYE BID 11/04/16 [History] Calcitriol [Rocaltrol] 0.25 mcg PO DAILY 11/04/16 [History] Insulin ASPART [Novolog Flexpen] 100 unit SQ QID PRN 11/04/16 [History] Insulin Glargine [Lantus] 15 - 20 unit SQ DAILY 11/04/16 [History] Budesonide/Formoterol 160/4.5 [Symbicort 160/4.5] 2 puff IH BIDR 04/27/17 [ History] Cholecalciferol (Vitamin D3) [Vitamin D3] 1,000 unit PO DAILY 04/27/17 [History] Umeclidinium [place] [Incruse Ellipta] 62.5 mcg IH DAILY 10/13/17 [History] Albuterol Neb [AccuNeb] 1.25 mg IH Q4HR PRN 04/04/18 [History] Docusate Sodium 100 mg PO BID 04/04/18 [History] Fluticasone Propionate Nasal [Flonase] 2 spray NS DAILY 04/04/18 [History] Folic Acid 400 mcg PO DAILY 04/04/18 [History] Isosorbide MONOnitrate (24 HR) [Imdur] 30 mg PO DAILY 04/04/18 [History] Levofloxacin 750 MG/150 ML [Levaquin Premix 750mg/150 mL] 750 mg IVPB Q1-2D [History] Pantoprazole Sodium 40 mg PO BID 04/04/18 [History] Vitamin E (Dl,Tocopheryl Acet) [Vitamin E] 400 unit PO BID 04/04/18 [History] hydrALAZINE [HydrALAZINE] 75 mg PO Q8HR 04/04/18 [History] predniSONE [PredniSONE] 5 mg PO DAILY 04/04/18 [History] Calcium Carbonate [Tums] 1,250 mg PO TID tab.chew 04/13/18 [Rx] Epoetin Abundio [Procrit] 30,000 unit SQ WE mls 04/13/18 [Rx] Minocycline [Minocin] 100 mg PO Q12HR 20 Days #40 capsule 04/13/18 [Rx] Polyethylene Glycol 8000 [Polyethylene Glycol] 500 gm MC DAILY 30 Days #30 powder 04/13/18 [Rx] Torsemide [Demadex] 40 mg PO TID #90 tablet 04/13/18 [Rx] Allergies/Adverse Reactions: 3 Allergy/AdvReac Type Severity Reaction Status Date / Time levofloxacin [From Levaquin] Allergy Severe Nausea Verified 04/12/18 20:08 [id number] Reductase Allergy Weakness Verified 04/03/18 20:06 Inhibitor [Statins] Date of admission: 04/03/18 18:42 Primary care physician: Mike Kraus MD Consults: 04/03/18 20:16 Consult to Occupational Therapy [CONS] Routine Comment: Evaluate, develop and implement POC Reason for Consult: Eval and Treat Does patient have active BEDREST order?: No Is patient medically & hemodynamically stable?: Yes Patient assessed for mobility or mobilized this visit?: No Consult to Physical Therapy [CONS] Routine Comment: Evaluate, develop and implement POC Reason for Consult: Eval and Treat Does patient have active BEDREST order?: No Is patient medically & hemodynamically stable?: Yes Patient assessed for mobility or mobilized this visit?: No Consult to Recreational Therapy [CONS] Routine Comment: Evaluate, develop and implement POC Consult to Soda Worker [CONS] Routine Reason for SW Consult: discharge planning Discharging clinician: Mike Kraus Anticipated date of discharge: 04/14/18 - Constitutional Vitals: Temp Pulse Resp BP Pulse Ox 97.4 F L 89 16 131/60 96 04/13/18 06:39 04/13/18 06:39 04/13/18 06:39 04/13/18 13:30 04/13/18 00:22 General appearance: Present: A&O X 3, no acute distress, answers questions appropriately Exam: Patient is very sleepy today. No new focal symptoms or signs otherwise. - Respiratory Additional comments: Slightly diminished breath sounds on the left side compared to the right. Otherwise clear and no respiratory distress and no orthopnea. - Cardiovascular Cardiovascular exam: Present: RRR, +S1, +S2, systolic murmur (2/6 systolic murmur over the left sternal border.) - GI/Abdominal GI/Abdominal exam: Present: soft. Absent: tenderness - Extremities Exam Additional comments: Continued edema of lower extremities, mildly pitting to nearly the knee. Weight is down about a pound since yesterday. - Patient Status Disposition: Home Health Service Condition: Fair Functional capacity at discharge: uses cane/walker Overall status at discharge: patient is progressing back to baseline - Discharge Instructions Follow Up With: Mike Kraus MD [Primary Care Provider] - (Follow-up to be arranged by Dr. Kraus's office) - Diet and Activity Activity: ambulate only with your walker, as per physical therapy, increase activity as tolerated, wear oxygen at all times Diet: diabetic diet, low salt diet - VTE Documentation of Mechanical Device: Intermittent pneumatic compression device
--- NOTE | 2018-04-13 18:51 | Physician Discharge Referral ---
Home Health/Hosp Referral Info Transfer to: Home Health Provider in Charge Post Discharge: PCP - Diagnosis (1) Bacteremia Priority: Primary Status: Acute (2) Physical deconditioning Priority: Secondary Status: Acute (3) Anemia Priority: Secondary Status: Chronic (4) S/P kidney transplant Priority: Secondary Status: Chronic (5) Acute on chronic diastolic CHF (congestive heart failure) Priority: Secondary Status: Chronic (6) HTN (hypertension) Priority: Secondary Status: Chronic (7) COPD (chronic obstructive pulmonary disease) Priority: Secondary Status: Chronic (8) History of aortic valve replacement with bioprosthetic valve Priority: Secondary Status: Chronic (9) CKD (chronic kidney disease) stage 4, GFR 15-29 ml/min Priority: Secondary Status: Chronic (10) DM type 2 (diabetes mellitus, type 2) Priority: Secondary Status: Chronic - Respiratory Orders Oxygen / L per min (2 L/nc) Smoking Cessation: Smoking cessation has been advised. For more information, call the [employer] Quit Line at 2-646-CZDV-NOW. - Dressing/Wound Care Site: PICC line care - Diet/Nutrition Diet/Nutrition Orders: No Added Salt (ZAINAB), No Concentrated Sweets - Activity Activity Orders: Walker - Services Needed Following services are medically necessary services: Nursing, Home Health Aide, Physical Therapy, Home Infusion - Transfer Medications Prescriptions: Minocycline [Minocin] 100 mg PO Q12HR 20 Days #40 capsule Polyethylene Glycol 8000 [Polyethylene Glycol] 500 gm MC DAILY 30 Days #30 powder Torsemide [Demadex] 40 mg PO TID #90 tablet Home Medications: Acetaminophen [Tylenol] 325 mg PO Q4HR PRN 05/22/15 [History] Aspirin 81 mg PO DAILY 05/22/15 [History] Saccharomyces Boulardii [Probiotic] 250 mg PO DAILY 05/22/15 [History] Tamsulosin [Flomax] 0.4 mg PO DAILY 05/22/15 [History] Carvedilol [Coreg] 37.5 mg PO BID 04/18/16 [History] Everolimus [Zortress] 0.5 mg PO BID 04/18/16 [History] FLUoxetine HCl [Prozac] 10 mg PO DAILY 04/18/16 [History] Atropine 1% Opth Drops 1 drop LEFT EYE BID 11/04/16 [History] Calcitriol [Rocaltrol] 0.25 mcg PO DAILY 11/04/16 [History] Insulin ASPART [Novolog Flexpen] 100 unit SQ QID PRN 11/04/16 [History] Insulin Glargine [Lantus] 15 - 20 unit SQ DAILY 11/04/16 [History] Budesonide/Formoterol 160/4.5 [Symbicort 160/4.5] 2 puff IH BIDR 04/27/17 [ History] Cholecalciferol (Vitamin D3) [Vitamin D3] 1,000 unit PO DAILY 04/27/17 [History] Umeclidinium [place] [Incruse Ellipta] 62.5 mcg IH DAILY 10/13/17 [History] Albuterol Neb [AccuNeb] 1.25 mg IH Q4HR PRN 04/04/18 [History] Docusate Sodium 100 mg PO BID 04/04/18 [History] Fluticasone Propionate Nasal [Flonase] 2 spray NS DAILY 04/04/18 [History] Folic Acid 400 mcg PO DAILY 04/04/18 [History] Isosorbide MONOnitrate (24 HR) [Imdur] 30 mg PO DAILY 04/04/18 [History] Levofloxacin 750 MG/150 ML [Levaquin Premix 750mg/150 mL] 750 mg IVPB Q1-2D [History] Pantoprazole Sodium 40 mg PO BID 04/04/18 [History] Vitamin E (Dl,Tocopheryl Acet) [Vitamin E] 400 unit PO BID 04/04/18 [History] hydrALAZINE [HydrALAZINE] 75 mg PO Q8HR 04/04/18 [History] predniSONE [PredniSONE] 5 mg PO DAILY 04/04/18 [History] Calcium Carbonate [Tums] 1,250 mg PO TID tab.chew 04/13/18 [Rx] Epoetin Abundio [Procrit] 30,000 unit SQ WE mls 04/13/18 [Rx] Minocycline [Minocin] 100 mg PO Q12HR 20 Days #40 capsule 04/13/18 [Rx] Polyethylene Glycol 8000 [Polyethylene Glycol] 500 gm MC DAILY 30 Days #30 powder 04/13/18 [Rx] Torsemide [Demadex] 40 mg PO TID #90 tablet 04/13/18 [Rx] Allergies/Adverse Reactions: 3 Allergy/AdvReac Type Severity Reaction Status Date / Time levofloxacin [From Levaquin] Allergy Severe Nausea Verified 04/12/18 20:08 [id number] Reductase Allergy Weakness Verified 04/03/18 20:06 Inhibitor [Statins] Certification: Further, I certify that my clinical findings support that this patient is homebound (i.e. absences from home require considerable and taxing effort and are for medical reasons or oriental orthodox services or infrequently or short duration when for other reasons) because: Homebound Reason: Patient requires assistance of a person or device to safely leave home, Absences from home are contraindicated except to recieve medical care, Leaving home requires considerable and taxing effort due to condition Attestation: My signature below is to certify that this patient is under my care and that I, or nurse practitioner, or a physician's camp assistant working with me, has a face-to -face encounter with this patient.
[2018-04-13] MEDS: Insulin DETEMIR 100 UNIT/ML X5UNITS SQ SCH (20:02)
[2018-04-14] MEDS: hydrALAZINE 25 MG TABLET PO SCH (04:55)
[2018-04-14 07:39] VITALS: BP 125/51
[2018-04-14] MEDS: Insulin LISPRO 300 UNITS/3 ML VIAL SQ SCH ×2 (07:58→12:26)
[2018-04-14] MEDS: Lactobacillus 1 EACH CAP.SPRINK PO SCH (08:26)
[2018-04-14] MEDS: Folic Acid 1 MG TABLET PO SCH (08:27)
[2018-04-14] MEDS: FLUoxetine HCl 10 MG CAPSULE PO SCH (08:27)
[2018-04-14] MEDS: predniSONE 5 MG TABLET PO SCH (08:28)
[2018-04-14] MEDS: Isosorbide MONOnitrate (24 HR) 30 MG TAB.ER.24H PO SCH (08:28)
[2018-04-14] MEDS: Cholecalciferol (D-3) 1,000 UNIT TABLET PO SCH (08:28)
[2018-04-14] MEDS: Torsemide 20 MG TABLET PO SCH ×2 (08:29→12:33)
[2018-04-14] MEDS: Budesonide/Formoterol 160/4.5 1 PUFF INH IH SCH (08:29)
[2018-04-14] MEDS: Aspirin 81 MG TAB.CHEW PO SCH (08:29)
[2018-04-14] MEDS: UMECLIDINIUM BROMIDE PO SCH (08:30)
[2018-04-14] MEDS: ZORTRESS PO SCH (08:30)
[2018-04-14] MEDS: Atropine 1% Opth Drops 100 DROP/5 ML BOTTLE OP SCH (08:30)
[2018-04-14] MEDS: Epoetin Alfa 40,000 UNIT/ML VIAL SQ SCH (09:54)
== END 2018-04-14 14:40 | disposition home health service (06) | DRG 945 ==
LOC: INPGRE 18:42
PROVIDERS: ADMIT Family Medicine; ATTEND Family Medicine

== ENCOUNTER 2019-05-02 12:20 | Inpatient (IN) ==
[2019-05-03] MEDS ORDERED: Dextrose Gel 15 GM/37.5 ML TUBE PO PRN ×2 (23:19)
[2019-05-03] MEDS ORDERED: D5% in Water 1,000 ML IVC PRN (23:19)
[2019-05-03] MEDS ORDERED: *HR* Dextrose 50 % in Water (Syg) 50 ML SYRINGE IVP PRN (23:19)
[2019-05-04] MEDS: hydrALAZINE 25 MG TABLET PO SCH ×3 (05:46→20:37)
[2019-05-04 05:53] LABS: Basophils % 0.7 %; Eosinophils # 0.1 K/mcL (0.0-0.6); Eosinophils % 1.5 %; Hematocrit 24.2 % (37.5-50.1); Hemoglobin 7.2 g/dL (12.9-16.9); Immature Granulocytes % 0.5 % (0-4); Lymphocytes # 0.5 K/mcL (0.6-4.6); Lymphocytes % 11.4 %; Mean Corpuscular HGB Conc 29.8 g/dL (31.6-35.5); Mean Corpuscular Hemoglobin 25.4 pg (28.0-33.3); Mean Corpuscular Volume 85.5 fL (83.0-100.0); Mean Platelet Volume 11.4 fL (9.4-12.4); Monocytes # 0.5 K/mcL (0.0-1.3); Monocytes % 12.6 %; Platelet Count 97 K/mcL (140-400); Red Blood Count 2.83 M/mcL (4.19-5.50); Red Cell Distribution Width 18.6 % (11.5-14.5); Segmented Neutrophils % 73.3 %; White Blood Count 4.1 K/mcL (4.3-11.1)
[2019-05-04 05:59] LABS: INR 1.3; Prothrombin Time 14.8 Seconds (9.4-12.1)
[2019-05-04 06:01] LABS: Activated Partial Thrombo Time 40.9 Seconds (26.0-36.0)
[2019-05-04 06:10] LABS: BUN/Creatinine Ratio 30 (6-26); Blood Urea Nitrogen 105 mg/dL (8-23); Vancomycin,Random 28 mcg/mL; eGFR For African Americans 21 (> 60); eGFR For Non-African Americans 17 (> 60)
[2019-05-04] MEDS: Insulin LISPRO 300 UNITS/3 ML VIAL SQ SCH ×4 (08:35→20:36)
[2019-05-04] MEDS ORDERED: Epoetin Alfa 40,000 UNIT/ML VIAL SQ SCH (09:00)
[2019-05-04] MEDS: Isosorbide MONOnitrate (24 HR) 30 MG TAB.ER.24H PO SCH (09:28)
[2019-05-04] MEDS: Everolimus [Zortress] 0.5 MG PO SCH ×2 (09:28→20:37)
[2019-05-04] MEDS: Lactobacillus 1 EACH CAP.SPRINK PO SCH (09:28)
[2019-05-04] MEDS: Torsemide 20 MG TABLET PO SCH ×2 (09:28→17:07)
[2019-05-04] MEDS: Folic Acid 1 MG TABLET PO SCH (09:28)
[2019-05-04] MEDS: Aspirin 81 MG TAB.CHEW PO SCH (09:28)
[2019-05-04] MEDS: amLODIPine 5 MG TABLET PO SCH (09:28)
[2019-05-04] MEDS: Zinc Sulfate 220 MG CAPSULE PO SCH (09:29)
[2019-05-04] MEDS: FLUoxetine HCl 10 MG CAPSULE PO SCH (09:29)
[2019-05-04] MEDS: Vitamin E 200 UNIT (90MG) CAPSULE PO SCH ×2 (09:29→20:36)
--- NOTE | 2019-05-04 09:50 | Internal Med History&Physical ---
Date of Encounter: 05/07/19 Time of Encounter: 09:42 Assessment and Plan (1) Physical deconditioning Current visit: Yes Status: Acute Patient is admitted to rehabilitation unit for deconditioning following hospital stay at [facility] for acute on chronic kidney disease, bacterial endocarditis and other medical problems. He will have therapies here with plan to return to home with his . Currently he is using a walker and is oxygen dependent. He lives in a one-story home his is the caregiver. 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 I did not find any positive blood culture report in the records. 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 He will be on vancomycin for [facility] recommendations and we will follow their orders and will have lab work drawn per their request. He has a PICC line in place. His previous port has been removed (3) Anemia Current visit: Yes Status: Chronic Chronic anemia of chronic disease, chronic kidney disease and known AV malformations. Typically his blood count runs in the 7-8 g range. When it d rops below 7 he receives a unit of blood. He had a blood transfusion in the past 2 days. Hemoglobin is now 7.2. Qualifiers: Anemia type: iron deficiency Iron deficiency anemia type: unspecified iron deficiency Qualified Code(s): D50.9 - Iron deficiency anemia, unspecified (4) CAD (coronary artery disease) of artery bypass graft Current visit: Yes Status: Chronic Known coronary artery disease and history of CABG. Currently he is stable wit hout angina or CHF. He had a recent DOMINGUEZ which showed LV systolic function is normal and estimated EF 55-60%. He has 2 globular mobile masses in the left ventricle attached to the mitral annulus, the larger of which measures approximately 1.53 cm a smaller one of 1.01.5 cm. Differential diagnosis includes vegetation and thrombus. Qualifiers: [place] vs. transplanted heart: [place] heart Associated angina: without angina Qualified Code(s): I25.810 - Atherosclerosis of coronary artery bypass graft(s) without angina pectoris (5) S/P kidney transplant Current visit: Yes Status: Chronic He is followed by housetrailer servicer in [place] as well as Dr. Rodriguez at [place]. His new creatinine baseline is 3-3.5. Laboratory to be obtained twice per week and sent [facility] (6) HTN (hypertension) Current visit: Yes Status: Chronic Long-standing history of hypertension. Currently his blood pressures under control. Continue same medications. Qualifiers: Hypertension type: essential hypertension Qualified Code(s): I10 - Essent ial (primary) hypertension (7) DM (diabetes mellitus) Current visit: Yes Status: Chronic Patient has long-standing history of diabetes. His last glycohemoglobin in January was 7.9%. (this may be underestimated because he has frequent blood transfusions). He now uses long-acting insulin and short acting for coverage. Will follow. Qualifiers: Diabetes mellitus type: type 2 Diabetes mellitus halfway insulin use: with exterminator termite use Diabetes mellitus complication status: with kidney complications Diabetes mellitus complication detail: with chronic kidney disease Chronic kidney disease stage: stage 4 (severe) Qualified Code(s): E11.22 - Type 2 diabetes mellitus with diabetic chronic kidney disease; N18.4 - Chronic kidney disease, stage 4 (severe); Z79.4 - watermelon inspector (current) use of insulin (8) COPD (chronic obstructive pulmonary disease) Current visit: Yes Status: Chronic COPD from previous tobacco use. He is now oxygen dependent. He also has a chronic left pleural effusion, too small to undergo thoracentesis at [facility]. He becomes dyspneic when walking to the dining room to his room, uses 2 L per nasal cannula. To me he looks like he is at his baseline. Qualifiers: COPD type: emphysema Emphysema type: unspecified Qualified Code(s): J43.9 - Emphysema, unspecified (9) History of aortic valve replacement with bioprosthetic valve Current visit: Yes Status: Chronic History of aortic valve replacement. He has a good ejection fraction now. He does have a change of lesions on his mitral valve and being treated for presumed bacteremia from that. (10) CKD (chronic kidney disease) stage 4, GFR 15-29 ml/min Current visit: Yes Status: Chronic His creatinine used to run about 2.5, now his "new baseline" is about 3.5. He is followed by nephrology in [place] as well as Dr. Rodriguez. He will have lab work on a frequent basis. (11) DVT prophylaxis Current visit: Yes Status: Acute With his history of severe anemia, requiring blood transfusions, GI bleed history he is not a good candidate Lovenox/heparin. He will be ambulated every day for prevention of DVT. Internal Medicine - H&P: HPI Chief complaint: I am here to get stronger Admitted From: Hospital to Hospital Transfer Plans for Post Hospital Care: Home History of present illness: Mr. Soriaon is a 74 year old male with known history of CAD status post CABG, bioprosthetic AV, chronic systolic/diastolic heart failure, chronic kidney disease stage IV, status post renal transplant, chronic anemia with history of AV malformations is admitted to a rehabilitation unit with history of deconditioning following hospitalization at [facility]. He was admitted to [facility] 04/18/19 with a history of weakness, falling episode, acute kidney injury on chronic kidney disease. He was eventually found to have new vegetation on mitral valve and felt to have endocarditis. He has a previous history of bacteremia with Elizabethkingia meningoseptia that was treated with vancomycin. I do not see any blood cultures in his chart, I saw a comment that he refused blood cultures for fear it would make his anemia worse. With the new vegetative lesions however he was started on vancomycin. He had a chronic indwelling port and they feel the infection may have seeded from that. It was removed and he had a PICC line placed in the right upper extremity. During his hospital stay he received 1 unit of blood with hemoglobin dropped below 7 to 6.8gms. He had some problems with some urinary retention holding 300 mL and had a catheter for a few days. He is now emptying well and reports only 30 mL residual. He has a chronic left pleural effusion. They planned a thoracentesis but found the pocket of fluid was so small that it was not worth trying to tap it. He was told by his housetrailer servicer in [place] that he is "new baseline" is no longer in the 2 range, it is now in the 3 range. He is here because of deconditioning. He states that his lower extremities are very weak when he walks and his left knee feels like it might give out. Walking for the dining room back to his room he had "burning" in his lower extremities. He does get short of breath easily and is chronically oxygen dependent. After walking back to the room his saturation was 90% at 2 L per nasal cannula. He denies a cardiac type chest pain. Denies any nausea or vomiting. Past Med Surg Social Fam HX - Past Medical History Medical history: arthritis, CHF (History of systolic and diastolic congestive heart failure. Chronic left pleural effusion.), COPD (Oxygen dependent at 2 L), coronary artery disease (Status post CABG), diabetes, dialysis, GERD, GI bleed (History of AV malformations and chronic anemia), hyperlipidemia, hypertension, peripheral artery disease, renal disease (Stage IV CKD, history of recent SAMEER, status post renal transplant), valvular heart disease Additional medical history: kidney transplant Psychiatric history: depression - Past Surgical History Surgical History: coronary bypass (CABG), heart valve replacement (Status post aortic valve replacement), transplant, other Additional surgical history: PIG VALVE AORTIC VALVE REPLACEMENT - Social History Smoking Status: Former smoker Smokeless Tobacco Status: No Alcohol use: none Drug use: none Current living situation: Home, With Family (His is his caregiver. They live in a one-story home now.) Activity Level: Uses cane/walker Recent Out of Country Travel Within the Last 8 Weeks: No Exposure or Possible Exposure to Illness During Travel: No - Family History Mother Adopted: No Family Member Ethnicity: Non- Living Status: Hx Family Cardiac Disorders: No Hx Family Respiratory Disorders: No Hx Family Cancer: No Hx Family GI Disorders: Yes (Cholecycstectomy) Hx Family Endocrine Disorder: No Hx Family Neuromuscular Disorders: No Hx Family Neurologic Disorders: No Hx Family HEENT Disorders: No Hx Family Autoimmune Disorders: No Father Living Status: Sister Living Status: Still Living Internal Medicine - H&P: Meds Acetaminophen [Tylenol] 325 mg PO Q4HR PRN 05/22/15 [History] Saccharomyces Boulardii [Probiotic] 250 mg PO DAILY 05/22/15 [History] Tamsulosin [Flomax] 0.4 mg PO DAILY 05/22/15 [History] Carvedilol [Coreg] 50 mg PO BID 04/18/16 [History] Everolimus [Zortress] 1 mg PO BID 04/18/16 [History] FLUoxetine HCl [Prozac] 10 mg PO DAILY 04/18/16 [History] Calcitriol [Rocaltrol] 0.5 mcg PO DAILY 11/04/16 [History] Insulin ASPART [Novolog Flexpen] 100 unit SQ QID PRN 11/04/16 [History] Insulin Glargine [Lantus] 15 - 20 unit SQ DAILY 11/04/16 [History] Budesonide/Formoterol 160/4.5 [Symbicort 160/4.5] 2 puff IH BIDR 04/27/17 [History] Cholecalciferol (Vitamin D3) [Vitamin D3] 1,000 unit PO DAILY 04/27/17 [History] Albuterol Neb [AccuNeb] 1.25 mg IH Q4HR PRN 04/04/18 [History] Folic Acid 400 mcg PO DAILY 04/04/18 [History] Isosorbide MONOnitrate (24 HR) [Imdur] 30 mg PO DAILY 04/04/18 [History] Vitamin E (Dl,Tocopheryl Acet) [Vitamin E] 400 unit PO BID 04/04/18 [History] hydrALAZINE [HydrALAZINE] 75 mg PO Q8HR 04/04/18 [History] Torsemide [Demadex] 40 mg PO TID #90 tablet 04/13/18 [Rx] Polyethylene Glycol 3350 [MiraLAX Powder Bulk 17.9 Oz] 1 scoop PO DAILY 04/27/18 [History] Epoetin Abundio [Procrit] 30,000 unit SQ QWEEK 05/03/19 [History] Aspirin Enteric Coated [Aspirin EC] 81 mg PO DAILY 05/04/19 [History] Octreotide [SandoSTATIN] 100 mcg SQ BID 05/04/19 [History] Allergy/AdvReac Type Severity Reaction Status Date / Time levofloxacin [From Levaquin] AdvReac Severe Nausea Verified 03/14/19 13:30 Bsswnrc-Omo-Iur Reductase AdvReac Weakness Verified 03/14/19 13:30 Inhibitor [Statins] - Constitutional Constitutional: anorexia, no fever(s), no night sweats - EENT Additional comments: 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 Right eye has fairly good vision. Ears: decreased hearing, no ear discharge, no ear pain Nose, mouth and throat: dry mouth - Cardiovascular Cardiovascular ROS IM: dyspnea, dyspnea on exertion, no chest pain, no diaphoresis, no irregular heart rhythm, no lightheadedness, no palpitations - Respiratory Respiratory: dyspnea, dyspnea on exertion, no wheezing, no pain on inspiration, no chest congestion - Gastrointestinal Gastrointestinal: no abdominal pain, no constipation, no diarrhea, no hematochezia, no nausea, no vomiting Additional comments: He chronically has black stools. - Genitourinary Genitourinary ROS male: urinary frequency (He gets up a few times at night.), no dysuria - Musculoskeletal Musculoskeletal ROS IM: muscle weakness (He feels that his legs are weak particularly the left knee.), no arthralgias - Integumentary Integumentary IM: no rash, no jaundice - Neurological Neurological ROS: frequent falls, loss of vision (Decreased vision of left eye chronically), weakness, no focal weakness - Psychiatric Psychiatric: depression (He takes an antidepressant which he thinks is helpful) - Constitutional Vitals: Temp Pulse Resp BP Pulse Ox 98.5 F 82 16 137/50 90 05/04/19 06:50 05/04/19 06:50 05/04/19 06:50 05/04/19 06:50 05/04/19 06:50 General appearance: Present: A&O X 3, answers questions appropriately Exam: He is minimally dyspneic after walking from the dining room back to 109 - Eye Additional comments: Left eye deviates slightly laterally at times - Neck Neck exam general surgery: Absent: lymphadenopathy, tenderness - Respiratory Additional comments: Slightly diminished breath sounds at left base, overall diminished breath sounds but clear - Cardiovascular Cardiovascular exam: Present: RRR, +S1, +S2, systolic murmur (2 to 3/6 systolic murmur heard in the right second intercostal space with radiation to the apex.) - GI/Abdominal GI/Abdominal exam: Present: mass (Pole mass in the right lower quadrant is his kidney transplant), soft. Absent: tenderness - Extremities Exam Extremities exam: Absent: calf tenderness, cyanotic, pedal edema Additional comments: Right heel shows a small red scabbed area on one side, the plantar and posterior heel area is soft and mushy but no skin breakdown. - Neurological Exam Additional comments: Patient is hard of hearing. Decreased vision left eye. Otherwise moves all extremities appropriately well about focal deficit. - Psychiatric Psychiatric exam: Present: normal affect, normal mood. Absent: suicidal ideation - Skin Additional comments: PICC line in the right upper arm area without signs of infection or redness or tenderness. Foot examination as above Internal Med - H&P Results - Labs CBC & Chem 7: 05/04/19 05:44 05/05/19 05:23 Labs: Short CBC 05/04/19 Range/Units 05:44 WBC 4.1 L (4.3-11.1) K/mcL Hgb 7.2 L (12.9-16.9) g/dL Hct 24.2 L (37.5-50.1) % Plt Count 97 L (140-400) K/mcL Neutrophils # 3.0 (1.6-8.9) K/mcL BMP 05/04/19 05:44 BUN 105 H Creatinine 3.49 H Labs have been reviewed. Hemoglobin is stable. He had blood transfusion 2 days ago when his hemoglobin was 6.8. His creatinine "is at his new baseline"
[2019-05-04] MEDS: Budesonide/Formoterol 160/4.5 1 PUFF INH IH SCH ×2 (11:08→22:39)
[2019-05-04] MEDS: Insulin DETEMIR 100 UNIT/ML X5UNITS SQ SCH (20:38)
[2019-05-05] MEDS: hydrALAZINE 25 MG TABLET PO SCH ×3 (05:30→21:13)
[2019-05-05 05:58] LABS: Calcium 8.4 mg/dL (8.6-10.3); Potassium 4.1 mEq/L (3.5-5.1)
--- NOTE | 2019-05-05 08:16 | Internal Med Progress Note ---
Date of Encounter: 05/05/19 Time of Encounter: 08:16 - Assessment and plan (1) Physical deconditioning Current Visit: Yes Status: Acute Assessment and plan: Is here for PT OT and RT. He was able to ambulate to the dining room. Will improve his physical strength this therapy (2) DVT prophylaxis Current Visit: Yes Status: Acute Assessment and plan: He has had GI bleeds in the past so he is only on ambulation (3) History of bacterial endocarditis Current Visit: Yes Status: Acute Assessment and plan: He is getting his vancomycin through infectious disease (4) Anemia Current Visit: Yes Status: Chronic Assessment and plan: Low but stable Qualifiers: Anemia type: iron deficiency Iron deficiency anemia type: unspecified iron deficiency Qualified Code(s): D50.9 - Iron deficiency anemia, unspecified (5) CKD (chronic kidney disease) stage 4, GFR 15-29 ml/min Current Visit: Yes Status: Chronic Assessment and plan: His creatinine is elevated he has been in the threes this admission. We will continue to monitor especially with the vancomycin (6) DM (diabetes mellitus) Current Visit: Yes Status: Chronic Assessment and plan: Continue his insulin. Qualifiers: Diabetes mellitus type: type 2 Diabetes mellitus marine oil terminal superintendent insulin use: with marine oil terminal superintendent use Diabetes mellitus complication status: with kidney complications Diabetes mellitus complication detail: with chronic kidney disease Chronic kidney disease stage: stage 4 (severe) Qualified Code(s): E11.22 - Type 2 diabetes mellitus with diabetic chronic kidney disease; N18.4 - Chronic kidney disease, stage 4 (severe); Z79.4 - intermediate accountant (current) use of insulin (7) HTN (hypertension) Current Visit: Yes Status: Chronic Assessment and plan: His blood pressure is stable continue his home medication Qualifiers: Hypertension type: essential hypertension Qualified Code(s): I10 - Essential (primary) hypertension (8) S/P kidney transplant Current Visit: Yes Status: Chronic - Subjective Interval history: sitting in the dining room. ambulating better. no pain. no n/v bowels ok, b ladder ok. no cp, no palp, no sob. eating well. no complaints - Constitutional Vitals: Temp Pulse Resp BP Pulse Ox 98.2 F 78 16 131/62 92 05/05/19 07:00 05/05/19 07:00 05/05/19 07:00 05/05/19 07:00 05/05/19 07:00 General appearance: Present: A&O X 3, answers questions appropriately - Head Head exam: Present: atraumatic, normocephalic - Neck Neck exam general surgery: Present: supple, trachea midline. Absent: lymphadenopathy - Respiratory Respiratory exam: Present: CTAB - Cardiovascular Cardiovascular exam: Present: RRR, systolic murmur - GI/Abdominal GI/Abdominal exam: Present: normal bowel sounds, soft, no peritoneal signs. Absent: distended, guarding, rebound, tenderness - Extremities Exam Extremities exam: Absent: pedal edema (left heel soft with yellow socks on) - Skin Skin exam: Present: dry, warm Internal Medicine: Result - Labs CBC & Chem 7: 05/04/19 05:44 05/05/19 05:23 Labs: BMP 05/05/19 05:23 Sodium 139 Potassium 4.1 Chloride 104 Carbon Dioxide 25 BUN 115 H Creatinine 3.66 H Glucose 124 H Calcium 8.4 L - ABG Interpretation ABG results: PT/INR, D-dimer PT 14.8 Seconds (9.4-12.1) H 05/04/19 05:44 Consult Discharge Plan - Plan Referrals: Mike Kraus MD [Primary Care Provider] -
[2019-05-05] MEDS: Insulin LISPRO 300 UNITS/3 ML VIAL SQ SCH ×4 (08:18→21:12)
[2019-05-05] MEDS: Vitamin E 200 UNIT (90MG) CAPSULE PO SCH ×2 (08:19→21:13)
[2019-05-05] MEDS: Aspirin 81 MG TAB.CHEW PO SCH (08:19)
[2019-05-05] MEDS: FLUoxetine HCl 10 MG CAPSULE PO SCH (08:19)
[2019-05-05] MEDS: Zinc Sulfate 220 MG CAPSULE PO SCH (08:20)
[2019-05-05] MEDS: Torsemide 20 MG TABLET PO SCH ×2 (08:20→16:37)
[2019-05-05] MEDS: Lactobacillus 1 EACH CAP.SPRINK PO SCH (08:20)
[2019-05-05] MEDS: amLODIPine 5 MG TABLET PO SCH (08:20)
[2019-05-05] MEDS: Folic Acid 1 MG TABLET PO SCH (08:20)
[2019-05-05] MEDS: Isosorbide MONOnitrate (24 HR) 30 MG TAB.ER.24H PO SCH (08:20)
[2019-05-05] MEDS: Everolimus [Zortress] 0.5 MG PO SCH ×2 (08:29→21:15)
[2019-05-05] MEDS: Budesonide/Formoterol 160/4.5 1 PUFF INH IH SCH ×2 (11:28→20:02)
[2019-05-05] MEDS: Insulin DETEMIR 100 UNIT/ML X5UNITS SQ SCH (21:17)
[2019-05-06] MEDS: Albuterol 2.5 MG/3 ML NEBULIZER IH PRN ×2 (01:40→06:15)
[2019-05-06] MEDS: hydrALAZINE 25 MG TABLET PO SCH ×3 (06:01→21:13)
[2019-05-06] MEDS: Budesonide/Formoterol 160/4.5 1 PUFF INH IH SCH ×2 (06:16→22:01)
--- NOTE | 2019-05-06 07:53 | Internal Med Progress Note ---
Date of Encounter: 05/06/19 Time of Encounter: 07:51 - Assessment and plan (1) Physical deconditioning Current Visit: Yes Status: Acute Assessment and plan: He appears be advancing with his therapies. He is eager to start today. No angina or CHF symptoms with exercising (2) History of bacterial endocarditis Current Visit: Yes Status: Acute Assessment and plan: No fevers or chills. White blood cell count is normal. Labs sent to [facility]. (3) Anemia Current Visit: Yes Status: Chronic Assessment and plan: Anemia is chronic. I need to clarify whether he gets Procrit or Ananesp. He states he takes this every other week, it is written 3 times per week for [facility] and we switched it to once a week. Qualifiers: Anemia type: iron deficiency Iron deficiency anemia type: unspecified iron deficiency Qualified Code(s): D50.9 - Iron deficiency anemia, unspecified (4) CAD (coronary artery disease) of artery bypass graft Current Visit: Yes Status: Chronic Assessment and plan: No angina or CHF. Qualifiers: [place] vs. transplanted heart: [place] heart Associated angina: without angina Qualified Code(s): I25.810 - Atherosclerosis of coronary artery bypass graft(s) without angina pectoris (5) S/P kidney transplant Current Visit: Yes Status: Chronic (6) HTN (hypertension) Current Visit: Yes Status: Chronic Assessment and plan: Blood pressure is under good control. Qualifiers: Hypertension type: essential hypertension Qualified Code(s): I10 - Essential (primary) hypertension (7) DM (diabetes mellitus) Current Visit: Yes Status: Chronic Assessment and plan: Continue current regimen. Following his Accu-Cheks. Qualifiers: Diabetes mellitus type: type 2 Diabetes mellitus intermediate insulin use: wi termination clerk use Diabetes mellitus complication status: with kidney compl ications Diabetes mellitus complication detail: with chronic kidney disease Chronic kidney disease stage: stage 4 (severe) Qualified Code(s): E11.22 - Type 2 diabetes mellitus with diabetic chronic kidney disease; N18.4 - Chronic kidney disease, stage 4 (severe); Z79.4 - intermediate designer (current) use of insulin (8) COPD (chronic obstructive pulmonary disease) Current Visit: Yes Status: Chronic Assessment and plan: Had nebulizer treatments in the night. Doing well this morning. Saturations good. Qualifiers: COPD type: emphysema Emphysema type: unspecified Qualified Code(s): J43.9 - Emphysema, unspecified (9) History of aortic valve replacement with bioprosthetic valve Current Visit: Yes Status: Chronic Assessment and plan: no angina or CHF (10) CKD (chronic kidney disease) stage 4, GFR 15-29 ml/min Current Visit: Yes Status: Chronic Assessment and plan: Creatinine 3.66, this is at his new baseline. Labs should have been sent [facility]. (11) DVT prophylaxis Current Visit: Yes Status: Acute - Subjective Interval history: Patient states he is doing well this morning, he is hungry and also eager to start therapy for the day. In the middle the night he had dyspnea and required 2 nebulizer treatments. He said that made a world of difference. He denies any cardiac type chest pain, sputum production. He chronically uses oxygen. Saturations are good now. - Constitutional Vitals: Temp Pulse Resp BP Pulse Ox 97.8 F 77 16 138/60 94 05/05/19 19:20 05/05/19 19:20 05/06/19 06:18 05/06/19 06:00 05/06/19 06:18 General appearance: Present: A&O X 3, answers questions appropriately Exam: He is sitting up in a chair and dressed and looks good. No distress. He is wearing his oxygen. - Respiratory Respiratory exam: Present: CTAB - Cardiovascular Cardiovascular exam: Present: RRR, +S1, +S2, systolic murmur (1/6 systolic murmur and intermittent split S2.) - GI/Abdominal GI/Abdominal exam: Present: soft. Absent: tenderness - Extremities Exam Extremities exam: Absent: calf tenderness, pedal edema Internal Medicine: Result - Labs CBC & Chem 7: 05/04/19 05:44 05/05/19 05:23 Labs: Labs have been reviewed. Hemoglobin stable. Creatinine 3.66. Labs should have been sent to [facility]. - ABG Interpretation ABG results: PT/INR, D-dimer PT 14.8 Seconds (9.4-12.1) H 05/04/19 05:44 Consult Discharge Plan - Plan Referrals: Mike Kraus MD [Primary Care Provider] -
[2019-05-06] MEDS: Vitamin E 200 UNIT (90MG) CAPSULE PO SCH ×2 (09:00→21:13)
[2019-05-06] MEDS: Isosorbide MONOnitrate (24 HR) 30 MG TAB.ER.24H PO SCH (09:00)
[2019-05-06] MEDS: amLODIPine 5 MG TABLET PO SCH (09:00)
[2019-05-06] MEDS: Lactobacillus 1 EACH CAP.SPRINK PO SCH (09:00)
[2019-05-06] MEDS: Aspirin 81 MG TAB.CHEW PO SCH (09:01)
[2019-05-06] MEDS: Torsemide 20 MG TABLET PO SCH ×2 (09:01→17:38)
[2019-05-06] MEDS: FLUoxetine HCl 10 MG CAPSULE PO SCH (09:01)
[2019-05-06] MEDS: Zinc Sulfate 220 MG CAPSULE PO SCH (09:01)
[2019-05-06] MEDS: Folic Acid 1 MG TABLET PO SCH (09:01)
[2019-05-06] MEDS: Everolimus [Zortress] 0.5 MG PO SCH ×2 (09:03→21:13)
[2019-05-06] MEDS: Insulin LISPRO 300 UNITS/3 ML VIAL SQ SCH ×4 (09:06→20:52)
[2019-05-06] MEDS: Insulin DETEMIR 100 UNIT/ML X5UNITS SQ SCH (21:13)
[2019-05-07] MEDS: hydrALAZINE 25 MG TABLET PO SCH ×3 (05:13→21:20)
[2019-05-07] MEDS: Folic Acid 1 MG TABLET PO SCH (08:45)
[2019-05-07] MEDS: FLUoxetine HCl 10 MG CAPSULE PO SCH (08:46)
[2019-05-07] MEDS: Vitamin E 200 UNIT (90MG) CAPSULE PO SCH ×2 (08:46→21:19)
[2019-05-07] MEDS: Torsemide 20 MG TABLET PO SCH ×2 (08:46→17:00)
[2019-05-07] MEDS: Everolimus [Zortress] 0.5 MG PO SCH ×2 (08:46→21:22)
[2019-05-07] MEDS: Aspirin 81 MG TAB.CHEW PO SCH (08:47)
[2019-05-07] MEDS: Zinc Sulfate 220 MG CAPSULE PO SCH (08:47)
[2019-05-07] MEDS: Lactobacillus 1 EACH CAP.SPRINK PO SCH (08:47)
[2019-05-07] MEDS: Budesonide/Formoterol 160/4.5 1 PUFF INH IH SCH ×2 (08:47→21:22)
[2019-05-07] MEDS: amLODIPine 5 MG TABLET PO SCH (08:47)
[2019-05-07] MEDS: Isosorbide MONOnitrate (24 HR) 30 MG TAB.ER.24H PO SCH (08:47)
[2019-05-07] MEDS: Insulin LISPRO 300 UNITS/3 ML VIAL SQ SCH ×4 (08:48→21:25)
--- NOTE | 2019-05-07 16:57 | Internal Med Progress Note ---
Date of Encounter: 05/07/19 Time of Encounter: 16:54 - Assessment and plan (1) Physical deconditioning Current Visit: Yes Status: Acute Assessment and plan: He continues with physical and occupational therapy and increasing his ADLs. No angina or CHF. (2) History of bacterial endocarditis Current Visit: Yes Status: Acute Assessment and plan: No angina or CHF. No fevers. (3) Anemia Current Visit: Yes Status: Chronic Assessment and plan: Chronic anemia. His lab hemoglobin is being tested twice a week. No obvious hemorrhages noted. Qualifiers: Anemia type: iron deficiency Iron deficiency anemia type: unspecified iron deficiency Qualified Code(s): D50.9 - Iron deficiency anemia, unspecified (4) CAD (coronary artery disease) of artery bypass graft Current Visit: Yes Status: Chronic Assessment and plan: No angina or CHF. Qualifiers: [place] vs. transplanted heart: [place] heart Associated angina: without angina Qualified Code(s): I25.810 - Atherosclerosis of coronary artery bypass graft(s) without angina pectoris (5) S/P kidney transplant Current Visit: Yes Status: Chronic Assessment and plan: Renal function being followed twice a week by [facility] (6) HTN (hypertension) Current Visit: Yes Status: Chronic Assessment and plan: Blood pressure under good control. Stay on the same medication. Qualifiers: Hypertension type: essential hypertension Qualified Code(s): I10 - Essential (primary) hypertension (7) DM (diabetes mellitus) Current Visit: Yes Status: Chronic Assessment and plan: Sugars are somewhat labile. Mildly increased at times. We will follow. Need to avoid hypoglycemia. Qualifiers: Diabetes mellitus type: type 2 Diabetes mellitus roasterman insulin use: with roasterman use Diabetes mellitus complication status: with kidney complications Diabetes mellitus complication detail: with chronic kidney disease Chronic kidney disease stage: stage 4 (severe) Qualified Code(s): E11.22 - Type 2 diabetes mellitus with diabetic chronic kidney disease; N18.4 - Chronic kidney disease, stage 4 (severe); Z79.4 - care home (current) use of insulin (8) COPD (chronic obstructive pulmonary disease) Current Visit: Yes Status: Chronic Assessment and plan: Oxygen dependent. Saturations are good. Qualifiers: COPD type: emphysema Emphysema type: unspecified Qualified Code(s): J43.9 - Emphysema, unspecified (9) History of aortic valve replacement with bioprosthetic valve Current Visit: Yes Status: Chronic (10) CKD (chronic kidney disease) stage 4, GFR 15-29 ml/min Current Visit: Yes Status: Chronic Assessment and plan: Followed by transplant team twice a week. (11) DVT prophylaxis Current Visit: Yes Status: Acute Assessment and plan: He is not anticoagulated because of history of anemia/GI bleed and need for blood transfusions. He is ambulated frequently. Elastic stockings have been recommended. - Subjective Interval history: Patient thinks that he is doing well. This morning he was sleepy because he is up late last night watching TV. He had a very short episode of feeling of shortness of breath but it was transient. He did not have that during therapy. He did his therapy today without difficulty or problem. He denies any cardiac or respiratory symptoms. He is wearing his oxygen all the time. Elastic stockings "cut off my circulation" so he does not want to use them. - Constitutional Vitals: Temp Pulse Resp BP Pulse Ox 98.4 F 76 16 117/52 96 05/07/19 07:26 05/07/19 07:26 05/07/19 07:26 05/07/19 12:58 05/07/19 07:26 General appearance: Present: A&O X 3, answers questions appropriately - Respiratory Respiratory exam: Present: CTAB - Cardiovascular Cardiovascular exam: Present: RRR, +S1, +S2, systolic murmur (2/6 systolic murmur. Occasional ectopic beat. Rate is under good control.) - GI/Abdominal GI/Abdominal exam: Present: soft. Absent: tenderness - Extremities Exam Extremities exam: Absent: calf tenderness, joint swelling, pedal edema, tenderness Internal Medicine: Result - Labs CBC & Chem 7: 05/04/19 05:44 05/05/19 05:23 Labs: Vancomycin trough 19 today. I discussed with pharmacy. - ABG Interpretation ABG results: PT/INR, D-dimer PT 14.8 Seconds (9.4-12.1) H 05/04/19 05:44 Consult Discharge Plan - Plan Referrals: Mike Kraus MD [Primary Care Provider] -
[2019-05-07] MEDS: Insulin DETEMIR 100 UNIT/ML X5UNITS SQ SCH (21:22)
[2019-05-08] MEDS: hydrALAZINE 25 MG TABLET PO SCH ×3 (05:17→20:54)
[2019-05-08] MEDS: Isosorbide MONOnitrate (24 HR) 30 MG TAB.ER.24H PO SCH (08:47)
[2019-05-08] MEDS: Aspirin 81 MG TAB.CHEW PO SCH (08:47)
[2019-05-08] MEDS: Lactobacillus 1 EACH CAP.SPRINK PO SCH (08:48)
[2019-05-08] MEDS: Folic Acid 1 MG TABLET PO SCH (08:48)
[2019-05-08] MEDS: Torsemide 20 MG TABLET PO SCH ×2 (08:48→17:41)
[2019-05-08] MEDS: Zinc Sulfate 220 MG CAPSULE PO SCH (08:48)
[2019-05-08] MEDS: Vitamin E 200 UNIT (90MG) CAPSULE PO SCH ×2 (08:48→20:54)
[2019-05-08] MEDS: Everolimus [Zortress] 0.5 MG PO SCH ×2 (08:48→20:55)
[2019-05-08] MEDS: FLUoxetine HCl 10 MG CAPSULE PO SCH (08:48)
[2019-05-08] MEDS: amLODIPine 5 MG TABLET PO SCH (08:48)
[2019-05-08] MEDS: Insulin LISPRO 300 UNITS/3 ML VIAL SQ SCH ×4 (08:49→20:57)
[2019-05-08] MEDS: Budesonide/Formoterol 160/4.5 1 PUFF INH IH SCH ×2 (08:49→20:55)
--- NOTE | 2019-05-08 16:05 | Internal Med Progress Note ---
Date of Encounter: 05/08/19 Time of Encounter: 16:02 - Assessment and plan (1) Physical deconditioning Current Visit: Yes Status: Acute Assessment and plan: Continues with PT and OT to try to get ADLs resumed where it is safe to be discharged to home. No cardiovascular respiratory acute changes. (2) History of bacterial endocarditis Current Visit: Yes Status: Acute Assessment and plan: No fever or chills. Lab work ordered for tomorrow. (3) Anemia Current Visit: Yes Status: Chronic Assessment and plan: Lab work ordered for tomorrow. Qualifiers: Anemia type: iron deficiency Iron deficiency anemia type: unspecified iron deficiency Qualified Code(s): D50.9 - Iron deficiency anemia, unspecified (4) CAD (coronary artery disease) of artery bypass graft Current Visit: Yes Status: Chronic Assessment and plan: No angina or CHF. Qualifiers: [place] vs. transplanted heart: [place] heart Associated angina: without angina Qualified Code(s): I25.810 - Atherosclerosis of coronary artery bypass graft(s) without angina pectoris (5) S/P kidney transplant Current Visit: Yes Status: Chronic (6) HTN (hypertension) Current Visit: Yes Status: Chronic Assessment and plan: Blood pressure under good control. Qualifiers: Hypertension type: essential hypertension Qualified Code(s): I10 - Essential (primary) hypertension (7) DM (diabetes mellitus) Current Visit: Yes Status: Chronic Assessment and plan: Sugars have been mildly elevated in has coverage. Qualifiers: Diabetes mellitus type: type 2 Diabetes mellitus vermin exterminator insulin use: with vermin exterminator use Diabetes mellitus complication status: with kidney complications Diabetes mellitus complication detail: with chronic kidney disease Chronic kidney disease stage: stage 4 (severe) Qualified Code(s): E11.22 - Type 2 diabetes mellitus with diabetic chronic kidney disease; N18.4 - Chronic kidney disease, stage 4 (severe); Z79.4 - residential (current) use of insulin (8) COPD (chronic obstructive pulmonary disease) Current Visit: Yes Status: Chronic Assessment and plan: Continues with occasional nebulizer treatment. His lungs are clear. He does have some phlegm production. No obvious signs of bacterial infection. Qualifiers: COPD type: emphysema Emphysema type: unspecified Qualified Code(s): J43.9 - Emphysema, unspecified (9) History of aortic valve replacement with bioprosthetic valve Current Visit: Yes Status: Chronic Assessment and plan: No angina or CHF. (10) CKD (chronic kidney disease) stage 4, GFR 15-29 ml/min Current Visit: Yes Status: Chronic Assessment and plan: Labwork ordered for tomorrow (11) DVT prophylaxis Current Visit: Yes Status: Acute - Subjective Interval history: Patient states that he has been coughing up some phlegm since he had his nebulizer treatment this morning. He said that when his company leaves and he stops talking so much he thinks he will be fine with his breathing. He denies any angina/chest pain or palpitations. He denies any fevers or chills. He thought he was having some pain in the right heel earlier today. He denies any bowel or bladder problems. Denies any significant localizing pain otherwise I spoke to his about their vacation plans and discharge planning. She knows that he will need to continue antibiotics for about 6 weeks, needs vancomycin and other lab work done, will have to have vancomycin dosing adjusted on an ongoing basis. She knows of a hospital within 15 minutes of their vacation site and the plan to get outpatient things done there. - Constitutional Vitals: Temp Pulse Resp BP Pulse Ox 97.6 F 75 16 134/69 95 05/08/19 08:00 05/08/19 08:00 05/08/19 08:00 05/08/19 08:00 05/08/19 08:00 General appearance: Present: A&O X 3, answers questions appropriately - Respiratory Respiratory exam: Present: CTAB. Absent: rales, respiratory distress, rhonchi, wheezes, tachypnea - Cardiovascular Cardiovascular exam: Present: RRR, +S1, +S2, systolic murmur (2/6 systolic murmur. Has occasional ectopic beat. No tachycardia.) - GI/Abdominal GI/Abdominal exam: Present: soft. Absent: tenderness - Extremities Exam Additional comments: Right heel shows the previous right lateral calcaneal scab (about 3-4 mm) area which is now moist since we have had the entire area covered. The plantar posterior heel area is soft and somewhat mushy but no skin breakdown or bruising or blister formation or tenderness. There is no edema or tenderness. Left foot shows no heel breakdown - Incison Comments: His port removal site in the right upper chest area was evaluated today. I took off a clean sterile dressing which was placed 04/28/19. He has Steri-Strips intact. I do not see any sutures. No bruising, signs of infection or tenderness. Internal Medicine: Result - Labs CBC & Chem 7: 05/04/19 05:44 05/05/19 05:23 Labs: Vancomycin level reviewed. Pharmacist is adjusting his dosing interval and amount - ABG Interpretation ABG results: PT/INR, D-dimer PT 14.8 Seconds (9.4-12.1) H 05/04/19 05:44 Consult Discharge Plan - Plan Referrals: Mike Kraus MD [Primary Care Provider] -
[2019-05-08] MEDS ORDERED: Chloraseptic Spray 177 ML BOTTLE MM PRN (20:40)
[2019-05-08] MEDS: Insulin DETEMIR 100 UNIT/ML X5UNITS SQ SCH (20:55)
[2019-05-09] MEDS: hydrALAZINE 25 MG TABLET PO SCH ×3 (05:56→20:58)
[2019-05-09 06:00] LABS: Basophils % 0.3 %; Eosinophils # 0.1 K/mcL (0.0-0.6); Eosinophils % 1.6 %; Hematocrit 18.3 % (37.5-50.1); Immature Granulocytes % 1.1 % (0-4); Lymphocytes # 0.5 K/mcL (0.6-4.6); Lymphocytes % 14.3 %; Mean Corpuscular Hemoglobin 25.1 pg (28.0-33.3); Mean Corpuscular Volume 86.7 fL (83.0-100.0); Mean Platelet Volume 11.3 fL (9.4-12.4); Monocytes # 0.6 K/mcL (0.0-1.3); Monocytes % 16.8 %; Neutrophils # 2.4 K/mcL (1.6-8.9); Platelet Count 126 K/mcL (140-400); Red Blood Count 2.11 M/mcL (4.19-5.50); Red Cell Distribution Width 19.4 % (11.5-14.5); Segmented Neutrophils % 65.9 %; White Blood Count 3.6 K/mcL (4.3-11.1)
[2019-05-09 06:03] LABS: Hemoglobin 5.3 g/dL (12.9-16.9)
[2019-05-09 06:15] LABS: Calcium 8.8 mg/dL (8.6-10.3)
[2019-05-09] MEDS ORDERED: 0.9 % Sodium Chloride 250 ML IVC SCH (06:15)
[2019-05-09 06:24] LABS: Hypochromasia Present (Not Present)
[2019-05-09] MEDS ORDERED: Vancomycin 500 MG in 0.9 % Sodium Chloride Mini Bag 100 ML IVPB ONE (09:00)
[2019-05-09] MEDS: Lactobacillus 1 EACH CAP.SPRINK PO SCH (09:13)
[2019-05-09] MEDS: Zinc Sulfate 220 MG CAPSULE PO SCH (09:13)
[2019-05-09] MEDS: Aspirin 81 MG TAB.CHEW PO SCH (09:13)
[2019-05-09] MEDS: Isosorbide MONOnitrate (24 HR) 30 MG TAB.ER.24H PO SCH (09:13)
[2019-05-09] MEDS: amLODIPine 5 MG TABLET PO SCH (09:13)
[2019-05-09] MEDS: Torsemide 20 MG TABLET PO SCH ×2 (09:13→17:20)
[2019-05-09] MEDS: Everolimus [Zortress] 0.5 MG PO SCH ×2 (09:14→20:56)
[2019-05-09] MEDS: FLUoxetine HCl 10 MG CAPSULE PO SCH (09:14)
[2019-05-09] MEDS: Folic Acid 1 MG TABLET PO SCH (09:14)
[2019-05-09] MEDS: Insulin LISPRO 300 UNITS/3 ML VIAL SQ SCH ×4 (09:17→20:52)
[2019-05-09] MEDS: Budesonide/Formoterol 160/4.5 1 PUFF INH IH SCH ×2 (09:18→20:10)
[2019-05-09] MEDS: Vitamin E 200 UNIT (90MG) CAPSULE PO SCH ×2 (09:18→20:58)
[2019-05-09] MEDS ORDERED: Epoetin Alfa 40,000 UNIT/ML VIAL SQ SCH (11:00)
--- NOTE | 2019-05-09 13:48 | Internal Med Progress Note ---
Date of Encounter: 05/09/19 Time of Encounter: 13:46 - Assessment and plan (1) Physical deconditioning Current Visit: Yes Status: Acute Assessment and plan: He will resume his therapies tomorrow after his blood transfusion and after the holiday. (2) History of bacterial endocarditis Current Visit: Yes Status: Acute Assessment and plan: No fever or chills. White blood cell count is not elevated. Continues with his vancomycin as dosed by the pharmacist (3) Anemia Current Visit: Yes Status: Chronic Assessment and plan: Chronic anemia, now acute dropped to 5.3. He is receiving his second unit of blood. Seems to be hemodynamically stable though. His Procrit was given today. Labs have been sent to [facility] today. He has been scoped many times in the past. We try to maintain his hemoglobin above 7.0 Qualifiers: Anemia type: iron deficiency Iron deficiency anemia type: unspecified iron deficiency Qualified Code(s): D50.9 - Iron deficiency anemia, unspecified (4) CAD (coronary artery disease) of artery bypass graft Current Visit: Yes Status: Chronic Assessment and plan: No angina or CHF noted. Qualifiers: [place] vs. transplanted heart: [place] heart Associated angina: without angina Qualified Code(s): I25.810 - Atherosclerosis of coronary artery bypass graft(s) without angina pectoris (5) S/P kidney transplant Current Visit: Yes Status: Chronic (6) HTN (hypertension) Current Visit: Yes Status: Chronic Assessment and plan: Blood pressure under good control. Qualifiers: Hypertension type: essential hypertension Qualified Code(s): I10 - Essential (primary) hypertension (7) DM (diabetes mellitus) Current Visit: Yes Status: Chronic Assessment and plan: Blood sugars are occasionally into the 200s, sometimes 94 though. Coverage arranged. Qualifiers: Diabetes mellitus type: type 2 Diabetes mellitus custodial insulin use: with custodial use Diabetes mellitus complication status: with kidney complications Diabetes mellitus complication detail: with chronic kidney disease Chronic kidney disease stage: stage 4 (severe) Qualified Code(s): E11.22 - Type 2 diabetes mellitus with diabetic chronic kidney disease; N18.4 - Chronic kidney disease, stage 4 (severe); Z79.4 - intermediate designer (current) use of insulin (8) COPD (chronic obstructive pulmonary disease) Current Visit: Yes Status: Chronic Qualifiers: COPD type: emphysema Emphysema type: unspecified Qualified Code(s): J43.9 - Emphysema, unspecified (9) History of aortic valve replacement with bioprosthetic valve Current Visit: Yes Status: Chronic (10) CKD (chronic kidney disease) stage 4, GFR 15-29 ml/min Current Visit: Yes Status: Chronic Assessment and plan: Creatinine improved from 3.6 to 3.3. (11) Cough Current Visit: Yes Status: Acute Assessment and plan: He now has a harsh cough that I witnessed. Lung vu appear clear or stable at his baseline. Some sputum production. No fever or chills. Chest x-ray has been ordered. Throat lozenges ordered. Throat spray has been helpful. (12) DVT prophylaxis Current Visit: Yes Status: Acute - Subjective Interval history: Patient started having sore throat and increased cough last night. He states the throat spray and cold water is helpful. We are still waiting on throat lozenges to come from [facility] in the [place]. He states that he has worsening cough and some phlegm production but he has not looked at it. States "the right lung hurts". No hemoptysis. No fever or chills. This morning during his routine blood draw his hemoglobin was found to be 5.3. He is now receiving his second unit of blood. He denied any angina. His weight did go up 9 pounds over the past few days. No lower extremity edema though. He states his abdomen is feels bigger. His stools have been dark/black, but he states that has been going on for a while. No blood per rectum. He has a history of chronic GI bleed issues, iron deficiency anemia, and has been scoped many times. He received his weekly Procrit this morning. - Constitutional Vitals: Temp Pulse Resp BP Pulse Ox 98.8 F 68 16 134/59 97 05/09/19 13:39 05/09/19 13:39 05/09/19 13:39 05/09/19 13:39 05/09/19 11:14 General appearance: Present: A&O X 3, answers questions appropriately - ENT Additional comments: Oral examination is negative. No significant redness or exudate. - Respiratory Additional comments: Slightly decreased breath sounds in the left base compared to the right which is chronic. No crackles. No wheezes. No rhonchi. No respiratory distress. - Cardiovascular Cardiovascular exam: Present: RRR, +S1, +S2, systolic murmur (2/6 systolic murm ur. Occasional ectopic beat is heard.) - GI/Abdominal Additional comments: On early obese. It is not tight. No localized tenderness. Renal transplant palpable in the right lower quadrant. - Extremities Exam Extremities exam: Absent: calf tenderness, pedal edema Internal Medicine: Result - Labs CBC & Chem 7: 05/09/19 05:55 05/09/19 05:55 Labs: Short CBC 05/09/19 Range/Units 05:55 WBC 3.6 L (4.3-11.1) K/mcL Hgb 5.3 L* D (12.9-16.9) g/dL Hct 18.3 L (37.5-50.1) % Plt Count 126 L (140-400) K/mcL Neutrophils # 2.4 (1.6-8.9) K/mcL BMP 05/09/19 05:55 Sodium 143 Potassium 4.0 Chloride 107 Carbon Dioxide 25 BUN 122 H Creatinine 3.31 H Glucose 152 H Calcium 8.8 Labs have been reviewed. Significant drop in hemoglobin. Creatinine better at 3.3 - ABG Interpretation ABG results: PT/INR, D-dimer PT 14.8 Seconds (9.4-12.1) H 05/04/19 05:44 Consult Discharge Plan - Plan Referrals: Mike Kraus MD [Primary Care Provider] -
[2019-05-09] MEDS ORDERED: Furosemide 40 MG/4 ML VIAL IVP ONE (17:42)
--- NOTE | 2019-05-09 19:22 | Event Note ---
Date of Encounter: 05/09/19 Time of Encounter: 19:22 Patient had developed a cough. Lung findings on auscultation showed decreased breath sounds in left base which is chronic from his pleural effusion. The right lung vu were clear. However chest x-ray shows possible pulmonary vascular congestion versus an infiltrate such as pneumonia. His weight did go up about 9 pounds from a few days ago. He has no fever. White blood cell count is normal. We will give him additional diuresis. He is currently getting blood transfusion. Consideration for treatment for pneumonia depending on clinical findings and follow-up chest x-ray.
[2019-05-09] MEDS: Insulin DETEMIR 100 UNIT/ML X5UNITS SQ SCH (20:59)
[2019-05-09] MEDS: Albuterol 2.5 MG/3 ML NEBULIZER IH PRN (22:17)
[2019-05-10] MEDS ORDERED: Ondansetron ODT 4 MG TAB.RAPDIS SL PRN (02:13)
[2019-05-10] MEDS: hydrALAZINE 25 MG TABLET PO SCH ×2 (05:34→14:35)
[2019-05-10 05:57] LABS: Basophils % 0.3 %; Eosinophils % 0.1 %; Hematocrit 26.8 % (37.5-50.1); Lymphocytes # 0.4 K/mcL (0.6-4.6); Lymphocytes % 4.9 %; Mean Corpuscular HGB Conc 29.9 g/dL (31.6-35.5); Mean Corpuscular Hemoglobin 26.4 pg (28.0-33.3); Mean Corpuscular Volume 88.4 fL (83.0-100.0); Monocytes % 13.6 %; Neutrophils # 5.8 K/mcL (1.6-8.9); Nucleated Red Blood Cells 0.3 /100 WBC (0); Platelet Count 149 K/mcL (140-400); Red Blood Count 3.03 M/mcL (4.19-5.50); Red Cell Distribution Width 17.9 % (11.5-14.5); Segmented Neutrophils % 80.1 %
[2019-05-10 05:58] LABS: White Blood Count 7.2 K/mcL (4.3-11.1)
[2019-05-10 06:11] LABS: Potassium 4.2 mEq/L (3.5-5.1)
--- NOTE | 2019-05-10 06:58 | Internal Med Progress Note ---
Date of Encounter: 05/10/19 Time of Encounter: 06:55 - Assessment and plan (1) Physical deconditioning Current Visit: Yes Status: Acute Assessment and plan: Likely he will be too weak for therapy today. We will reassess later. (2) History of bacterial endocarditis Current Visit: Yes Status: Acute Assessment and plan: Continues with his vancomycin and dosing is adjusted by pharmacy. No fevers, chills, leukocytosis (3) Anemia Current Visit: Yes Status: Chronic Assessment and plan: He has chronic anemia, and yesterday he had to receive a total of 3 units to get his hemoglobin up to 8.0 today. No obvious active hemorrhage noted. We will continue to follow. Qualifiers: Anemia type: iron deficiency Iron deficiency anemia type: unspecified iron deficiency Qualified Code(s): D50.9 - Iron deficiency anemia, unspecified (4) CAD (coronary artery disease) of artery bypass graft Current Visit: Yes Status: Chronic Assessment and plan: No angina. No peripheral edema or crackles on lung findings but his weight has gone up and has possible increased pulmonary vasculature on chest x-ray. Follow-up ordered. Weight pending for today Qualifiers: [place] vs. transplanted heart: [place] heart Associated angina: without angina Qualified Code(s): I25.810 - Atherosclerosis of coronary artery bypass graft(s) without angina pectoris (5) S/P kidney transplant Current Visit: Yes Status: Chronic Assessment and plan: Creatinine stable at 3.35 (6) HTN (hypertension) Current Visit: Yes Status: Chronic Assessment and plan: Blood pressure is under good control. Qualifiers: Hypertension type: essential hypertension Qualified Code(s): I10 - Essential (primary) hypertension (7) DM (diabetes mellitus) Current Visit: Yes Status: Chronic Qualifiers: Diabetes mellitus type: type 2 Diabetes mellitus watermelon inspector insulin use: with watermelon inspector use Diabetes mellitus complication status: with kidney complications Diabetes mellitus complication detail: with chronic kidney disease Chronic kidney disease stage: stage 4 (severe) Qualified Code(s): E11.22 - Type 2 diabetes mellitus with diabetic chronic kidney disease; N18.4 - Chronic kidney disease, stage 4 (severe); Z79.4 - [facility] (current) use of insulin (8) COPD (chronic obstructive pulmonary disease) Current Visit: Yes Status: Chronic Assessment and plan: He has had cough and congestion and some sputum production. Consideration for pneumonia versus pulmonary vascular congestion on chest x-ray. Follow-up chest x-ray ordered. Weight today is pending. Qualifiers: COPD type: emphysema Emphysema type: unspecified Qualified Code(s): J43.9 - Emphysema, unspecified (9) History of aortic valve replacement with bioprosthetic valve Current Visit: Yes Status: Chronic (10) CKD (chronic kidney disease) stage 4, GFR 15-29 ml/min Current Visit: Yes Status: Chronic Assessment and plan: Creatinine stable at 3.35 today (11) Cough Current Visit: Yes Status: Acute Assessment and plan: He has continued cough. Chest x-ray shows either infiltrate or increased pulmonary vasculature. Follow-up x-ray has been arranged. White blood cell count is normal. No fever. We will consult with infectious disease after morning x-ray back. Continues with vancomycin for his endocarditis (12) DVT prophylaxis Current Visit: Yes Status: Acute - Subjective Interval history: Patient states that he does not feel well enough to do therapies today. He vomited once in the night. He still has pain in his chest when he takes a deep breath. Still has some sputum production. No fevers or chills. No abdominal pain. No cardiac symptoms. - Constitutional Vitals: Temp Pulse Resp BP Pulse Ox 97.7 F 79 16 107/56 95 05/10/19 00:46 05/10/19 05:33 05/10/19 00:46 05/10/19 05:33 05/10/19 00:46 General appearance: Present: A&O X 3, answers questions appropriately Exam: Patient does not look as perky as usual, but it is early in the morning - Respiratory Additional comments: Patient has slightly diminished breath sounds in the left base which is chronic. There is no wheezing or rhonchi or crackles heard. No respiratory distress. No orthopnea. Oxygen saturation is in the mid 90s. - Cardiovascular Cardiovascular exam: Present: RRR, +S1, +S2, systolic murmur (2/6 systolic murmur, slightly high-pitched.) - GI/Abdominal GI/Abdominal exam: Present: soft. Absent: tenderness - Extremities Exam Extremities exam: Absent: calf tenderness, pedal edema Additional comments: His feet are in large pillow heel protectors Internal Medicine: Result - Labs CBC & Chem 7: 05/10/19 05:25 05/10/19 05:25 Labs: Short CBC 05/09/19 05/10/19 Range/Units 18:41 05:25 WBC 7.2 D (4.3-11.1) K/mcL Hgb 6.8 L D 8.0 L (12.9-16.9) g/dL Hct 26.8 L (37.5-50.1) % Plt Count 149 (140-400) K/mcL Neutrophils # 5.8 (1.6-8.9) K/mcL BMP 05/10/19 05:25 Sodium 143 Potassium 4.2 Chloride 108 H Carbon Dioxide 26 BUN 113 H Creatinine 3.35 H Glucose 183 H Calcium 9.0 After 3 units of blood his hemoglobin is now up to 8.0. White blood cell count is normal. Creatinine stable at 3.3. - ABG Interpretation ABG results: PT/INR, D-dimer PT 14.8 Seconds (9.4-12.1) H 05/04/19 05:44 - Impressions Impressions Chest X-Ray 05/09/19 13:43 IMPRESSION: Patchy bilateral airspace disease, pneumonia versus edema. [id number] left pleural effusion. Cardiac silhouette enlargement. Right PICC in place. The tip is at the cavoatrial junction. D/ / 05/09/2019 16:24:26 Steve Álvarez MD / suresh Interpreting Provider: Steve Álvarez MD Consult Discharge Plan - Plan Referrals: Mike Kraus MD [Primary Care Provider] -
[2019-05-10] MEDS: Insulin LISPRO 300 UNITS/3 ML VIAL SQ SCH ×2 (09:02→12:44)
[2019-05-10] MEDS: Budesonide/Formoterol 160/4.5 1 PUFF INH IH SCH (09:12)
[2019-05-10 10:26] LABS: ABG Base Excess -2 mEq/L (-2 to 3); ABG HCO3 25 mEq/L (21-27); ABG Oxygen Saturation 82 % (95-98); ABG PCO2 50 mmHg (35-45); ABG PO2 52 mmHg (85-104); ABG TCO2 26 mEq/L (20-26)
[2019-05-10] MEDS: Torsemide 20 MG TABLET PO SCH (10:38)
[2019-05-10] MEDS: Zinc Sulfate 220 MG CAPSULE PO SCH (10:38)
[2019-05-10] MEDS: Everolimus [Zortress] 0.5 MG PO SCH (10:38)
[2019-05-10] MEDS: Isosorbide MONOnitrate (24 HR) 30 MG TAB.ER.24H PO SCH (10:38)
[2019-05-10] MEDS: Vitamin E 200 UNIT (90MG) CAPSULE PO SCH (10:39)
[2019-05-10] MEDS: Aspirin 81 MG TAB.CHEW PO SCH (10:39)
[2019-05-10] MEDS: FLUoxetine HCl 10 MG CAPSULE PO SCH (10:39)
[2019-05-10] MEDS: Folic Acid 1 MG TABLET PO SCH (10:39)
[2019-05-10] MEDS: Lactobacillus 1 EACH CAP.SPRINK PO SCH (10:39)
[2019-05-10] MEDS: amLODIPine 5 MG TABLET PO SCH (10:40)
[2019-05-10] MEDS ORDERED: Albuterol 2.5 MG/3 ML NEBULIZER IH PRN (11:54)
[2019-05-10 13:16] VITALS: BP 120/52
--- NOTE | 2019-05-10 15:47 | Event Note ---
Date of Encounter: 05/10/19 Time of Encounter: 15:45 Within 3 hours of my evaluation of him early this morning he was more difficult to arouse, not acting himself, was weaker than he had been earlier in the morning. It was reported that he intermittently he had crackles heard throughout his lung vu which was a new finding. His chest x-ray showed small bilateral pleural effusions and continued interstitial changes that were stable. I asked the hospitalist nurse practitioner to help evaluate the patient in my absence. It was decided that we will transfer him back to [facility] because of his rather tenuous condition regarding CHF versus pneumonia in addition to his severe chronic kidney disease, valvular lesion with endocarditis, chronic hypoxia etc. Arrangements were made for transport.
--- NOTE | 2019-05-10 15:51 | Discharge Summary ---
- NOTES TO OUTPATIENT PROVIDER Notes to Outpatient Provider: #1. Patient is being transferred back to [facility] because of a decline in his pulmonary status. Pneumonia versus acute CHF on chronic CHF is considered. He has severe chronic kidney disease, valvular disease with endocarditis, chronic hypoxia. Blood cultures were obtained. Orders not resulted at time of discharge: Pending orders 05/10/19 10:29 Culture,Blood [BC] Stat Date of Encounter: 05/10/19 Time of Encounter: 15:48 - Discharge Diagnosis (1) Acute and chronic respiratory failure Priority: Primary Status: Acute Comments: Today patient has developed acute respiratory symptoms suggestive of acute CHF on chronic CHF versus pneumonia. Given his chronic COPD, chronic valvular dis ease and endocarditis being treated with vancomycin, severe CKD and S/P renal transplant history it is been recommended that he be returned to [facility] for a higher level of care. The hospitalist SUSAN has contacted [facility] and made the arrangements in my absence. Qualifiers: Respiratory failure complication: hypoxia and hypercapnia Qualified Code(s): J96.21 - Acute and chronic respiratory failure with hypoxia; J96.22 - Acute and chronic respiratory failure with hypercapnia (2) Physical deconditioning Priority: Secondary Status: Acute Comments: he was admitted to our physical rehabilitation unit due to deconditioning from his COPD, CKD, endocarditis being treated with vancomycin. He had PT and OT, but is now too ill to participate and is being transferred back to [facility]. 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 He has had full upper and lower endoscopies fairly recently. During this hospital stay, in the past 24 hours he has received 3 units of blood bringing his hemoglobin from 5.3 up to 8.0. During that time he remained hemodynamically stable. No obvious estrella bleeding. He continues with his Procrit injection weekly Qualifiers: Anemia type: iron deficiency Iron deficiency anemia type: unspecified iron deficiency Qualified Code(s): D50.9 - Iron deficiency anemia, unspecified (5) CAD (coronary artery disease) of artery bypass graft Priority: Secondary Status: Chronic Comments: Patient is a history long-standing CAD and CABG. No angina noted. He may indeed have acute congestive heart failure on chronic CHF. He will be transferred to a higher level of care. Qualifiers: [place] vs. transplanted heart: [place] heart Associated angina: without angina Qualified Code(s): I25.810 - Atherosclerosis of coronary artery bypass graft(s) without angina pectoris (6) S/P kidney transplant Priority: Secondary Status: Chronic (7) HTN (hypertension) Priority: Secondary Status: Chronic Comments: His blood pressures have remained stable and normal during this hospital stay. Qualifiers: Hypertension type: essential hypertension Qualified Code(s): I10 - Essential (primary) hypertension (8) DM (diabetes mellitus) Priority: Secondary Status: Chronic Comments: Intermittently he had sugars over 200, treated with sliding scale insulin Qualifiers: Diabetes mellitus type: type 2 Diabetes mellitus long-term insulin use: with long-term use Diabetes mellitus complication status: with kidney complications Diabetes mellitus complication detail: with chronic kidney disease Chronic kidney disease stage: stage 4 (severe) Qualified Code(s): E11.22 - Type 2 diabetes mellitus with diabetic chronic kidney disease; N18.4 - Chronic kidney disease, stage 4 (severe); Z79.4 - remote computer terminal operator (current) use of insulin (9) COPD (chronic obstructive pulmonary disease) Priority: Secondary Status: Chronic Comments: Patient has chronic COPD and is oxygen dependent. Late this morning he had decompensated from a respiratory point of view. CHF versus pneumonia likely. He will be transferred to a higher level of care. Qualifiers: COPD type: emphysema Emphysema type: unspecified Qualified Code(s): J43.9 - Emphysema, unspecified (10) History of aortic valve replacement with bioprosthetic valve Priority: Secondary Status: Chronic (11) CKD (chronic kidney disease) stage 4, GFR 15-29 ml/min Priority: Secondary Status: Chronic Comments: His creatinine improved from 3.6-3.3 range. This is his "new normal". He sees nephrology at [facility] as well as [facility] (12) Cough Priority: Secondary Status: Acute Comments: Patient developed a cough over the past 24 hours or so. Lung findings were stable this morning, apparently worsened a few hours later. Congestive heart failure versus pneumonia in the differential diagnosis. Due to his tenuous renal, pulmonary, cardiac situations he will be transferred to a higher level care for further evaluation and treatment (13) DVT prophylaxis Priority: Secondary Status: Acute Comments: Due to his chronic anemia, acute need for blood transfusion and history of previous GI blood loss he was not placed on Lovenox. He was to wear elastic stockings and he has been ambulatory until today. There are no signs of DVT. Hospital course: Mr. Soriano is a 74 year old male with multiple medical problems including COPD, anemia, chronic heart disease and CAD, new valvular lesion consistent with endocarditis, severe chronic CKD was admitted to our rehabilitation unit for PT and OT and continuation of his vancomycin before returning to home. Diagnoses above. Patient decompensated today and will be transferred back to [facility] for higher level of care. - Time Spent with Patient Total time spent providing and/or coordinating discharge services: - Discharge Medications Prescriptions: No Action Acetaminophen [Tylenol] 325 mg PO Q4HR PRN PRN Reason: Pain Saccharomyces Boulardii [Probiotic] 250 mg PO DAILY Tamsulosin [Flomax] 0.4 mg PO DAILY FLUoxetine HCl [Prozac] 10 mg PO DAILY Carvedilol [Coreg] 50 mg PO BID Everolimus [Zortress] 1 mg PO BID Insulin Glargine [Lantus] 15 - 20 unit SQ DAILY Insulin ASPART [Novolog Flexpen] 100 unit SQ QID PRN PRN Reason: Blood Sugar - High Calcitriol [Rocaltrol] 0.5 mcg PO DAILY Polyethylene Glycol 3350 [MiraLAX Powder Bulk 17.9 Oz] 1 scoop PO DAILY Budesonide/Formoterol 160/4.5 [Symbicort 160/4.5] 2 puff IH BIDR Cholecalciferol (Vitamin D3) [Vitamin D3] 1,000 unit PO DAILY Folic Acid 400 mcg PO DAILY Albuterol Neb [AccuNeb] 1.25 mg IH Q4HR PRN PRN Reason: Dyspnea hydrALAZINE [HydrALAZINE] 75 mg PO Q8HR Isosorbide MONOnitrate (24 HR) [Imdur] 30 mg PO DAILY Vitamin E (Dl,Tocopheryl Acet) [Vitamin E] 400 unit PO BID Torsemide [Demadex] 40 mg PO TID #90 tablet Epoetin Abundio [Procrit] 30,000 unit SQ QWEEK Octreotide [SandoSTATIN] 100 mcg SQ BID Aspirin Enteric Coated [Aspirin EC] 81 mg PO DAILY Home Medications: Acetaminophen [Tylenol] 325 mg PO Q4HR PRN 05/22/15 [History] Saccharomyces Boulardii [Probiotic] 250 mg PO DAILY 05/22/15 [History] Tamsulosin [Flomax] 0.4 mg PO DAILY 05/22/15 [History] Carvedilol [Coreg] 50 mg PO BID 04/18/16 [History] Everolimus [Zortress] 1 mg PO BID 04/18/16 [History] FLUoxetine HCl [Prozac] 10 mg PO DAILY 04/18/16 [History] Calcitriol [Rocaltrol] 0.5 mcg PO DAILY 11/04/16 [History] Insulin ASPART [Novolog Flexpen] 100 unit SQ QID PRN 11/04/16 [History] Insulin Glargine [Lantus] 15 - 20 unit SQ DAILY 11/04/16 [History] Budesonide/Formoterol 160/4.5 [Symbicort 160/4.5] 2 puff IH BIDR 04/27/17 [History] Cholecalciferol (Vitamin D3) [Vitamin D3] 1,000 unit PO DAILY 04/27/17 [History] Albuterol Neb [AccuNeb] 1.25 mg IH Q4HR PRN 04/04/18 [History] Folic Acid 400 mcg PO DAILY 04/04/18 [History] Isosorbide MONOnitrate (24 HR) [Imdur] 30 mg PO DAILY 04/04/18 [History] Vitamin E (Dl,Tocopheryl Acet) [Vitamin E] 400 unit PO BID 04/04/18 [History] hydrALAZINE [HydrALAZINE] 75 mg PO Q8HR 04/04/18 [History] Torsemide [Demadex] 40 mg PO TID #90 tablet 04/13/18 [Rx] Polyethylene Glycol 3350 [MiraLAX Powder Bulk 17.9 Oz] 1 scoop PO DAILY 04/27/18 [History] Epoetin Abundio [Procrit] 30,000 unit SQ QWEEK 05/03/19 [History] Aspirin Enteric Coated [Aspirin EC] 81 mg PO DAILY 05/04/19 [History] Octreotide [SandoSTATIN] 100 mcg SQ BID 05/04/19 [History] Allergies/Adverse Reactions: Allergy/AdvReac Type Severity Reaction Status Date / Time levofloxacin [From Levaquin] AdvReac Severe Nausea Verified 03/14/19 13:30 [id number] Reductase AdvReac Weakness Verified 03/14/19 13:30 Inhibitor [Statins] Date of admission: 05/03/19 19:19 Primary care physician: Mike Kraus MD Consults: 05/03/19 23:39 Consult to Occupational Therapy [CONS] Routine Comment: Evaluate, develop and implement POC Reason for Consult: weakness s/p yonatan, port infection Does patient have active BEDREST order?: No Is patient medically & hemodynamically stable?: Yes Patient assessed for mobility or mobilized this visit?: Yes Consult to Physical Therapy [CONS] Routine Comment: Evaluate, develop and implement POC Reason for Consult: WEAKNESS S/P yonatan, port infection. Does patient have active BEDREST order?: No Is patient medically & hemodynamically stable?: Yes Patient assessed for mobility or mobilized this visit?: Yes Consult to Recreational Therapy [CONS] Routine Comment: Evaluate, develop and implement POC Consult to Staffing Consultant [CONS] Routine Reason for SW Consult: D/C PLANNING 05/03/19 23:52 Consult to Physical Medicine/Rehab [CONS] Routine Reason for Consult: weakness s/p yonatan and port infection and subsequent removal. Call Completed: Yes Discharging clinician: Mike Kraus Anticipated date of discharge: 05/10/19 - Constitutional Vitals: Temp Pulse Resp BP Pulse Ox 98.6 F 74 18 120/52 92 05/10/19 11:30 05/10/19 11:30 05/10/19 11:38 05/10/19 11:30 05/10/19 11:38 General appearance: Present: A&O X 3, answers questions appropriately Exam: My examination was documented earlier in a progress note - Patient Status Disposition: Transfer Other Condition: Fair Functional capacity at discharge: uses cane/walker Overall status at discharge: patient is not back to baseline - Discharge Instructions Follow Up With: Mike Kraus MD [Primary Care Provider] - - Diet and Activity Activity: as per physical therapy, wear oxygen at all times Diet: low salt diet
[2019-05-10] MEDS ORDERED: Aminoglycoside Consult 1 EACH MC ONE (16:50)
== END 2019-05-10 16:51 | disposition other institution (70) | DRG 288 ==
LOC: INPGRE 05-03 19:19
PROVIDERS: ADMIT Family Medicine; ATTEND Family Medicine

== ENCOUNTER 2019-05-23 15:10 | Inpatient (IN) ==
[2019-05-24] MEDS ORDERED: Dextrose Gel 15 GM/37.5 ML TUBE PO PRN ×2 (15:43)
[2019-05-24] MEDS ORDERED: D5% in Water 1,000 ML IVC PRN (15:43)
[2019-05-24] MEDS ORDERED: Albuterol Neb 1.25 MG/3 ML VIAL IH PRN (15:48)
[2019-05-24] MEDS: Ipratropium/Albuterol Neb 3 ML IH SCH (18:01)
[2019-05-24] MEDS: hydrALAZINE 25 MG TABLET PO SCH (18:01)
[2019-05-24] MEDS: Insulin LISPRO 300 UNITS/3 ML VIAL SQ SCH ×2 (18:01→21:00)
[2019-05-24] MEDS ORDERED: Vancomycin 500 MG in 0.9 % Sodium Chloride Mini Bag 100 ML IVPB ONE (18:30)
[2019-05-24] MEDS: Vitamin E 200 UNIT (90MG) CAPSULE PO SCH (20:53)
[2019-05-24] MEDS: Torsemide 20 MG TABLET PO SCH (20:53)
[2019-05-24] MEDS ORDERED: EVEROLIMUS 1 MG PO SCH (21:00)
[2019-05-24] MEDS: EVEROLIMUS PO SCH (21:02)
[2019-05-25] MEDS: hydrALAZINE 25 MG TABLET PO SCH ×4 (00:24→23:11)
[2019-05-25] MEDS: Budesonide/Formoterol 160/4.5 1 PUFF INH IH SCH ×3 (00:26→20:02)
[2019-05-25] MEDS: Ipratropium/Albuterol Neb 3 ML IH SCH ×5 (00:26→22:18)
[2019-05-25] MEDS: FLUoxetine HCl 10 MG CAPSULE PO SCH (07:33)
[2019-05-25] MEDS: Zinc Sulfate 220 MG CAPSULE PO SCH (07:34)
[2019-05-25] MEDS: Isosorbide MONOnitrate (24 HR) 30 MG TAB.ER.24H PO SCH (07:34)
[2019-05-25] MEDS: Torsemide 20 MG TABLET PO SCH ×3 (07:34→23:11)
[2019-05-25] MEDS: Vitamin E 200 UNIT (90MG) CAPSULE PO SCH ×2 (07:34→23:10)
[2019-05-25] MEDS: Cholecalciferol (D-3) 1,000 UNIT (25MCG) TABLET PO SCH (07:34)
[2019-05-25] MEDS: predniSONE 20 MG TABLET PO SCH (07:35)
[2019-05-25] MEDS: EVEROLIMUS PO SCH ×2 (07:35→23:12)
[2019-05-25] MEDS: Fluticasone Propionate Nasal 50 MCG/SPRAY BOTTLE NS SCH (07:36)
[2019-05-25] MEDS: Insulin LISPRO 300 UNITS/3 ML VIAL SQ SCH ×4 (07:43→22:34)
[2019-05-25] MEDS: Insulin DETEMIR 100 UNIT/ML X5UNITS SQ SCH (07:44)
--- NOTE | 2019-05-25 07:59 | Internal Med History&Physical ---
Date of Encounter: 05/25/19 Time of Encounter: 07:57 Assessment and Plan (1) Physical deconditioning Current visit: Yes Status: Acute Patient is here to have therapy in addition to his vancomycin dosing. He will be evaluated by PT and OT. The goal is to have him resume his functional ADLs to be able to return to his home. (2) History of bacterial endocarditis Current visit: Yes Status: Acute Patient is to continue his vancomycin for bacterial endocarditis. Dosing will be arranged by pharmacy. (3) S/P kidney transplant Current visit: Yes Status: Chronic Previous renal transplant for chronic kidney failure. Followed by renal at [facility] as well as at [facility]. His renal function has worsened over the past few months and his "new normal" creatinine is in 3-4 range. (4) Anemia Current visit: Yes Status: Chronic Chronic anemia of multiple etiology including AV malformations, chronic kidney disease and chronic disease. He received blood transfusion at [facility]. Currently his count is stable and will be followed. Qualifiers: Anemia type: iron deficiency Iron deficiency anemia type: unspecified iron deficiency Qualified Code(s): D50.9 - Iron deficiency anemia, unspecified (5) Acute on chronic diastolic CHF (congestive heart failure) Current visit: Yes Status: Chronic He has known systolic as well as diastolic CHF. Currently he seems to be stable but does have edema of lower extremities. Respiratory status is stable. Continue same medications. (6) HTN (hypertension) Current visit: Yes Status: Chronic Blood pressure is under good control. No change in medications for now. Qualifiers: Hypertension type: essential hypertension Qualified Code(s): I10 - Essential (primary) hypertension (7) History of aortic valve replacement with bioprosthetic valve Current visit: No Status: Chronic Status post aortic valve replacement and not having any current acute congestive heart failure or angina. (8) CKD (chronic kidney disease) stage 4, GFR 15-29 ml/min Current visit: Yes Status: Chronic Known chronic kidney disease as above. His "new normal" creatinine is in the 3- 4 range now. Followed by [facility] nephrology as well as [facility]. (9) DM type 2 (diabetes mellitus, type 2) Current visit: Yes Status: Chronic His sugars have been elevated because of steroids that were initiated at [facility]. He is on a taper of prednisone. He has long-acting insulin as well as coverage Qualifiers: Diabetes mellitus mcc insulin use: with mcc use Diabetes mellitus complication status: with hyperglycemia Qualified Code(s): E11.65 - Type 2 diabetes mellitus with hyperglycemia; Z79.4 - senior care (current) use of insulin (10) Acute kidney injury superimposed on CKD Current visit: Yes Status: Acute His creatinine has bumped up to the 4 range. He will have gentle IV fluids until we see how well he eats (11) Acute and chronic respiratory failure Current visit: Yes Status: Chronic Previous rehab stay was complicated with acute on chronic respiratory failure and this necessitated a trip to [facility]. They gave him antibiotics and steroids and he improved. Qualifiers: Respiratory failure complication: hypoxia and hypercapnia Qualified Code(s): J96.21 - Acute and chronic respiratory failure with hypoxia; J96.22 - Acute and chronic respiratory failure with hypercapnia (12) Thrombocytopenia Current visit: Yes Status: Acute Thrombocytopenia when at [facility]. Hematology did not feel this was needing further intervention. It may be from his transplant medication. No active bleeding. (13) DVT prophylaxis Current visit: Yes Status: Acute Due to his recurring anemia problems and blood transfusions, low platelet count and other medical issues he is not to be on pharmacological DVT prophylaxis. He will have frequent ambulation. Currently he has too much swelling for VIC william. Internal Medicine - H&P: HPI Chief complaint: I am here for my physical therapy Admitted From: Hospital to Hospital Transfer Plans for Post Hospital Care: Home History of present illness: Mr. Soriano is a 74 year old male with known history of previous renal transplant 2012, CAD and CABG, systolic/diastolic CHF with EF 41%, acute endocarditis with two vegetations on the mitral valve, status post AV bioprosthesis 2011, COPD, ALEXIA, type 2 diabetes mellitus, hypertension, acute on chronic respiratory failure,thrombocytopenia, anemia and multiple other medical problems. He was previously at our facility for deconditioning and intravenous vancomycin for his endocarditis. He slipped into acute on chronic respiratory failure, decreased responsiveness, hypercapnia and was transferred back to [facility]. He was treated for the acute respiratory failure, was placed on prednisone, nebulizer treatments, doxycycline, treated for subsequent fluid overload with intravenous Lasix. He had acute kidney injury on chronic kidney disease with his creatinine peaking at 4.27. They felt SAMEER was secondary to intravascular depletion or possibly from the vancomycin. He also had an episode of asymptomatic atrial fibrillation/flutter that was short-lived. Cardiology felt he was not a candidate for anticoagulation because of his ongoing anemia issues. They thought he was back to his baseline of COPD and renal failure. He was no vic to have thrombocytopenia, they did not feel that it was needing further evaluation. He thought it might be from side effect of some of his medications and to be followed. He was transferred to our facility for ongoing vancomycin for bacterial endocarditis, restarting therapies for deconditioning, monitoring his renal failure etc. Patient states that he is feeling better. He denies any acute cardiac symptoms. He thinks his breathing is back to its baseline. He does not have much of an appetite but does enjoy the protein supplement drinks that he was receiving at [facility]. He is able to ambulate with a walker and assistance to the dining room Past Med Surg Social Fam HX - Past Medical History Medical history: arthritis, cardiomyopathy (Systolic and diastolic congestive heart failure with EF 41%), CHF, COPD, coronary artery disease (CAD and status post CABG), diabetes, dialysis, GERD, GI bleed (AV malformations), hyper lipidemia, hypertension, peripheral artery disease, renal disease (History of previous renal transplant 2012. History of acute on chronic kidney disease.), valvular heart disease Additional medical history: kidney transplant Psychiatric history: depression - Past Surgical History Surgical History: coronary bypass (CABG), heart valve replacement, transplant, other Additional surgical history: PIG VALVE AORTIC VALVE REPLACEMENT - Social History Smoking Status: Former smoker Smokeless Tobacco Status: No Alcohol use: none Drug use: none Occupational status: retired Current living situation: Home, With Family Activity Level: Uses cane/walker Recent Out of Country Travel Within the Last 8 Weeks: No Exposure or Possible Exposure to Illness During Travel: No - Family History Mother Adopted: No Family Member Ethnicity: Non- Living Status: Hx Family Cardiac Disorders: No Hx Family Respiratory Disorders: No Hx Family Cancer: No Hx Family GI Disorders: Yes (Cholecycstectomy) Hx Family Endocrine Disorder: No Hx Family Neuromuscular Disorders: No Hx Family Neurologic Disorders: No Hx Family HEENT Disorders: No Hx Family Autoimmune Disorders: No Father Living Status: Sister Living Status: Still Living Internal Medicine - H&P: Meds Tamsulosin [Flomax] 0.4 mg PO DAILY 05/22/15 [History] Carvedilol [Coreg] 50 mg PO BID 04/18/16 [History] Everolimus [Zortress] 1 mg PO BID 04/18/16 [History] FLUoxetine HCl [Prozac] 10 mg PO DAILY 04/18/16 [History] Calcitriol [Rocaltrol] 0.5 mcg PO DAILY 11/04/16 [History] Insulin ASPART [Novolog Flexpen] 100 unit SQ QID PRN 11/04/16 [History] Insulin Glargine [Lantus] 15 unit SQ DAILY 11/04/16 [History] Budesonide/Formoterol 160/4.5 [Symbicort 160/4.5] 2 puff IH BIDR 04/27/17 [History] Cholecalciferol (Vitamin D3) [Vitamin D3] 1,000 unit PO DAILY 04/27/17 [History] Albuterol Neb [AccuNeb] 1.25 mg IH Q4HR PRN 04/04/18 [History] Isosorbide MONOnitrate (24 HR) [Imdur] 30 mg PO DAILY 04/04/18 [History] Vitamin E (Dl,Tocopheryl Acet) [Vitamin E] 400 unit PO BID 04/04/18 [History] hydrALAZINE [HydrALAZINE] 75 mg PO Q8HR 04/04/18 [History] Torsemide [Demadex] 40 mg PO TID #90 tablet 04/13/18 [Rx] Polyethylene Glycol 3350 [MiraLAX Powder Bulk 17.9 Oz] 1 scoop PO DAILY 04/27/18 [History] Octreotide [SandoSTATIN] 100 mcg SQ BID 05/04/19 [History] Fluticasone Propionate Nasal [Flonase] 2 spray NS DAILY 05/24/19 [History] Sevelamer [Renvela] 1,600 mg PO TIDWM 05/24/19 [History] Zinc Sulfate 220 mg PO DAILY 05/24/19 [History] Allergy/AdvReac Type Severity Reaction Status Date / Time levofloxacin [From [facility]] AdvReac Severe Nausea Verified 03/14/19 13:30 Oweflif-Mdb-Cos Reductase AdvReac Weakness Verified 03/14/19 13:30 Inhibitor [Statins] - Constitutional Constitutional: anorexia, malaise, weight gain (States he was about 20 pounds over his baseline at home.), no fever(s), no falls, no night sweats - EENT Additional comments: Decreased vision of left eye chronically with deviation laterally Ears: decreased hearing (Chronic difficulties with hearing, he is not wearing hi s hearing aids.) Nose, mouth and throat: no sinus pain, no sore throat Additional comments: Chronically he has a couple "blood blisters" on his tongue. - Cardiovascular Cardiovascular ROS IM: dyspnea, dyspnea on exertion, edema, no chest pain, no diaphoresis, no irregular heart rhythm, no palpitations, no syncope - Respiratory Respiratory: cough (Loose rattly cough with very little sputum production), dyspnea, dyspnea on exertion, wheezing, no hemoptysis, no pain on inspiration, no change in phlegm color - Gastrointestinal Gastrointestinal: no abdominal pain, no change in stool character, no constipation, no diarrhea, no hematemesis, no melena (But he does have dark stools chronically from iron) - Genitourinary Genitourinary ROS male: no difficulty urinating, no dysuria - Musculoskeletal Musculoskeletal ROS IM: muscle weakness (Generalized weakness but nothing localizing) - Integumentary Integumentary IM: no rash - Neurological Neurological ROS: weakness (Generalized weakness but not localizing), no confusion, no dizziness, no focal weakness, no tremor(s) - Psychiatric Psychiatric: depression (Chronically he has had depression, his SSRI has been helpful) - Constitutional Vitals: Temp Pulse Resp BP Pulse Ox 97.5 F L 62 14 129/63 96 05/25/19 03:54 05/25/19 03:54 05/25/19 05:35 05/25/19 03:54 05/25/19 05:35 General appearance: Present: A&O X 3, no acute distress, answers questions appropriately Exam: He has occasional harsh loose cough. No respiratory distress - Head Head exam: Present: atraumatic - Eye Additional comments: Left eye deviates laterally - ENT ENT exam: Present: TM's normal bilaterally (He is hard of hearing eye laterally and no hearing aids present) Additional comments: He has 2 small blood blisters on his tongue. Has a set of dentures. Posterior pharynx is negative for acute changes. Mucous membranes are moist - Neck Neck exam general surgery: Absent: lymphadenopathy, tenderness, thyromegaly - Respiratory Additional comments: Patient has a loose moist cough. He has large airway congestion. When he coughs the congestion clears. He has diminished breath sounds throughout but otherwise clear. Slightly more diminished in left base which is chronic. - Cardiovascular Cardiovascular exam: Present: RRR, +S1, +S2, systolic murmur (2/6 systolic murmur. Occasional ectopic beat. Underlying rhythm appears to be regular) - GI/Abdominal Additional comments: Chronic mass right lower quadrant from renal transplant - Extremities Exam Additional comments: Lower extremities are shiny due to edema. He has pitting edema about two thirds to the knee. - Back Exam Additional comments: No spinal tenderness or skin breakdown on his back - Skin Additional comments: He has an Allevyn on her right forearm for a skin tear. His PICC line site loo ks normal. No signs of infection site. (nurse reported healing scab on right lateral foot which is chronic) Internal Med - H&P Results - Labs CBC & Chem 7: 05/29/19 05:21 05/29/19 05:21
[2019-05-25] MEDS ORDERED: Insulin DETEMIR 100 UNIT/ML X5UNITS SQ SCH (09:00)
[2019-05-25 11:22] LABS: Blood Urea Nitrogen > 130 mg/dL (8-23); Calcium 9.4 mg/dL (8.6-10.3); Carbon Dioxide 28 mEq/L (23-29); Chloride 104 mEq/L (98-107); Glucose 154 mg/dL (70-105); Potassium 3.9 mEq/L (3.5-5.1); Sodium 143 mEq/L (136-145); eGFR For African Americans 17 (> 60); eGFR For Non-African Americans 14 (> 60)
[2019-05-25 11:25] LABS: Eosinophils % 0.2 %; Hematocrit 31.6 % (37.5-50.1); Hemoglobin 9.3 g/dL (12.9-16.9); Immature Granulocytes % 0.7 % (0-4); Lymphocytes # 0.3 K/mcL (0.6-4.6); Lymphocytes % 4.4 %; Mean Corpuscular HGB Conc 29.4 g/dL (31.6-35.5); Mean Corpuscular Hemoglobin 27.5 pg (28.0-33.3); Mean Corpuscular Volume 93.5 fL (83.0-100.0); Monocytes # 0.7 K/mcL (0.0-1.3); Monocytes % 11.2 %; Neutrophils # 4.9 K/mcL (1.6-8.9); Nucleated Red Blood Cells 0.3 /100 WBC (0); Red Blood Count 3.38 M/mcL (4.19-5.50); Red Cell Distribution Width 22.3 % (11.5-14.5); Segmented Neutrophils % 83.5 %; White Blood Count 5.9 K/mcL (4.3-11.1)
[2019-05-25 11:32] LABS: Platelet Count 73 K/mcL (140-400)
[2019-05-25 11:34] LABS: Anisocytosis 1+ (Not Present); Platelet Estimate Decreased (Normal)
[2019-05-25] MEDS: Darbepoetin 100 MCG/0.5 ML SYRINGE SQ SCH (16:00)
[2019-05-25] MEDS: *HR* Dextrose 50 % in Water (Syg) 50 ML SYRINGE IVP PRN ×2 (16:16→16:28)
[2019-05-25] MEDS ORDERED: D5% in Water 500 ML IVC SCH (17:45)
[2019-05-25] MEDS ORDERED: 0.9 % Sodium Chloride 1,000 ML IVC SCH (22:15)
[2019-05-26] MEDS: Ipratropium/Albuterol Neb 3 ML IH SCH ×4 (05:15→23:40)
[2019-05-26 06:50] LABS: Hematocrit 31.4 % (37.5-50.1); Hemoglobin 9.1 g/dL (12.9-16.9); Immature Granulocytes % 0.5 % (0-4); Lymphocytes # 0.2 K/mcL (0.6-4.6); Lymphocytes % 5.1 %; Mean Corpuscular Volume 93.2 fL (83.0-100.0); Monocytes # 0.5 K/mcL (0.0-1.3); Monocytes % 12.4 %; Neutrophils # 3.4 K/mcL (1.6-8.9); Red Blood Count 3.37 M/mcL (4.19-5.50); Red Cell Distribution Width 22.8 % (11.5-14.5); White Blood Count 4.1 K/mcL (4.3-11.1)
[2019-05-26 07:04] LABS: Calcium 9.1 mg/dL (8.6-10.3); Potassium 4.4 mEq/L (3.5-5.1)
[2019-05-26 07:06] LABS: Platelet Count 60 K/mcL (140-400)
[2019-05-26 07:33] LABS: Anisocytosis 2+ (Not Present); Platelet Estimate Marked Decrease (Normal)
[2019-05-26 07:34] LABS: Macrocytosis Present (Not Present); Microcytosis Present (Not Present)
[2019-05-26] MEDS ORDERED: Mag Hydrox/Al Hydrox/Simeth 30 ML UDC PO PRN (07:56)
[2019-05-26] MEDS: Insulin DETEMIR 100 UNIT/ML X5UNITS SQ SCH (08:36)
[2019-05-26] MEDS: Vitamin E 200 UNIT (90MG) CAPSULE PO SCH ×2 (08:37→20:59)
[2019-05-26] MEDS: hydrALAZINE 25 MG TABLET PO SCH ×3 (08:37→23:39)
[2019-05-26] MEDS: FLUoxetine HCl 10 MG CAPSULE PO SCH (08:37)
[2019-05-26] MEDS: Torsemide 20 MG TABLET PO SCH ×3 (08:37→20:58)
[2019-05-26] MEDS: Cholecalciferol (D-3) 1,000 UNIT (25MCG) TABLET PO SCH (08:37)
[2019-05-26] MEDS: Isosorbide MONOnitrate (24 HR) 30 MG TAB.ER.24H PO SCH (08:38)
[2019-05-26] MEDS: predniSONE 20 MG TABLET PO SCH (08:38)
[2019-05-26] MEDS: Fluticasone Propionate Nasal 50 MCG/SPRAY BOTTLE NS SCH (08:40)
[2019-05-26] MEDS: Zinc Sulfate 220 MG CAPSULE PO SCH (08:41)
[2019-05-26] MEDS: EVEROLIMUS PO SCH ×2 (08:42→20:59)
[2019-05-26] MEDS: Insulin LISPRO 300 UNITS/3 ML VIAL SQ SCH ×5 (08:43→21:00)
[2019-05-26] MEDS: Budesonide/Formoterol 160/4.5 1 PUFF INH IH SCH ×2 (11:20→20:59)
--- NOTE | 2019-05-26 11:49 | Internal Med Progress Note ---
Date of Encounter: 05/26/19 Time of Encounter: 11:49 - Assessment and plan (1) Physical deconditioning Current Visit: Yes Status: Acute Assessment and plan: He continues with his physical therapy. He is trying to improve his ADLs. There are times when he becomes dyspneic and has to rest. No cardiac symptoms. (2) History of bacterial endocarditis Current Visit: Yes Status: Acute Assessment and plan: Continues to receive vancomycin. Dosing as per pharmacy. No fever. (3) Acute kidney injury superimposed on CKD Current Visit: Yes Status: Acute Assessment and plan: His creatinine is relatively stable. Labs are sent [facility] per their request (4) Thrombocytopenia Current Visit: Yes Status: Acute Assessment and plan: Thrombocytopenia relatively stable. Also known by [facility]. (5) Acute on chronic diastolic CHF (congestive heart failure) Current Visit: Yes Status: Chronic Assessment and plan: No significant change in his respiratory status. Continues with lower extremity edema. He is down a few pounds though. (6) DM type 2 (diabetes mellitus, type 2) Current Visit: Yes Status: Chronic Assessment and plan: Sugars have been elevated, remains receiving coverage. Last night however his sugars went low. He required D5W. He had not eaten well. It is now improved. Continue her on tapering dose of steroids. Qualifiers: Diabetes mellitus moth exterminator insulin use: with moth exterminator use Diabetes mellitus complication status: with hyperglycemia Qualified Code(s): E11.65 - Type 2 diabetes mellitus with hyperglycemia; Z79.4 - exterminator termite (current) use of insulin - Subjective Interval history: Last evening patient had a hypoglycemic event with sugar in the 30s. He had not eaten well. He required D50 2 and then was on D5W drip for 4 hours. He then apparently ate his supper well with his 's encouragement. He had no further hypoglycemia through the night. This morning he states he feels "rough" but denies any acute change in respiratory status, no cardiac chest pain or palpitations. He apparently rested well through the night. He is looking forward to physical therapy. Yesterday he was able to walk to and from physical therapy department - Constitutional Vitals: Temp Pulse Resp BP Pulse Ox 98.6 F 68 16 152/61 92 05/26/19 08:00 05/26/19 08:00 05/26/19 08:00 05/26/19 08:00 05/26/19 08:00 General appearance: Present: A&O X 3, no acute distress, answers questions appropriately - Respiratory Additional comments: Loose rattly cough, but lungs show diminished breath sounds but clear. Less breath sounds heard in the left base which is chronic. - Cardiovascular Cardiovascular exam: Present: RRR, +S1, +S2, systolic murmur (2/6 systolic murmur) - Extremities Exam Additional comments: Patient has pitting edema to 2/3 to the knees. Sock line indentation noted also. No skin breakdown. No calf tenderness - Neurological Exam Neurological exam: Present: alert Internal Medicine: Result - Labs CBC & Chem 7: 05/29/19 05:21 05/29/19 05:21 Labs: Short CBC 05/26/19 Range/Units 06:31 WBC 4.1 L (4.3-11.1) K/mcL Hgb 9.1 L (12.9-16.9) g/dL Hct 31.4 L (37.5-50.1) % Plt Count 60 L (140-400) K/mcL Neutrophils # 3.4 (1.6-8.9) K/mcL BMP 05/26/19 06:31 Sodium 139 Potassium 4.4 Chloride 101 Carbon Dioxide 26 BUN 128 H Creatinine 3.96 H Glucose 325 H Calcium 9.1 Labs have been reviewed. Hemoglobin is stable. Platelet count still low at 60,000. Creatinine improved from 4.1 to 3.96. Consult Discharge Plan - Plan Referrals: Mike Kraus MD [Primary Care Provider] -
[2019-05-27] MEDS: Ipratropium/Albuterol Neb 3 ML IH SCH ×4 (04:47→22:49)
[2019-05-27 05:12] LABS: Hemoglobin 8.9 g/dL (12.9-16.9); Immature Granulocytes % 0.9 % (0-4); Lymphocytes # 0.2 K/mcL (0.6-4.6); Lymphocytes % 5.3 %; Mean Corpuscular HGB Conc 28.7 g/dL (31.6-35.5); Mean Corpuscular Hemoglobin 27.5 pg (28.0-33.3); Mean Corpuscular Volume 95.7 fL (83.0-100.0); Monocytes # 0.6 K/mcL (0.0-1.3); Monocytes % 13.2 %; Neutrophils # 3.5 K/mcL (1.6-8.9); Red Blood Count 3.24 M/mcL (4.19-5.50); Segmented Neutrophils % 80.6 %; White Blood Count 4.3 K/mcL (4.3-11.1)
[2019-05-27 05:27] LABS: Platelet Count 69 K/mcL (140-400)
[2019-05-27 05:30] LABS: Anisocytosis 2+ (Not Present)
[2019-05-27 05:31] LABS: Macrocytosis Present (Not Present)
[2019-05-27 05:33] LABS: Microcytosis Present (Not Present); Platelet Estimate Decreased (Normal)
--- NOTE | 2019-05-27 07:13 | Internal Med Progress Note ---
Date of Encounter: 05/27/19 Time of Encounter: 07:11 - Assessment and plan (1) Physical deconditioning Current Visit: Yes Status: Acute Assessment and plan: Patient continues with PT and OT for his deconditioning. He feels like he is getting stronger. No angina or CHF noted with his therapy. (2) Acute kidney injury superimposed on CKD Current Visit: Yes Status: Acute Assessment and plan: His creatinine is back up to 4.03. On review from [facility] his creatinine has been hovering in the high 3 and low 4 range. His weight is down 4 pounds, less edema. We will follow. (3) Acute and chronic respiratory failure Current Visit: Yes Status: Chronic Assessment and plan: His pulmonary status appears to be stable. He has large airway congestion, when he coughs his lung vu are essentially clear. Still requiring oxygen at 3-4 L per nasal cannula. No respiratory distress currently. He feels like his breathing is better. Consideration for adding Mucomyst Qualifiers: Respiratory failure complication: hypoxia and hypercapnia Qualified Code(s): J96.21 - Acute and chronic respiratory failure with hypoxia; J96.22 - Acute and chronic respiratory failure with hypercapnia (4) Anemia Current Visit: Yes Status: Chronic Assessment and plan: Chronic anemia from multiple etiologies. Stable at this time. Qualifiers: Anemia type: iron deficiency Iron deficiency anemia type: unspecified iron deficiency Qualified Code(s): D50.9 - Iron deficiency anemia, unspecified (5) CAD (coronary artery disease) of artery bypass graft Current Visit: Yes Status: Chronic Assessment and plan: No angina or CHF noted. Qualifiers: [place] vs. transplanted heart: [place] heart Associated angina: without angina Qualified Code(s): I25.810 - Atherosclerosis of coronary artery bypass graft(s) without angina pectoris (6) S/P kidney transplant Current Visit: Yes Status: Chronic Assessment and plan: Renal function as discussed above. (7) Acute on chronic diastolic CHF (congestive heart failure) Current Visit: Yes Status: Chronic Assessment and plan: His lung vu do not show signs of acute congestive heart failure. His edema in lower legs is improving. His weight is down 4 pounds. Continue current regimen. He is tolerating his therapies. (8) HTN (hypertension) Current Visit: Yes Status: Chronic Assessment and plan: Blood pressure under good control. Qualifiers: Hypertension type: essential hypertension Qualified Code(s): I10 - Essential (primary) hypertension (9) History of aortic valve replacement with bioprosthetic valve Current Visit: No Status: Chronic Assessment and plan: Currently no angina or CHF. (10) CKD (chronic kidney disease) stage 4, GFR 15-29 ml/min Current Visit: Yes Status: Chronic Assessment and plan: Creatinine is staying in the 3-4 range. We will continue to follow. He has less edema and is down 4 pounds. (11) DM type 2 (diabetes mellitus, type 2) Current Visit: Yes Status: Chronic Assessment and plan: His sugars are still not under good control. Has insulin as well as sliding scale for coverage. He is still on a taper of prednisone. Qualifiers: Diabetes mellitus intermediate school teacher insulin use: with intermediate school teacher use Diabetes mellitus complication status: with hyperglycemia Qualified Code(s): E11.65 - Type 2 diabetes mellitus with hyperglycemia; Z79.4 - nursing home (current) use of insulin (12) History of bacterial endocarditis Current Visit: Yes Status: Acute Assessment and plan: Continue with vancomycin per pharmacy adjustment (13) Thrombocytopenia Current Visit: Yes Status: Acute Assessment and plan: Continues with his thrombocytopenia that was present also at [facility]. No obvious bleeding currently. Continue to follow. (14) DVT prophylaxis Current Visit: Yes Status: Acute Assessment and plan: Because of his recurring anemia issues, frequent blood transfusions, he is not a great candidate for anticoagulation/DVT prophylaxis beyond frequent ambulation and elastic stockings. - Subjective Interval history: Patient states that he feels better today. His breathing got better yesterday. He is having less swelling in his legs. Denies any angina. His appetite is improving. In the middle of the night he had toasted cheese sandwich and a tomato. He said he participated with therapy yesterday and looking forward to it today. He was able to walk to the therapy department but had to use wheelchair part way back. He requested Tylenol this morning for general aches and pains. He says he averages about one a day at home and helps him rest at night. - Constitutional Vitals: Temp Pulse Resp BP Pulse Ox 98.3 F 66 18 134/59 91 05/27/19 06:40 05/27/19 06:40 05/27/19 06:40 05/27/19 06:40 05/27/19 06:40 General appearance: Present: A&O X 3, no acute distress, answers questions appropriately - Respiratory Additional comments: Large airway congested moist cough. No respiratory distress. After coughing his lung vu are clear except decreased breath sounds at left base which is chronic. - Cardiovascular Additional comments: Slightly irregular rhythm with 2/6 systolic murmur. Rate controlled. - Extremities Exam Additional comments: Still has edema of lower extremities to about two thirds to the knee, but less so. No heel breakdown. No calf tenderness. Healing scab on the right lateral heel measures about 2-3 mm Internal Medicine: Result - Labs CBC & Chem 7: 05/27/19 04:52 05/27/19 04:52 Labs: Short CBC 05/26/19 05/27/19 Range/Units 06:31 04:52 WBC 4.1 L 4.3 (4.3-11.1) K/mcL Hgb 9.1 L 8.9 L (12.9-16.9) g/dL Hct 31.4 L 31.0 L (37.5-50.1) % Plt Count 60 L 69 L (140-400) K/mcL Neutrophils # 3.4 3.5 (1.6-8.9) K/mcL BMP 05/27/19 04:52 Sodium 144 Potassium 4.0 Chloride 104 Carbon Dioxide 30 H BUN 128 H Creatinine 4.03 H Glucose 227 H Calcium 9.0 Labs have been reviewed. Hemoglobin slightly lower but maintaining. Creatinine now up to 4.03 which is not unusual for him now. Accu-Chek sugar was 252 Consult Discharge Plan - Plan Referrals: Mike Kraus MD [Primary Care Provider] -
[2019-05-27] MEDS: hydrALAZINE 25 MG TABLET PO SCH ×3 (09:31→22:50)
[2019-05-27] MEDS: predniSONE 10 MG TABLET PO SCH (09:32)
[2019-05-27] MEDS: FLUoxetine HCl 10 MG CAPSULE PO SCH (09:32)
[2019-05-27] MEDS: Cholecalciferol (D-3) 1,000 UNIT (25MCG) TABLET PO SCH (09:32)
[2019-05-27] MEDS: Torsemide 20 MG TABLET PO SCH ×3 (09:32→22:47)
[2019-05-27] MEDS: Vitamin E 200 UNIT (90MG) CAPSULE PO SCH ×2 (09:32→22:48)
[2019-05-27] MEDS: Insulin DETEMIR 100 UNIT/ML X5UNITS SQ SCH (09:33)
[2019-05-27] MEDS: Isosorbide MONOnitrate (24 HR) 30 MG TAB.ER.24H PO SCH (09:33)
[2019-05-27] MEDS: Zinc Sulfate 220 MG CAPSULE PO SCH (09:33)
[2019-05-27] MEDS: Insulin LISPRO 300 UNITS/3 ML VIAL SQ SCH ×4 (09:34→22:50)
[2019-05-27] MEDS: Fluticasone Propionate Nasal 50 MCG/SPRAY BOTTLE NS SCH (09:34)
[2019-05-27] MEDS: EVEROLIMUS PO SCH ×2 (09:34→22:48)
[2019-05-27] MEDS: Budesonide/Formoterol 160/4.5 1 PUFF INH IH SCH ×2 (10:18→22:49)
[2019-05-28] MEDS: Ipratropium/Albuterol Neb 3 ML IH SCH ×4 (06:25→21:52)
[2019-05-28] MEDS ORDERED: ZORTRESS 0.5 MG PO SCH ×2 (09:00→21:00)
[2019-05-28] MEDS: FLUoxetine HCl 10 MG CAPSULE PO SCH (10:24)
[2019-05-28] MEDS: Torsemide 20 MG TABLET PO SCH ×3 (10:24→21:53)
[2019-05-28] MEDS: hydrALAZINE 25 MG TABLET PO SCH ×2 (10:24→17:04)
[2019-05-28] MEDS: Vitamin E 200 UNIT (90MG) CAPSULE PO SCH ×2 (10:24→21:53)
[2019-05-28] MEDS: Cholecalciferol (D-3) 1,000 UNIT (25MCG) TABLET PO SCH (10:25)
[2019-05-28] MEDS: predniSONE 10 MG TABLET PO SCH (10:25)
[2019-05-28] MEDS: Isosorbide MONOnitrate (24 HR) 30 MG TAB.ER.24H PO SCH (10:25)
[2019-05-28] MEDS: Zinc Sulfate 220 MG CAPSULE PO SCH (10:25)
[2019-05-28] MEDS: Insulin LISPRO 300 UNITS/3 ML VIAL SQ SCH ×4 (10:26→21:52)
[2019-05-28] MEDS: Fluticasone Propionate Nasal 50 MCG/SPRAY BOTTLE NS SCH (10:32)
[2019-05-28] MEDS: Budesonide/Formoterol 160/4.5 1 PUFF INH IH SCH ×2 (10:32→21:53)
[2019-05-28] MEDS: ZORTRESS PO SCH ×2 (10:34→21:52)
[2019-05-28] MEDS: Insulin DETEMIR 100 UNIT/ML X5UNITS SQ SCH (10:40)
[2019-05-28 10:55] LABS: Potassium 3.9 mEq/L (3.5-5.1)
--- NOTE | 2019-05-28 18:07 | Internal Med Progress Note ---
Date of Encounter: 05/28/19 Time of Encounter: 18:05 - Assessment and plan (1) Physical deconditioning Current Visit: Yes Status: Acute Assessment and plan: He thought he did well in physical therapy today. Still needs lots of a ssistance. Easily fatigued. Easily dyspneic. (2) Acute kidney injury superimposed on CKD Current Visit: Yes Status: Acute Assessment and plan: Creatinine 4.05, slightly worse. Appears to be at baseline from [facility]. (3) Acute and chronic respiratory failure Current Visit: Yes Status: Chronic Assessment and plan: Respiratory esposito he is stable. Still requires 3-4 L per nasal cannula. Still gets aggressive respiratory treatments Qualifiers: Respiratory failure complication: hypoxia and hypercapnia Qualified Code(s): J96.21 - Acute and chronic respiratory failure with hypoxia; J96.22 - Acute and chronic respiratory failure with hypercapnia (4) Anemia Current Visit: Yes Status: Chronic Assessment and plan: His hemoglobin is now up to 9.5! Qualifiers: Anemia type: iron deficiency Iron deficiency anemia type: unspecified iron deficiency Qualified Code(s): D50.9 - Iron deficiency anemia, unspecified (5) CAD (coronary artery disease) of artery bypass graft Current Visit: Yes Status: Chronic Assessment and plan: No angina or CHF. Qualifiers: [place] vs. transplanted heart: [place] & [place] heart Associated angina: without angina Qualified Code(s): I25.810 - Atherosclerosis of coronary artery bypass graft(s) without angina pectoris (6) S/P kidney transplant Current Visit: Yes Status: Chronic (7) Acute on chronic diastolic CHF (congestive heart failure) Current Visit: Yes Status: Chronic Assessment and plan: Continues with lower extremity edema, I do not think this is acute congestive heart failure. His weight is down 7 pounds though. Continue same regimen. (8) HTN (hypertension) Current Visit: Yes Status: Chronic Qualifiers: Hypertension type: essential hypertension Qualified Code(s): I10 - Essential (primary) hypertension (9) History of aortic valve replacement with bioprosthetic valve Current Visit: No Status: Chronic (10) CKD (chronic kidney disease) stage 4, GFR 15-29 ml/min Current Visit: Yes Status: Chronic (11) DM type 2 (diabetes mellitus, type 2) Current Visit: Yes Status: Chronic Assessment and plan: Sugars are still elevated. There are times when he will not allow the nurse to give the full coverage of insulin. He is on steroids. Qualifiers: Diabetes mellitus intermodal dispatcher insulin use: with intermodal dispatcher use Diabetes mellitus complication status: with hyperglycemia Qualified Code(s): E11.65 - Type 2 diabetes mellitus with hyperglycemia; Z79.4 - intermediate accountant (current) use of insulin (12) History of bacterial endocarditis Current Visit: Yes Status: Acute Assessment and plan: Continues with vancomycin and adjusted by pharmacy (13) Thrombocytopenia Current Visit: Yes Status: Acute Assessment and plan: recheck platelet count tomorrow (14) Diarrhea Current Visit: Yes Status: Acute Assessment and plan: He has started having diarrhea and had 2 episodes of incontinence. He thinks it is from his nutritional supplement. We will hold that and see what happens. R ight now not meeting criteria for checking for C. difficile. Qualifiers: Diarrhea type: unspecified type Qualified Code(s): R19.7 - Diarrhea, un specified (15) DVT prophylaxis Current Visit: Yes Status: Acute - Subjective Interval history: Patient thought he did very well with physical therapy today. Denies any cardiac type chest pain area no changes in his breathing. He requested cough drops for his throat and he feels they are very helpful. He still has edema in lower extremities, but notes that he has lost 7 pounds. His biggest complaint is that he has had diarrhea and was incontinent twice. He thinks it is due to the nutritional supplement. - Constitutional Vitals: Temp Pulse Resp BP Pulse Ox 98.0 F 65 18 133/57 95 05/28/19 16:38 05/28/19 16:38 05/28/19 16:38 05/28/19 16:38 05/28/19 16:38 General appearance: Present: A&O X 3, no acute distress, answers questions appropriately Exam: Sitting up at the edge of the bed having dinner. Occasional harsh cough. No distress. - Respiratory Additional comments: Large airway congestion sounds that basically clear with cough. Diminished breath sounds left base chronically. No wheezing. - Cardiovascular Cardiovascular exam: Present: RRR, +S1, +S2, systolic murmur (2/6 systolic murmur) - Extremities Exam Additional comments: Pitting edema at least shelter up his shins. Internal Medicine: Result - Labs CBC & Chem 7: 05/28/19 10:12 05/28/19 10:12 Labs: Short CBC 05/28/19 Range/Units 10:12 Hgb 9.5 L (12.9-16.9) g/dL BMP 05/28/19 10:12 Sodium 141 Potassium 3.9 Chloride 102 Carbon Dioxide 26 BUN 122 H Creatinine 4.05 H Glucose 401 H Calcium 9.0 Labs have been reviewed. Hemoglobin up to 9.5. Creatinine relatively stable at 4.05. Consult Discharge Plan - Plan Referrals: Mike Kraus MD [Primary Care Provider] -
[2019-05-29] MEDS: hydrALAZINE 25 MG TABLET PO SCH ×4 (00:54→17:37)
[2019-05-29] MEDS: Ipratropium/Albuterol Neb 3 ML IH SCH ×4 (05:24→21:49)
[2019-05-29 05:39] LABS: Eosinophils % 0.2 %; Hematocrit 31.2 % (37.5-50.1); Hemoglobin 8.9 g/dL (12.9-16.9); Immature Granulocytes % 0.7 % (0-4); Lymphocytes # 0.3 K/mcL (0.6-4.6); Lymphocytes % 6.9 %; Mean Corpuscular HGB Conc 28.5 g/dL (31.6-35.5); Mean Corpuscular Hemoglobin 27.4 pg (28.0-33.3); Monocytes # 0.7 K/mcL (0.0-1.3); Monocytes % 15.6 %; Neutrophils # 3.5 K/mcL (1.6-8.9); Nucleated Red Blood Cells 0.4 /100 WBC (0); Red Blood Count 3.25 M/mcL (4.19-5.50); Red Cell Distribution Width 22.5 % (11.5-14.5); Segmented Neutrophils % 76.6 %; White Blood Count 4.5 K/mcL (4.3-11.1)
[2019-05-29 05:42] LABS: Platelet Count 50 K/mcL (140-400)
[2019-05-29 05:58] LABS: Potassium 3.6 mEq/L (3.5-5.1)
[2019-05-29] MEDS: Insulin LISPRO 300 UNITS/3 ML VIAL SQ SCH ×4 (08:14→21:52)
[2019-05-29] MEDS: Torsemide 20 MG TABLET PO SCH ×3 (08:28→21:51)
[2019-05-29] MEDS: Isosorbide MONOnitrate (24 HR) 30 MG TAB.ER.24H PO SCH (08:28)
[2019-05-29] MEDS: FLUoxetine HCl 10 MG CAPSULE PO SCH (08:28)
[2019-05-29] MEDS: Zinc Sulfate 220 MG CAPSULE PO SCH (08:28)
[2019-05-29] MEDS: Vitamin E 200 UNIT (90MG) CAPSULE PO SCH ×2 (08:28→21:49)
[2019-05-29] MEDS: predniSONE 10 MG TABLET PO SCH (08:29)
[2019-05-29] MEDS: Cholecalciferol (D-3) 1,000 UNIT (25MCG) TABLET PO SCH (08:29)
[2019-05-29] MEDS: Budesonide/Formoterol 160/4.5 1 PUFF INH IH SCH ×2 (08:29→21:51)
[2019-05-29] MEDS: ZORTRESS PO SCH ×2 (08:29→21:52)
[2019-05-29] MEDS: Fluticasone Propionate Nasal 50 MCG/SPRAY BOTTLE NS SCH (08:30)
[2019-05-29] MEDS: Insulin DETEMIR 100 UNIT/ML X5UNITS SQ SCH (08:31)
--- NOTE | 2019-05-29 14:13 | Internal Med Progress Note ---
Date of Encounter: 05/29/19 Time of Encounter: 14:11 - Assessment and plan (1) Physical deconditioning Current Visit: Yes Status: Acute Assessment and plan: He will be continuing with his therapy. He seems stronger today. He is eager to be active. No acute cardiopulmonary symptoms. (2) Acute kidney injury superimposed on CKD Current Visit: Yes Status: Acute Assessment and plan: Creatinine improved to 3.87 today. Still has pitting edema. His weight is stable after having lost 7 pounds. (3) Acute and chronic respiratory failure Current Visit: Yes Status: Chronic Assessment and plan: Pulmonary status is stable. Consideration for adding Mucomyst if not contraindicated with his medical problems Qualifiers: Respiratory failure complication: hypoxia and hypercapnia Qualified Code(s): J96.21 - Acute and chronic respiratory failure with hypoxia; J96.22 - Acute and chronic respiratory failure with hypercapnia (4) Anemia Current Visit: Yes Status: Chronic Assessment and plan: Generally stable at this time Qualifiers: Anemia type: iron deficiency Iron deficiency anemia type: unspecified iron deficiency Qualified Code(s): D50.9 - Iron deficiency anemia, unspecified (5) CAD (coronary artery disease) of artery bypass graft Current Visit: Yes Status: Chronic Assessment and plan: No angina or palpitations Qualifiers: [place] vs. transplanted heart: [place] heart Associated angina: without angina Qualified Code(s): I25.810 - Atherosclerosis of coronary artery bypass graft(s) without angina pectoris (6) S/P kidney transplant Current Visit: Yes Status: Chronic (7) Acute on chronic diastolic CHF (congestive heart failure) Current Visit: Yes Status: Chronic Assessment and plan: Appears stable. Chronic lower extremity edema without acute pulmonary symptoms (8) HTN (hypertension) Current Visit: Yes Status: Chronic Assessment and plan: Blood pressure controlled. Qualifiers: Hypertension type: essential hypertension Qualified Code(s): I10 - Essential (primary) hypertension (9) History of aortic valve replacement with bioprosthetic valve Current Visit: No Status: Chronic (10) CKD (chronic kidney disease) stage 4, GFR 15-29 ml/min Current Visit: Yes Status: Chronic Assessment and plan: Creatinine stable at 3.87. (11) DM type 2 (diabetes mellitus, type 2) Current Visit: Yes Status: Chronic Assessment and plan: Blood sugar is staying in the 100s now. He is tapering down on the prednisone. Qualifiers: Diabetes mellitus jail insulin use: with jail use Diabetes shukri itus complication status: with hyperglycemia Qualified Code(s): E11.65 - Type 2 diabetes mellitus with hyperglycemia; Z79.4 - terminal block assembler (current) use of insulin (12) History of bacterial endocarditis Current Visit: Yes Status: Acute Assessment and plan: Continues with his vancomycin as per pharmacy dosing (13) Thrombocytopenia Current Visit: Yes Status: Acute Assessment and plan: Staying in the 50,000-70,000 range. [facility] was aware (14) Diarrhea Current Visit: Yes Status: Acute Assessment and plan: Resolved since holding his nutritional supplement Qualifiers: Diarrhea type: unspecified type Qualified Code(s): R19.7 - Diarrhea, unspecified (15) DVT prophylaxis Current Visit: Yes Status: Acute Assessment and plan: No pharmacological DVT prophylaxis because of his history of recurring bleeding and need for transfusions. Has a low platelet count. He is ambulating frequently. No signs of DVT. - Subjective Interval history: Patient thinks that he is doing fairly well today. He is eager to be wheeled out onto the garden area for some sunlight today. There is no therapy scheduled today. He denies a cardiac type chest pain or palpitations. His cough and breathing is about the same. Still requiring 3-4 L per nasal cannula. Still has lower extremity edema. He has been eating well. No diarrhea today since his liquid supplement has been held. - Constitutional Vitals: Temp Pulse Resp BP Pulse Ox 97.7 F 100 14 148/62 95 05/29/19 11:00 05/29/19 11:00 05/29/19 11:00 05/29/19 11:00 05/29/19 11:00 General appearance: Present: A&O X 3, no acute distress, answers questions appropriately Exam: He is sitting up in a wheelchair wearing a sweatshirt and getting ready to go to the garden - Respiratory Additional comments: Harsh moist cough as usual, his lung vu though clear with cough except for slight decreased breath sounds at left base. No respiratory distress. - Cardiovascular Cardiovascular exam: Present: RRR, +S1, +S2, systolic murmur (2/6 systolic murmur, occasional ectopic beat is noted. Underlying rhythm appears to be regular) - Extremities Exam Additional comments: Pitting edema nearly to his knees bilaterally. I did not check his feet today. Internal Medicine: Result - Labs CBC & Chem 7: 05/29/19 05:21 05/29/19 05:21 Labs: Short CBC 05/29/19 Range/Units 05:21 WBC 4.5 (4.3-11.1) K/mcL Hgb 8.9 L (12.9-16.9) g/dL Hct 31.2 L (37.5-50.1) % Plt Count 50 L (140-400) K/mcL Neutrophils # 3.5 (1.6-8.9) K/mcL BMP 05/29/19 05:21 Sodium 144 Potassium 3.6 Chloride 104 Carbon Dioxide 31 H BUN 123 H Creatinine 3.87 H Glucose 150 H Calcium 9.0 Labs have been reviewed. Hemoglobin stable. Creatinine improved to 3.87. Platelet count 50,000. Consult Discharge Plan - Plan Referrals: Mike Kraus MD [Primary Care Provider] -
[2019-05-30] MEDS: Ipratropium/Albuterol Neb 3 ML IH SCH ×4 (05:12→23:10)
[2019-05-30 05:33] LABS: Calcium 8.9 mg/dL (8.6-10.3); Potassium 3.9 mEq/L (3.5-5.1)
[2019-05-30] MEDS: FLUoxetine HCl 10 MG CAPSULE PO SCH (08:07)
[2019-05-30] MEDS: predniSONE 10 MG TABLET PO SCH (08:07)
[2019-05-30] MEDS: Zinc Sulfate 220 MG CAPSULE PO SCH (08:07)
[2019-05-30] MEDS: hydrALAZINE 25 MG TABLET PO SCH ×3 (08:07→23:19)
[2019-05-30] MEDS: Torsemide 20 MG TABLET PO SCH ×3 (08:07→20:50)
[2019-05-30] MEDS: Cholecalciferol (D-3) 1,000 UNIT (25MCG) TABLET PO SCH (08:07)
[2019-05-30] MEDS: Isosorbide MONOnitrate (24 HR) 30 MG TAB.ER.24H PO SCH (08:07)
[2019-05-30] MEDS: Vitamin E 200 UNIT (90MG) CAPSULE PO SCH ×2 (08:09→20:50)
[2019-05-30] MEDS: ZORTRESS PO SCH ×2 (08:10→20:53)
[2019-05-30] MEDS: Fluticasone Propionate Nasal 50 MCG/SPRAY BOTTLE NS SCH (08:10)
[2019-05-30] MEDS: Insulin DETEMIR 100 UNIT/ML X5UNITS SQ SCH (08:15)
[2019-05-30] MEDS: Insulin LISPRO 300 UNITS/3 ML VIAL SQ SCH ×4 (09:33→20:54)
--- NOTE | 2019-05-30 10:45 | Internal Med Progress Note ---
Date of Encounter: 05/30/19 Time of Encounter: 10:43 - Assessment and plan (1) Physical deconditioning Current Visit: Yes Status: Acute Assessment and plan: Likely he will hold off on physical therapy today because he does not feel well. We will reassess in the afternoon. (2) History of bacterial endocarditis Current Visit: Yes Status: Acute Assessment and plan: Continues with vancomycin intravenously and dose adjusted by pharmacy (3) Acute kidney injury superimposed on CKD Current Visit: Yes Status: Acute Assessment and plan: Renal function is poor but stable. (4) Thrombocytopenia Current Visit: Yes Status: Acute Assessment and plan: Thrombocytopenia is stable. No active bleeding sites noted. (5) Acute on chronic diastolic CHF (congestive heart failure) Current Visit: Yes Status: Chronic Assessment and plan: No obvious acute congestive heart failure. He does have lower extremity edema for multiple reasons. His weight went up also. I will verify he is getting his torsemide 3 times a day (6) DM type 2 (diabetes mellitus, type 2) Current Visit: Yes Status: Chronic Assessment and plan: Sugars have been mildly elevated, overall better since he is tapering the prednisone Qualifiers: Diabetes mellitus longterm insulin use: with exterminator termite use Diabetes mellitus complication status: with hyperglycemia Qualified Code(s): E11.65 - Type 2 diabetes mellitus with hyperglycemia; Z79.4 - custodial (current) use of insulin - Subjective Interval history: Patient states that he does not feel well today. Complains of a fullness in the epigastric area after eating part of his breakfast. He wants to try an antacid. No chest pain. No change in breathing issues. No bowel movement since yesterday. Diarrhea is now gone. He really enjoyed being in the garden in the sun yesterday. He does not think he can do therapy this morning though. - Constitutional Vitals: Temp Pulse Resp BP Pulse Ox 97.9 F 69 17 147/69 93 05/30/19 07:45 05/30/19 07:45 05/30/19 07:45 05/30/19 07:45 05/30/19 07:45 General appearance: Present: mild distress (He looks like he does not feel well today. He was napping when I woke him.), A&O X 3, answers questions appropriately - Respiratory Respiratory exam: Present: decreased breath sounds Additional comments: Loose rattling cough, but after coughing lung vu are clear except decreased breath sounds at right base which is chronic. No respiratory distress. Saturations are good with oxygen. - Cardiovascular Cardiovascular exam: Present: RRR, +S1, +S2, systolic murmur (2/6 systolic murmur) - GI/Abdominal GI/Abdominal exam: Present: soft, no peritoneal signs. Absent: distended, guarding, pulsatile mass, splenomegaly, tenderness - Extremities Exam Additional comments: Pitting edema two thirds to the knee bilaterally. Dorsum of his feet look worse today. No skin breakdown. Internal Medicine: Result - Labs CBC & Chem 7: 05/31/19 05:15 05/31/19 05:15 Labs: BMP 05/30/19 05:07 Sodium 141 Potassium 3.9 Chloride 100 Carbon Dioxide 34 H BUN 118 H Creatinine 3.73 H Glucose 334 H Calcium 8.9 Consult Discharge Plan - Plan Referrals: Mike Kraus MD [Primary Care Provider] -
[2019-05-30] MEDS: Budesonide/Formoterol 160/4.5 1 PUFF INH IH SCH ×2 (11:01→20:11)
[2019-05-31] MEDS: Ipratropium/Albuterol Neb 3 ML IH SCH ×4 (04:19→23:39)
[2019-05-31 05:34] LABS: Eosinophils % 0.7 %; Hematocrit 31.5 % (37.5-50.1); Hemoglobin 8.8 g/dL (12.9-16.9); Immature Granulocytes % 0.7 % (0-4); Lymphocytes # 0.4 K/mcL (0.6-4.6); Mean Corpuscular HGB Conc 27.9 g/dL (31.6-35.5); Mean Corpuscular Hemoglobin 27.4 pg (28.0-33.3); Mean Corpuscular Volume 98.1 fL (83.0-100.0); Monocytes # 0.6 K/mcL (0.0-1.3); Monocytes % 14.5 %; Red Blood Count 3.21 M/mcL (4.19-5.50); Red Cell Distribution Width 22.5 % (11.5-14.5); Segmented Neutrophils % 74.1 %; White Blood Count 4.1 K/mcL (4.3-11.1)
[2019-05-31 05:36] LABS: Platelet Count 40 K/mcL (140-400)
[2019-05-31 06:32] LABS: Calcium 8.8 mg/dL (8.6-10.3); Potassium 3.9 mEq/L (3.5-5.1)
--- NOTE | 2019-05-31 07:12 | Internal Med Progress Note ---
Date of Encounter: 05/31/19 Time of Encounter: 07:09 - Assessment and plan (1) Physical deconditioning Current Visit: Yes Status: Acute Assessment and plan: Hopefully he will feel well enough to do physical therapy today. He looks better and has a positive attitude (2) History of bacterial endocarditis Current Visit: Yes Status: Acute Assessment and plan: Continue with vancomycin. Dosing as per pharmacy. No fever or leukocytosis (3) Acute kidney injury superimposed on CKD Current Visit: Yes Status: Acute Assessment and plan: Creatinine slightly the improved/stable (4) Thrombocytopenia Current Visit: Yes Status: Acute Assessment and plan: Cytopenia has worsened and platelet count down to 40,000. I will check with [facility] to see if they want any intervention. (5) Acute on chronic diastolic CHF (congestive heart failure) Current Visit: Yes Status: Chronic Assessment and plan: No acute changes. Does have chronic edema lower extremities, likely from being dependent and not from CHF (6) DM type 2 (diabetes mellitus, type 2) Current Visit: Yes Status: Chronic Assessment and plan: Labile sugars, overall improving as he is tapering off prednisone. Qualifiers: Diabetes mellitus long term care administrator insulin use: with long term care administrator use Diabetes mellitus complication status: with hyperglycemia Qualified Code(s): E11.65 - Type 2 diabetes mellitus with hyperglycemia; Z79.4 - manager terminal (current) use of insulin - Subjective Interval history: Patient states that he feels better today. He thinks he had a good night except he needed a breathing treatment at about 3 AM. He said his sats on his pulse oximeter was in the 44% range. Documentation in the chart says his sats are good. He was not feeling well enough to do therapies yesterday, but his took him to the garden. He said he feels better today and looks forward to trying to do therapy. He states there are times when he eats when he has a fullness in the upper epigastric area. No nausea or vomiting. Bowel movements have been normal. He denies any new respiratory changes, still has a cough. He denies a cardiac type chest pain or palpitations. Still has the edema in his feet and ankles. He thinks this is better. He declines compression stockings, pneumatic compression devices. - Constitutional Vitals: Temp Pulse Resp BP Pulse Ox 98.0 F 70 14 147/59 98 05/30/19 23:18 09/23/19 23:18 05/31/19 04:21 05/30/19 23:18 05/31/19 04:21 General appearance: Present: A&O X 3, answers questions appropriately Exam: He looks better today. Positive and looks more energetic. No distress. - Respiratory Respiratory exam: Present: decreased breath sounds Additional comments: Loose rattling cough, but lung vu are clear except for decreased breath sounds in left base chronically. No change. - Cardiovascular Cardiovascular exam: Present: RRR, +S1, +S2, systolic murmur (2 to 3/6 systolic murmur) - GI/Abdominal GI/Abdominal exam: Present: soft, no peritoneal signs. Absent: distended, guarding, tenderness - Extremities Exam Additional comments: Continues with pitting edema nearly to the knees. However, the dorsum of the right foot is less edematous, some wrinkles are forming. Slightly less edema in the left dorsal foot but it is certainly worse than the right. No calf tenderness. Not red or hot or any open areas. Internal Medicine: Result - Labs CBC & Chem 7: 05/31/19 05:15 05/31/19 05:15 Labs: Short CBC 05/31/19 Range/Units 05:15 WBC 4.1 L (4.3-11.1) K/mcL Hgb 8.8 L (12.9-16.9) g/dL Hct 31.5 L (37.5-50.1) % Plt Count 40 L (140-400) K/mcL Neutrophils # 3.0 (1.6-8.9) K/mcL BMP 05/31/19 05:15 Sodium 140 Potassium 3.9 Chloride 99 Carbon Dioxide 33 H BUN 116 H Creatinine 3.61 H Glucose 327 H Calcium 8.8 Labs have been reviewed. Hemoglobin is staying stable. Creatinine slightly improved. Platelet count is now down to 40,000. Consult Discharge Plan - Plan Referrals: Mike Kraus MD [Primary Care Provider] -
[2019-05-31] MEDS: Vitamin E 200 UNIT (90MG) CAPSULE PO SCH ×2 (08:10→21:55)
[2019-05-31] MEDS: hydrALAZINE 25 MG TABLET PO SCH ×3 (08:10→23:43)
[2019-05-31] MEDS: Zinc Sulfate 220 MG CAPSULE PO SCH (08:11)
[2019-05-31] MEDS: FLUoxetine HCl 10 MG CAPSULE PO SCH (08:11)
[2019-05-31] MEDS: Cholecalciferol (D-3) 1,000 UNIT (25MCG) TABLET PO SCH (08:11)
[2019-05-31] MEDS: Isosorbide MONOnitrate (24 HR) 30 MG TAB.ER.24H PO SCH (08:11)
[2019-05-31] MEDS: Torsemide 20 MG TABLET PO SCH ×3 (08:11→21:55)
[2019-05-31] MEDS: Fluticasone Propionate Nasal 50 MCG/SPRAY BOTTLE NS SCH (08:11)
[2019-05-31] MEDS: ZORTRESS PO SCH ×2 (08:12→21:55)
[2019-05-31] MEDS: Insulin DETEMIR 100 UNIT/ML X5UNITS SQ SCH (08:15)
[2019-05-31] MEDS: Insulin LISPRO 300 UNITS/3 ML VIAL SQ SCH ×4 (08:15→21:34)
[2019-05-31] MEDS: Budesonide/Formoterol 160/4.5 1 PUFF INH IH SCH ×2 (10:31→20:13)
[2019-06-01] MEDS: Ipratropium/Albuterol Neb 3 ML IH SCH ×4 (04:53→23:26)
--- NOTE | 2019-06-01 07:35 | Internal Med Progress Note ---
Date of Encounter: 06/01/19 Time of Encounter: 07:33 - Assessment and plan (1) Physical deconditioning Current Visit: Yes Status: Acute Assessment and plan: Continues with his therapies. Some days better than others. Yesterday afternoon he did well. We will see how he does today. He looks better today. (2) History of bacterial endocarditis Current Visit: Yes Status: Acute Assessment and plan: Continues with vancomycin and dosed per pharmacy (3) Acute kidney injury superimposed on CKD Current Visit: Yes Status: Acute Assessment and plan: Renal function has been poor but stable. We will recheck tomorrow. (4) Thrombocytopenia Current Visit: Yes Status: Acute Assessment and plan: Thrombocytopenia has been chronic. No active bleeding noted other than possibly in his sputum after coughing. No gross hemorrhaging. (5) Acute on chronic diastolic CHF (congestive heart failure) Current Visit: Yes Status: Chronic Assessment and plan: Chronic lower extremity edema, likely from legs being dependent rather than congestive heart failure. Lung findings are reassuring (6) DM type 2 (diabetes mellitus, type 2) Current Visit: Yes Status: Chronic Assessment and plan: The last few blood sugars have been better since he is tapered off the predn isone. Qualifiers: Diabetes mellitus long term care social worker insulin use: with long term care social worker use Diabetes mellitus complication status: with hyperglycemia Qualified Code(s): E11.65 - Type 2 diabetes mellitus with hyperglycemia; Z79.4 - detention (current) use of insulin - Subjective Interval history: Patient states that he did not do therapy in the morning yesterday because he did not feel well, "but I did therapy and a half in the afternoon". Nursing staff reports patient did well in the afternoon and through the night. Patient thinks his breathing is better since he coughed up some "chocolate milk looking" sputum. He states he has a burning sensation on the right side of his chest which he thinks is pulmonary. He denies any angina. Denies palpitations. He has a bit of GI symptoms "all the time". He states it seems better. He does not have the upper GI pressure discomfort that he has had the past couple of mornings. His lower extremities are very swollen, but he admits he has been sitting up with legs dependent a lot more recently. - Constitutional Vitals: Temp Pulse Resp BP Pulse Ox 97.5 F L 69 12 131/43 94 06/01/19 00:00 06/01/19 00:00 06/01/19 04:56 06/01/19 00:00 06/01/19 04:56 General appearance: Present: A&O X 3, answers questions appropriately Exam: Sitting up at the edge of the bed. In no distress. - Respiratory Additional comments: He has less cough this morning. No rattling heard. Lung vu are clear except for diminished breath sounds in left base which is chronic. - Cardiovascular Cardiovascular exam: Present: RRR, +S1, +S2, systolic murmur (2/6 systolic murmur) - Extremities Exam Additional comments: Very edematous feet and ankles and pretibial areas bilaterally. Worse than yesterday. No skin breakdown. No calf tenderness. No weight documented yet. Internal Medicine: Result - Labs CBC & Chem 7: 05/31/19 05:15 05/31/19 05:15 Labs: Previous lab work reviewed. Consult Discharge Plan - Plan Referrals: Mike Kraus MD [Primary Care Provider] -
[2019-06-01] MEDS: Insulin LISPRO 300 UNITS/3 ML VIAL SQ SCH ×4 (08:06→21:03)
[2019-06-01] MEDS: Insulin DETEMIR 100 UNIT/ML X5UNITS SQ SCH (08:07)
[2019-06-01] MEDS: Cholecalciferol (D-3) 1,000 UNIT (25MCG) TABLET PO SCH (08:07)
[2019-06-01] MEDS: Torsemide 20 MG TABLET PO SCH ×3 (08:08→20:36)
[2019-06-01] MEDS: hydrALAZINE 25 MG TABLET PO SCH ×3 (08:08→23:32)
[2019-06-01] MEDS: Vitamin E 200 UNIT (90MG) CAPSULE PO SCH ×2 (08:08→20:36)
[2019-06-01] MEDS: Zinc Sulfate 220 MG CAPSULE PO SCH (08:08)
[2019-06-01] MEDS: FLUoxetine HCl 10 MG CAPSULE PO SCH (08:08)
[2019-06-01] MEDS: Isosorbide MONOnitrate (24 HR) 30 MG TAB.ER.24H PO SCH (08:08)
[2019-06-01] MEDS: ZORTRESS PO SCH ×2 (08:09→20:37)
[2019-06-01] MEDS: Fluticasone Propionate Nasal 50 MCG/SPRAY BOTTLE NS SCH (09:06)
[2019-06-01] MEDS: Budesonide/Formoterol 160/4.5 1 PUFF INH IH SCH ×2 (13:20→20:01)
[2019-06-01] MEDS: Darbepoetin 100 MCG/0.5 ML SYRINGE SQ SCH (16:44)
[2019-06-02 05:28] LABS: Eosinophils # 0.1 K/mcL (0.0-0.6); Eosinophils % 1.2 %; Hematocrit 29.1 % (37.5-50.1); Hemoglobin 8.4 g/dL (12.9-16.9); Immature Granulocytes % 0.7 % (0-4); Lymphocytes # 0.4 K/mcL (0.6-4.6); Lymphocytes % 6.1 %; Mean Corpuscular HGB Conc 28.9 g/dL (31.6-35.5); Mean Corpuscular Hemoglobin 27.8 pg (28.0-33.3); Mean Corpuscular Volume 96.4 fL (83.0-100.0); Monocytes # 0.9 K/mcL (0.0-1.3); Monocytes % 15.2 %; Neutrophils # 4.4 K/mcL (1.6-8.9); Red Blood Count 3.02 M/mcL (4.19-5.50); Red Cell Distribution Width 22.5 % (11.5-14.5); Segmented Neutrophils % 76.8 %; White Blood Count 5.8 K/mcL (4.3-11.1)
[2019-06-02 05:35] LABS: Platelet Count 41 K/mcL (140-400)
[2019-06-02 05:42] LABS: Platelet Estimate Marked Decrease (Normal)
[2019-06-02 05:43] LABS: Anisocytosis 2+ (Not Present)
[2019-06-02 05:44] LABS: Macrocytosis Present (Not Present); Microcytosis Present (Not Present)
[2019-06-02 05:47] LABS: Calcium 8.8 mg/dL (8.6-10.3); Potassium 3.7 mEq/L (3.5-5.1)
[2019-06-02] MEDS: Ipratropium/Albuterol Neb 3 ML IH SCH ×4 (05:51→23:30)
[2019-06-02] MEDS: Budesonide/Formoterol 160/4.5 1 PUFF INH IH SCH ×2 (08:08→20:12)
[2019-06-02] MEDS: FLUoxetine HCl 10 MG CAPSULE PO SCH (08:26)
[2019-06-02] MEDS: Zinc Sulfate 220 MG CAPSULE PO SCH (08:26)
[2019-06-02] MEDS: Vitamin E 200 UNIT (90MG) CAPSULE PO SCH ×2 (08:26→20:32)
[2019-06-02] MEDS: hydrALAZINE 25 MG TABLET PO SCH ×3 (08:26→23:30)
[2019-06-02] MEDS: Isosorbide MONOnitrate (24 HR) 30 MG TAB.ER.24H PO SCH (08:26)
[2019-06-02] MEDS: Cholecalciferol (D-3) 1,000 UNIT (25MCG) TABLET PO SCH (08:26)
[2019-06-02] MEDS: Fluticasone Propionate Nasal 50 MCG/SPRAY BOTTLE NS SCH (08:27)
[2019-06-02] MEDS: Torsemide 20 MG TABLET PO SCH ×3 (08:27→20:32)
[2019-06-02] MEDS: Insulin DETEMIR 100 UNIT/ML X5UNITS SQ SCH (08:27)
[2019-06-02] MEDS: ZORTRESS PO SCH ×2 (08:27→20:32)
[2019-06-02] MEDS: Insulin LISPRO 300 UNITS/3 ML VIAL SQ SCH ×4 (08:29→19:46)
[2019-06-02] MEDS ORDERED: Vancomycin 500 MG in 0.9 % Sodium Chloride Mini Bag 100 ML IVPB ONE (11:00)
--- NOTE | 2019-06-02 13:58 | Internal Med Progress Note ---
Date of Encounter: 06/02/19 Time of Encounter: 13:56 - Assessment and plan (1) Physical deconditioning Current Visit: Yes Status: Acute Assessment and plan: He still has good days and bad days. Sometimes he becomes exhausted as he sometimes overdoes it. Still requiring oxygen. Eager to do therapy this afternoon. I spoken with physical therapy and he may be meeting maximal swing bed/hospital benefit regarding his improvement in functionality at this time. We will reassess in the morning and consider discharge tomorrow afternoon if she is safe to be discharged and home health and home physical therapy can be arranged (2) History of bacterial endocarditis Current Visit: Yes Status: Acute Assessment and plan: No cardiac symptoms. No fevers or chills. No leukocytosis. Effectively he has finished his course of vancomycin. (3) Acute kidney injury superimposed on CKD Current Visit: Yes Status: Acute (4) Thrombocytopenia Current Visit: Yes Status: Acute Assessment and plan: Thrombocytopenia is "stable" in the 40,000 range. No active bleeding at this ti me. [facility] is aware of this. (5) Acute on chronic diastolic CHF (congestive heart failure) Current Visit: Yes Status: Chronic Assessment and plan: Dependent edema. I do not feel this is congestive heart failure though. I do not think he would tolerate compression of lower extremities and risk for CHF ac utely as well. Continues with torsemide 3 times a day. (6) DM type 2 (diabetes mellitus, type 2) Current Visit: Yes Status: Chronic Assessment and plan: Sugars are in the 100s and low 200s now. Continue current regimen. He has finished a course of prednisone Qualifiers: Diabetes mellitus intermission coordinator insulin use: with intermission coordinator use Diabetes mellitus complication status: with hyperglycemia Qualified Code(s): E11.65 - T ype 2 diabetes mellitus with hyperglycemia; Z79.4 - retirement (current) use of insulin - Subjective Interval history: Patient thinks that his breathing is better since he coughed up thick glob of sputum this morning. He denies any cardiac type chest pain. He did well with therapy this morning, but at lunch time the nurses report he was totally exhausted and slept. This afternoon though, he is dressed and heading to therapy and eager to try to do it. He states that his GI/upper abdominal pressure and discomfort is gone. He states his feet and ankles hurt because of swelling. His reported from the pharmacist that the [place] pharmacist and [facility] have spoken and with his renal failure, his sustained levels of vancomycin, that he will not need anymore IV doses at this time to finish out his course. Now the limiting factor will be his physical capacity to be at home - Constitutional Vitals: Temp Pulse Resp BP Pulse Ox 98.8 F 70 18 126/44 96 06/02/19 08:37 06/02/19 08:37 06/02/19 11:11 06/02/19 08:37 06/02/19 11:11 General appearance: Present: A&O X 3, answers questions appropriately - Respiratory Additional comments: He is not having a loose rattling cough. The lung vu are clear except for slightly diminished left base. No respiratory distress. Still on 3-4 L per nasal cannula - Cardiovascular Cardiovascular exam: Present: RRR, +S1, +S2, systolic murmur (2 to 3/6 systolic murmur. Occasional ectopy. Underlying rhythm appears to be regular.) - Extremities Exam Additional comments: markedly edematous shins and feet. Nontender. No skin breakdown. Internal Medicine: Result - Labs CBC & Chem 7: 06/02/19 04:34 06/02/19 04:34 Labs: Short CBC 06/02/19 Range/Units 04:34 WBC 5.8 (4.3-11.1) K/mcL Hgb 8.4 L (12.9-16.9) g/dL Hct 29.1 L (37.5-50.1) % Plt Count 41 L (140-400) K/mcL Neutrophils # 4.4 (1.6-8.9) K/mcL BMP 06/02/19 04:34 Sodium 142 Potassium 3.7 Chloride 102 Carbon Dioxide 32 H BUN 125 H Creatinine 3.37 H Glucose 148 H Calcium 8.8 Labs are relatively stable. Hemoglobin staying in 8 g range. Renal function sl ightly improved at 3.37. Platelets have plateaued at palma of 40-41,000 Consult Discharge Plan - Plan Referrals: Mike Kraus MD [Primary Care Provider] -
[2019-06-03] MEDS: Ipratropium/Albuterol Neb 3 ML IH SCH ×2 (05:20→11:18)
[2019-06-03] MEDS ORDERED: FUROSEMIDE IV ONE (07:41)
[2019-06-03] MEDS ORDERED: SODIUM CHLORIDE 0.9% IV ONE (07:41)
--- NOTE | 2019-06-03 07:50 | Discharge Summary ---
- NOTES TO OUTPATIENT PROVIDER Notes to Outpatient Provider: #1. Needs close follow-up with nephrology/Dr. Rodriguez or [facility], particularly due to lower extremity edema. #2. 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 In the past he was positive for [place]. In our facility he continued with vancomycin intravenously. The dosing was adjusted by the pharmacist. With his worsening renal failure, and following the vancomycin levels, he does not need any further vancomycin dosing intravenously as it is staying in his system for several days. He has finished a full course of treatment for endocarditis. He has had no fever spikes, leukocytosis or worsening symptoms in that regard. (2) Physical deconditioning Priority: Secondary Status: Acute Comments: Patient was in her swing bed program for intravenous vancomycin for endocarditis, but also for deconditioning. He underwent therapies with physical therapy and occupational therapy. He had slow improvement. He had some good days and some bad days. When he felt good he may have overdone the therapy, because it was sometimes too much for him. On day of discharge physical therapy and outpatient therapy felt that he is getting better slowly, but keeping him for therapy would not necessarily speed up that process. They felt he was safe to send home with his helping with his ADLs. Home health, home health aid for bathing, and home physical therapy arranged (3) Acute kidney injury superimposed on CKD Priority: Secondary Status: Acute Comments: Patient has known history of chronic kidney failure, previous renal transplant, and his baseline creatinine has worsened from 2-3 range to now 3-4 range. His creatinine has improved to 3.86. It is been stable for the past few days now. He will follow-up with Dr. Rodriguez as well as [facility] (4) Thrombocytopenia Priority: Secondary Status: Acute Comments: Patient came to us with having had thrombocytopenia down into the 60-70,000 range as noted at [facility]. Was seen by hematology. No active bleeding noted. They suggested just following at this time. It is remaining stable, being as low as 40,000. No active bleeding noted. He will follow up with [facility] hematology or [facility] (5) Acute on chronic diastolic CHF (congestive heart failure) Priority: Secondary Status: Chronic Comments: Patient is known history of acute on chronic CHF. During his hospital stay his lung status improved and was stable. He did however have edema of lower extremities which worsened. He lost 7 pounds, then gained about 4 pounds back. He will need to see nephrology for further adjustment of his medications. (6) DM type 2 (diabetes mellitus, type 2) Priority: Secondary Status: Chronic Comments: Some days his blood sugars were in the 200s and 300s. He was on prednisone when he came to was. He has not tapered off the prednisone. Blood sugars are in the 100s to 200 range typically. Adjustments in his sliding scale made. Glycohemoglobin was last tested in January and was 7.9% Qualifiers: Diabetes mellitus skilled nursing insulin use: with termite inspector use Diabetes mellitus complication status: with hyperglycemia Qualified Code(s): E11.65 - Type 2 diabetes mellitus with hyperglycemia; Z79.4 - continuous churn buttermaker (current) use of insulin Hospital course: Mr. 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 Please see the diagnoses above. Discharge discussed with: patient, family - Time Spent with Patient Total time spent providing and/or coordinating discharge services: - Discharge Medications Prescriptions: New Ipratropium/Albuterol Neb [Duoneb] 3 ml IH QIDR inhsol Darbepoetin [Aranesp] 100 mcg SQ QWEEK syringe Acetaminophen [Tylenol] 500 mg PO Q6HR PRN tablet PRN Reason: Pain Omeprazole [PriLOSEC] 20 mg PO DAILY@0630 capsule. Insulin LISPRO [HumaLOG] 0 units SQ HS vial Insulin LISPRO [HumaLOG] 0 units SQ TIDAC vial Continued Tamsulosin [Flomax] 0.4 mg PO DAILY FLUoxetine HCl [Prozac] 10 mg PO DAILY Carvedilol [Coreg] 50 mg PO BID Everolimus [Zortress] 1 mg PO BID Insulin Glargine [Lantus] 15 unit SQ DAILY Insulin ASPART [Novolog Flexpen] 100 unit SQ QID PRN PRN Reason: Blood Sugar - High Calcitriol [Rocaltrol] 0.5 mcg PO DAILY Polyethylene Glycol 3350 [MiraLAX Powder Bulk 17.9 Oz] 1 scoop PO DAILY Budesonide/Formoterol 160/4.5 [Symbicort 160/4.5] 2 puff IH BIDR Cholecalciferol (Vitamin D3) [Vitamin D3] 1,000 unit PO DAILY Albuterol Neb [AccuNeb] 1.25 mg IH Q4HR PRN PRN Reason: Dyspnea hydrALAZINE [HydrALAZINE] 75 mg PO Q8HR Isosorbide MONOnitrate (24 HR) [Imdur] 30 mg PO DAILY Vitamin E (Dl,Tocopheryl Acet) [Vitamin E] 400 unit PO BID Torsemide [Demadex] 40 mg PO TID #90 tablet Octreotide [SandoSTATIN] 100 mcg SQ BID Zinc Sulfate 220 mg PO DAILY Sevelamer [Renvela] 1,600 mg PO TIDWM Fluticasone Propionate Nasal [Flonase] 2 spray NS DAILY Home Medications: Tamsulosin [Flomax] 0.4 mg PO DAILY 05/22/15 [History] Carvedilol [Coreg] 50 mg PO BID 04/18/16 [History] Everolimus [Zortress] 1 mg PO BID 04/18/16 [History] FLUoxetine HCl [Prozac] 10 mg PO DAILY 04/18/16 [History] Calcitriol [Rocaltrol] 0.5 mcg PO DAILY 11/04/16 [History] Insulin ASPART [Novolog Flexpen] 100 unit SQ QID PRN 11/04/16 [History] Insulin Glargine [Lantus] 15 unit SQ DAILY 11/04/16 [History] Budesonide/Formoterol 160/4.5 [Symbicort 160/4.5] 2 puff IH BIDR 04/27/17 [History] Cholecalciferol (Vitamin D3) [Vitamin D3] 1,000 unit PO DAILY 04/27/17 [History] Albuterol Neb [AccuNeb] 1.25 mg IH Q4HR PRN 04/04/18 [History] Isosorbide MONOnitrate (24 HR) [Imdur] 30 mg PO DAILY 04/04/18 [History] Vitamin E (Dl,Tocopheryl Acet) [Vitamin E] 400 unit PO BID 04/04/18 [History] hydrALAZINE [HydrALAZINE] 75 mg PO Q8HR 04/04/18 [History] Torsemide [Demadex] 40 mg PO TID #90 tablet 04/13/18 [Rx] Polyethylene Glycol 3350 [MiraLAX Powder Bulk 17.9 Oz] 1 scoop PO DAILY 04/27/18 [History] Octreotide [SandoSTATIN] 100 mcg SQ BID 05/04/19 [History] Fluticasone Propionate Nasal [Flonase] 2 spray NS DAILY 05/24/19 [History] Sevelamer [Renvela] 1,600 mg PO TIDWM 05/24/19 [History] Zinc Sulfate 220 mg PO DAILY 05/24/19 [History] Acetaminophen [Tylenol] 500 mg PO Q6HR PRN tablet 06/03/19 [Rx] Darbepoetin [Aranesp] 100 mcg SQ QWEEK syringe 06/03/19 [Rx] Insulin LISPRO [HumaLOG] 0 units SQ HS vial 06/03/19 [Rx] Insulin LISPRO [HumaLOG] 0 units SQ TIDAC vial 06/03/19 [Rx] Ipratropium/Albuterol Neb [Duoneb] 3 ml IH QIDR inhsol 06/03/19 [Rx] Omeprazole [PriLOSEC] 20 mg PO DAILY@0630 capsule. 06/03/19 [Rx] Allergies/Adverse Reactions: Allergy/AdvReac Type Severity Reaction Status Date / Time levofloxacin [From Levaquin] AdvReac Severe Nausea Verified 03/14/19 13:30 Twclgst-Wxi-Xlg Reductase AdvReac Weakness Verified 03/14/19 13:30 Inhibitor [Statins] Date of admission: 05/24/19 13:58 Primary care physician: Mike Kraus MD Consults: 05/24/19 16:08 Consult to Occupational Therapy [CONS] Routine Comment: Evaluate, develop and implement POC Reason for Consult: weakness Does patient have active BEDREST order?: No Is patient medically & hemodynamically stable?: Yes Consult to Physical Therapy [CONS] Routine Comment: Evaluate, develop and implement POC Reason for Consult: weakness Does patient have active BEDREST order?: No Is patient medically & hemodynamically stable?: Yes Consult to Line Person [CONS] Routine Reason for SW Consult: discharge planning 05/25/19 12:13 Consult to Nutrition [CONS] Routine Comment: Consulting Provider: NUTRITION Reason for Dietary Consult: PO Supplementation Discharging clinician: Mike Kraus Anticipated date of discharge: 06/03/19 - Constitutional Vitals: Temp Pulse Resp BP Pulse Ox 97.5 F L 71 14 135/53 98 06/02/19 19:09 06/02/19 23:30 06/02/19 20:15 06/02/19 23:30 06/02/19 20:15 General appearance: Present: A&O X 3, answers questions appropriately - Respiratory Additional comments: He is not having the deeper rattling cough. Lungs show diminished breath sounds but clear, particularly decrease in left base chronically. No rhonchi or crackles heard. No respiratory distress. No orthopnea. - Cardiovascular Cardiovascular exam: Present: irregular rhythm, +S1, +S2, systolic murmur (2/6 systolic murmur.) - GI/Abdominal GI/Abdominal exam: Present: soft. Absent: tenderness - Extremities Exam Additional comments: Pitting edema nearly to the knees. Dorsum of feet with pitting edema. No skin breakdown. - Patient Status Disposition: Home Health Service Condition: Fair Functional capacity at discharge: uses cane/walker Overall status at discharge: patient is progressing back to baseline - Discharge Instructions Follow Up With: Mike Kraus MD [Primary Care Provider] - - Diet and Activity Activity: ambulate only with your walker, as per physical therapy, wear oxygen at all times Diet: low salt diet, other (Renal diet)
--- NOTE | 2019-06-03 07:54 | Physician Discharge Referral ---
Home Health/Hosp Referral Info Transfer to: Home Health Provider in Charge Post Discharge: PCP - Diagnosis (1) Physical deconditioning Priority: Primary Status: Acute (2) History of bacterial endocarditis Priority: Secondary Status: Acute (3) Acute kidney injury superimposed on CKD Priority: Secondary Status: Acute (4) Thrombocytopenia Priority: Secondary Status: Acute (5) Acute on chronic diastolic CHF (congestive heart failure) Priority: Secondary Status: Chronic (6) DM type 2 (diabetes mellitus, type 2) Priority: Secondary Status: Chronic (7) Atrial fibrillation Priority: Secondary Status: Acute - Respiratory Orders Oxygen / L per min (3-4 L per nasal cannula) Smoking Cessation: Smoking cessation has been advised. For more information, call the [employer] Tobacco Quit Line at 5-165-WMPL-NOW. - Diet/Nutrition Diet/Nutrition Orders: No Added Salt (ZAINAB), Renal, No Concentrated Sweets - Activity Activity Orders: Walker - Services Needed Following services are medically necessary services: Nursing, Home Health Aide, Physical Therapy, Occupational Therapy - Transfer Medications Home Medications: Tamsulosin [Flomax] 0.4 mg PO DAILY 05/22/15 [History] Carvedilol [Coreg] 50 mg PO BID 04/18/16 [History] Everolimus [Zortress] 1 mg PO BID 04/18/16 [History] FLUoxetine HCl [Prozac] 10 mg PO DAILY 04/18/16 [History] Calcitriol [Rocaltrol] 0.5 mcg PO DAILY 11/04/16 [History] Insulin ASPART [Novolog Flexpen] 100 unit SQ QID PRN 11/04/16 [History] Insulin Glargine [Lantus] 15 unit SQ DAILY 11/04/16 [History] Budesonide/Formoterol 160/4.5 [Symbicort 160/4.5] 2 puff IH BIDR 04/27/17 [History] Cholecalciferol (Vitamin D3) [Vitamin D3] 1,000 unit PO DAILY 04/27/17 [History] Albuterol Neb [AccuNeb] 1.25 mg IH Q4HR PRN 04/04/18 [History] Isosorbide MONOnitrate (24 HR) [Imdur] 30 mg PO DAILY 04/04/18 [History] Vitamin E (Dl,Tocopheryl Acet) [Vitamin E] 400 unit PO BID 04/04/18 [History] hydrALAZINE [HydrALAZINE] 75 mg PO Q8HR 04/04/18 [History] Torsemide [Demadex] 40 mg PO TID #90 tablet 04/13/18 [Rx] Polyethylene Glycol 3350 [MiraLAX Powder Bulk 17.9 Oz] 1 scoop PO DAILY 04/27/18 [History] Octreotide [SandoSTATIN] 100 mcg SQ BID 05/04/19 [History] Fluticasone Propionate Nasal [Flonase] 2 spray NS DAILY 05/24/19 [History] Sevelamer [Renvela] 1,600 mg PO TIDWM 05/24/19 [History] Zinc Sulfate 220 mg PO DAILY 05/24/19 [History] Acetaminophen [Tylenol] 500 mg PO Q6HR PRN tablet 06/03/19 [Rx] Darbepoetin [Aranesp] 100 mcg SQ QWEEK syringe 06/03/19 [Rx] Insulin LISPRO [HumaLOG] 0 units SQ HS vial 06/03/19 [Rx] Insulin LISPRO [HumaLOG] 0 units SQ TIDAC vial 06/03/19 [Rx] Ipratropium/Albuterol Neb [Duoneb] 3 ml IH QIDR inhsol 06/03/19 [Rx] Omeprazole [PriLOSEC] 20 mg PO DAILY@0630 capsule. 06/03/19 [Rx] Allergies/Adverse Reactions: Allergy/AdvReac Type Severity Reaction Status Date / Time levofloxacin [From Levaquin] AdvReac Severe Nausea Verified 03/14/19 13:30 Vdhdwkr-Low-Aui Reductase AdvReac Weakness Verified 03/14/19 13:30 Inhibitor [Statins] Certification: Further, I certify that my clinical findings support that this patient is homebound (i.e. absences from home require considerable and taxing effort and are for medical reasons or buddhist services or infrequently or short duration when for other reasons) because: Homebound Reason: Patient requires assistance of a person or device to safely leave home, Leaving home requires considerable and taxing effort due to condition, Severity of cardiac or pulmonary status limits activity tolerance Attestation: My signature below is to certify that this patient is under my care and that I, or nurse practitioner, or a physician's talent acquisition assistant working with me, has a [id number] encounter with this patient.
[2019-06-03] MEDS: Vitamin E 200 UNIT (90MG) CAPSULE PO SCH (08:24)
[2019-06-03] MEDS: Torsemide 20 MG TABLET PO SCH ×2 (08:25→15:32)
[2019-06-03] MEDS: hydrALAZINE 25 MG TABLET PO SCH (08:25)
[2019-06-03] MEDS: Cholecalciferol (D-3) 1,000 UNIT (25MCG) TABLET PO SCH (08:25)
[2019-06-03] MEDS: Isosorbide MONOnitrate (24 HR) 30 MG TAB.ER.24H PO SCH (08:26)
[2019-06-03] MEDS: Insulin DETEMIR 100 UNIT/ML X5UNITS SQ SCH (08:26)
[2019-06-03] MEDS: Fluticasone Propionate Nasal 50 MCG/SPRAY BOTTLE NS SCH (08:26)
[2019-06-03] MEDS: FLUoxetine HCl 10 MG CAPSULE PO SCH (08:26)
[2019-06-03] MEDS: Zinc Sulfate 220 MG CAPSULE PO SCH (08:26)
[2019-06-03] MEDS: Insulin LISPRO 300 UNITS/3 ML VIAL SQ SCH ×2 (08:30→12:23)
[2019-06-03 09:23] VITALS: BP 144/62
[2019-06-03] MEDS ORDERED: Aminoglycoside Consult 1 EACH MC ONE (10:36)
[2019-06-03] MEDS: Budesonide/Formoterol 160/4.5 1 PUFF INH IH SCH (11:18)
[2019-06-03] MEDS: ZORTRESS PO SCH (11:46)
== END 2019-06-03 16:00 | disposition home health service (06) | DRG 288 ==
LOC: INPGRE 05-24 13:58
PROVIDERS: ADMIT Family Medicine; ATTEND Family Medicine